=== PATIENT | female | born 1955 | race Two or more races ===

== ENCOUNTER 2024-02-09 12:17 | Outpatient (OUT) | payer MEDICARE, SELFPAY ==
--- NOTE | 2024-02-09 12:28 | ECG_ITS ---
[facility] Test Date: 2024-02-09 Pat Name: GLO MEREDITH Department: Room: - Gender: Female Cat Scan Technologist: : 1955 Requested By: Order Number: [id number] Reading MD: MADELINE GARSIA Measurements Intervals [place] Rate: 70 P: 51 DE: 159 QRS: -26 QRSD: 95 T: 18 QT: 400 QTc: 432 Interpretive Statements SINUS RHYTHM MODERATE VOLTAGE CRITERIA FOR LVH, CONSIDER NORMAL VARIANT [MEETS CRITERIA IN ONE OF: R(aVL), S(V1), R(V5), R(V5/V6)+S(V1)] POSSIBLE LATERAL MYOCARDIAL INFARCTION [30 ms Q WAVE IN I/aVL/V5/V6], PROBABLY OLD No previous ECG available for comparison Electronically Signed On 02-09-2024 22:24:06 EDT by MADELINE GARSIA
== END 2024-02-09 12:18 | disposition home or self-care (01) ==
LOC: PST 12:21
PROVIDERS: PCP Family Medicine; Visit Provider Urology
DX: Z01.810 Encounter for preprocedural cardiovascular examination (principal); N13.5 Crossing vessel and stricture of ureter without hydronephrosis
CPT/HCPCS: 93005

== ENCOUNTER 2024-02-17 12:05 | Day surgery (SDC) | payer MEDICARE, SELFPAY ==
[2024-02-09 12:56] VITALS: BP 130/79; PULSE 72; TEMP 36.3; O2SAT 98; BMI 30.7
[2024-02-17] VITALS (11 sets, daily range): BP systolic 134–155; BP diastolic 71–84; PULSE 65–98; TEMP 36.3–36.4; O2SAT 92–98; BMI 30.5
--- NOTE | 2024-02-17 | XR_ITS ---
The [address] [address] Patient Name: GLO MEREDITH MRN: [id number] date: 1955 Sex: F Assigned Patient Location: SURGOUT Current Patient Location: Accession/Order Number: [id number] Exam Date: 02/17/2024 14:00 Report Date: 02/17/2024 16:15 At the request of: NAUN OSUNA Procedure: XR urethrogram retrograde EXAM: XR urethrogram retrograde HISTORY: Kidney stone COMPARISON: None. TECHNIQUE: FINDINGS: Single frontal spot fluoroscopic image demonstrates placement of a right ureteral stent with proximal end coiled over expected location of the renal pelvis. Distal end projects over urinary bladder. XR/XR urethrogram retrograde IMPRESSION: 1. Right ureteral stent appearing to be in good position. Electronically authenticated by: GINA HONEYCUTT Date: 02/17/2024 16:15
[2024-02-17] MEDS: LACTATED RINGER'S SOLUTION 1,000 ML 50 ML IV (12:48)
[2024-02-17] MEDS: CEFAZOLIN SODIUM 2 GM/50 ML D5W PREMIX IV (13:49)
[2024-02-17] MEDS: IOHEXOL 300 MG/ML - 50 ML BTL INJ (14:39)
--- NOTE | 2024-02-17 14:54 | P.URON_ITS ---
Urology Surgery Operative Note Operative Note Procedure Date: 02/17/24 Time Out Performed: yes Pre-op Diagnosis: Right Ureteropelvic junction obstruction Post-op Diagnosis: same as pre-op Procedures performed: Cystoscopy, right retrograde pyelogram, right ureteroscopy, stent placement Anesthesia: General-LMA (Dr. Bocanegra) Primary Surgeon: Sahra Wadsworth Complications: none Estimated blood loss (mL): 0 Findings: 2+ trabeculated bladder with scattered large diverticuli at bladder base. Right distal ureter narrow, J-hooking, no filling defects or extravasation, ~ 1 cm UPJ narrowing to severe hydronephrosis R URS- able to advance ureteroscope over wire to UPJ without noted tumors or lesions. Mildly cloudy urine in renal pelvis Specimens: none Drains: 7Fr x 22-32 cm JJ right ureteral stent Incision: none Indications for Procedures: 68 year old female with symptomatic UPJ obstruction and increased hydronephrosis since 07/2023. After discussion of risks/benefits of management options, she elected to proceed with the above procedures for decompression and further evaluation. Risks were discussed including but not limited to bleeding, pain, infection, damage to surrounding structures, inability to place a stent, and need for additional procedures. The patient understands the stent is not permanent and needs to be removed or exchanged within 3 months to prevent encrustation, infection, invasive procedures and/or permanent renal damage. Detailed description of Procedure: After informed consent was obtained, the patient was brought to the operating room and transferred onto the operating table in supine position. Sequential compression devices were placed on bilateral lower extremities. The patient received the appropriate dose of preoperative IV antibiotics and general anesthesia LMA was induced. They were positioned in modified dorsolithotomy with the appropriate pressure points padded, prepped, and draped in the usual sterile fashion for this procedure. An operative safety timeout was performed confirming the patient's identity, laterality and procedure, and all present agreed to proceed. I began by inserting a 22 [place] rigid cystoscope with 30 degree lens into the patient's urethra and bladder without difficulty. There were no bladder tumors, lesions, stones or foreign bodies. Bilateral ureteral orifices were orthotopic and patent. I turned my attention to the right ureteral orifice and a 6- [place] open-ended catheter was inserted into the ureteral orifice and dilute contrast was injected for retrograde pyelogram with findings as above. A Sensor wire was inserted into the ureter up to the renal pelvis confirmed on fluoroscopy. Next a flexible ureteroscope was inserted over the wire, however unable to enter UO. A semirigid ureteroscope was inserted over the wire noting some tightness in distal ureter, able to safely advance to UPJ noting no tumors or lesions. There appeared to be narrowing of the UPJ without visible stricture, able to easily insert ureteroscope. The wire was left behind and a pull down ureteroscopy was performed confirming no other abnormalities. The wire was backloaded through the cystoscope and 7Fr x 22-32cm JJ variable length ureteral stent was advanced over the wire, noting adequate curl in the renal pelvis and bladder on fluoroscopic and direct visualization. The bladder was drained and inspected one final time to ensure adequate position of stent and no undue trauma to the bladder was done. The cystoscope was removed. The patient tolerated the procedure well without complication. The patient was awakened from anesthesia and sent to PACU in stable condition. Plan: Discharge home with stent pain medications. Follow up in 2-3 weeks with NM renal scan to determine next steps and re-evaluate symptoms. Other Provider present: No Post Operative care instructions: See discharge instructions Attending Doc Confirm Attending Attestation: Yes
== END 2024-02-17 15:42 | disposition home or self-care (01) ==
PROVIDERS: PCP Family Medicine; Visit Provider Urology
PROC: (CPT 52332; principal; 2024-02-17 13:30)
DX: N13.5 Crossing vessel and stricture of ureter without hydronephrosis (principal); E78.2 Mixed hyperlipidemia; K44.9 Diaphragmatic hernia without obstruction or gangrene; N32.89 Other specified disorders of bladder; N28.1 Cyst of kidney, acquired; Z90.710 Acquired absence of both cervix and uterus
CPT/HCPCS: 52332; 52351; 74420; J0690; J1100; J2250; J2405; J2704; Q9967

== ENCOUNTER 2024-03-03 07:21 | Outpatient (OUT) | payer MEDICARE, SELFPAY ==
--- NOTE | 2024-03-03 07:20 | NM_ITS ---
The [address] [address] Patient Name: GLO MEREDITH MRN: [id number] date: 1955 Sex: F Assigned Patient Location: [place] Current Patient Location: [place] Accession/Order Number: [id number] Exam Date: 03/03/2024 07:20 Report Date: 03/03/2024 13:46 At the request of: NAUN OSUNA Procedure: NM renal flow w/wo pharm int EXAMINATION: NM renal flow w/wo pharm int HISTORY: HYDRONEPHROSIS COMPARISON: No relevant comparison available. TECHNIQUE: After IV administration of Tc-99m MAG-3, sequential renal flow images were acquired followed by sequential static images. Quantitative analysis was performed of both kidneys. Subsequently, the patient was given Lasix IV for determination of renal washout. FINDINGS: ARTERIAL PERFUSION: Normal and symmetric. TIME TO PEAK (LEFT): 9.5 minutes (Normal-less than five minutes). TIME TO PEAK (RIGHT): 19.8 minutes (Normal-less than five minutes). PERCENT UPTAKE: Left 52% : Right 48% T 1/2 POST-LASIX (LEFT): 4.8 minutes. T 1/2 POST-LASIX (RIGHT): 43.2 minutes. (Normal < 10 min, equivocal 10-20 min, abnormal > 20 min.). BLADDER: Normal. OTHER: Negative. NM/NM renal flow w/wo pharm int IMPRESSION: Delayed time to peak on the right with abnormal post Lasix washout Electronically authenticated by: ANA GUADARRAMA Date: 03/03/2024 13:46
--- OUTSIDE RECORDS SUMMARY | 2024-03-03 07:24 | XMS_ITS | CCD ---
Author Organization [facility] Care Team Providers Care Bilingual [employer] Name Role Phone KEILY COWAN Unavailable Unavailable KEILY COWAN Unavailable Unavailable ANGELES HERNANDEZ) Admitting Unavailable ANGELES HERNANDEZ) Attending Unavailable ANGELES HERNANDEZ) Admitting Unavailable ANGELES HERNANDEZ) Attending Unavailable ANGELES HERNANDEZ) Admitting Unavailable ANGELES HERNANDEZ) Attending Unavailable ANGELES HERNANDEZ) Referring Unavailable Barb Gee Primary Care Physician Barb Gee Primary Care Provider Barb Gee Primary Care Provider BARB GEE Primary Care Unavailabl e ROSALBA RACHEL Attending Unavailable RACHELROSALBA Okeefe Referring Unavailable RACHELROSALBA [place] Admitting Unavailable ROSALBA RACHEL Attending Unavailable Julien Anthony Admitting Unavailab Julien Gant Attending Unavailab DO Ayaz Toussaint Attending Unavailable Sahra Wadsworth Attending Unavailable DO Ayaz Charles Attending Unavailable Barb Gee Primary Care Provider [phone] Sahra Wadsworth Attending Unavailable Sahra Wadsworth Attending Unavailable Sahra Wadsworth Referring Unavailable Sahra Wadsworth Attending Unavailable Allergies Allergy Classification Reported Allergen(s) Allergy Type Date of Onset Reaction(s) Facility (9 sources) Sulfonamides (Antibiotic); Translations: [SULFA (SULFONAMIDE ANTIBIOTICS)] Propensity to adverse reactions to drug (disorder) 201 7 Hives [facility] Other [place] Repository (11 sources) Sulfamethoxazole; Translations: [sulfamethoxazole ] Drug Allergy [facility] Medications Current Medications Medication Drug Class(es) Dates Sig (Normalized) Sig (Original) acetaminophen 500 mg oral tablet (15 sources) Start: 03-27-2017 take 2 tablets by mouth at bedtime acetaminophen 500 mg Tab 1,000 mg = 2 tab(s), Oral, Bedtime, Refills(s) 0, Pain Start Date: 03/27/17 Status: Ordered Comment on above: Take 2 tablets by [facility] every 6 hours. aspirin 81 mg delayed release oral tablet (6 sources) Platelet Aggregation Inhibitor, Nonsteroidal Anti-inflammatory Drug Start: 03-28-2017 take 1 tablet by mouth once daily aspirin 81 mg Oral EC Tab 81 mg = 1 tab(s), Oral, Daily, Refills(s) 0, Prophylaxis Start Date: 03/28/17 Status: Ordered calcium carbonate 1500 mg oral tablet (6 sources) Start: 11-04-2017 take 1 tablet by mouth once daily calcium (as carbonate) 600 mg oral tablet 600 mg = 1 tab(s), Oral, Daily, Refills(s) 0, Prophylaxis Start Date: 11/04/17 Status: Ordered cephalexin 500 mg oral capsule (1 source) Cephalosporin Antibacterial Start: 01-24-2024 End: 01-29-2024 take 1 capsule by mouth three times daily Keflex 500 mg Cap 500 mg = 1 cap(s), Oral, TID, X 5 day(s), # 15 cap(s), Refills(s) 0, Pharmacy: [facility] #[facility], 160, cm, 01/24/24 3:58:00 EDT, Height/Length Dosing, 80.4, kg, 01/24/24 3:58:00 EDT, Weight Dosing Start Date: 01/24/24 Stop Date: 01/29/24 Status: Ordered lubiprostone 0.024 mg oral capsule (8 sources) Chloride Channel Activator Start: 08-28-2020 End: 09-22-2022 take 1 capsule by mouth twice daily at mealtime lubiprostone (AMITIZA) 24 mcg capsule Take 1 capsule by mouth twice daily with meals. Patient will be renewing enrollment in the patient assistance program. 180 capsule 3 06/24/2022 Active Comment on above: Take 1 capsule by mo ut twice daily with meals. Take 1 capsule by [facility] twice daily with meals. Patient will be renewing enrollment in the patient assistance program. metoclopramide 10 mg oral tablet (12 sources) Dopamine-2 Receptor Antagonist Start: 11-05-2017 take 1 tablet by mouth three times daily Reglan 10 mg Tab 10 mg = 1 tab(s), Oral, TID, # 90 tab(s), Refills(s) 1, Pharmacy: [id number] Start Date: 11/05/17 Status: Ordered Start: 11-04-2017 take 5 mg by mouth t hree times daily metoclopramide 5 mg, Oral, TID, Refills(s) 0, Indigestion Start Date: 11/04/17 Status: Ordered multivitamin tablet (7 sources) Start: 08-11-2017 take 1 tablet by mouth once daily multivitamin tablet Take 1 tablet by mouth once daily. 08/11/2017 Active Start: 08-11-2017 take 1 tablet by susanne [facility] once daily multivitamin tablet Take 1 tablet by mouth once daily. 0 08/11/2017 Active Comment on above: Take 1 tablet by susanne [facility] once daily. naproxen 500 mg oral tablet (3 sources) Nonsteroidal Anti-inflammatory Drug Start: 01-24-20 take 1 tablet by mouth twice daily as needed for pain Naprosyn 500 mg Tab 500 mg = 1 tab(s), Oral, BID, PRN for pain, # 20 tab(s), Refills(s) 0, Pharmacy: [id number], 160, cm, 01/24/24 3:58:00 EDT, Height/Length Dosing, 80.4, kg, 01/24/24 3:58:00 EDT, Weight Dosing Start Date: 01/24/24 Status: Ordered omeprazole 40 mg oral tablet (6 sources) Proton Pump Inhibitor Start: 11-05-19 take 40 mg by mouth once daily omeprazole 40 mg, Oral, Daily, Refills(s) 0, Prophylaxis Start Date: 11/04/17 Status: Ordered prucalopride 2 mg oral tablet (7 sources) Start: 12-05-19 take 1 tablet by mouth once daily prucalopride 2 mg tablet (MOTEGRITY) Indications: Chronic idiopathic constipation Take 1 tablet (2 mg) by mouth once daily. 30 tablet 6 12/05/2019 Active Comment on above: Take 1 tablet (2 mg) by mouth once daily. simvastatin 10 mg oral tablet (3 sources) HMG-CoA Reductase Inhibitor take 1 tablet by mouth once daily at bedtime simvastatin (ZOCOR) 10 mg tablet Take 10 mg by mouth daily at bedtime. Active Comment on above: Take 10 mg by mouth daily at bedtime. tenapanor 50 mg oral tablet (8 sources) Start: 07-14-19 End: 02-03-20 take 1 tablet by mouth twice daily IBSRELA 50 mg tablet Indications: Irritable bowel syndrome with constipation take one tablet by mouth twice daily 60 tablet 5 02/03/2024 Active Start: 06-24-2022 take 1 tablet by susanne th twice daily tenapanor (IBSRELA) 50 mg tablet Indications: Irritable bowel syndrome with constipation Take 1 tablet (50 mg) by mouth twice daily. 60 tablet 5 06/24/2022 Active Comment on above: Take 1 tablet (50 mg ) by mouth twice daily. Take 1 tablet (50 mg ) by mouth two times a day. Zofran ODT 4 mg Tab-Dis (3 sources) Start: 01-24-2024 take 1 tablet by mouth every six hours Zofran ODT 4 mg Tab-Dis 4 mg = 1 tab(s), Oral, q6hr, # 12 tab(s), Refills(s) 0, Pharmacy: [facility], 160, cm, 01/24/24 3:58:00 EDT, Height/Length Dosing, 80.4, kg, 01/24/24 3:58:00 EDT, Weight Dosing Start Date: 01/24/24 Status: Ordered Completed/Discontinued Medications Medication Drug Class(es) Dates Sig (Normalized) Sig (Original) potassium chloride 20 meq extended release oral tablet (6 sources) Start: 11-04-2017 take 1 tablet by mouth once daily potassium chloride 20 mEq ER Tab 20 mEq = 1 tab(s), Oral, Daily, # 30 tab(s), Refills(s) 0, Prophylaxis Start Date: 11/04/17 Status: Ordered Problems Active Problems Problem Classification Problem Date Documented Da te Episodic/Chronic Disorders of lipid metabolism (2 sources) Mixed hyperlipidemia 01-27-2024 Chronic Joint disorders and dislocations; trauma-related (8 sources) Tear of meniscus of knee 03-08-2015 Episodic Comment on above: medial and lateral r ight knee Nausea and vomiting (1 source) Nausea and vomiting; Translations: [Nausea with vomiting, unspecified] Onset: 4 Episodic Other diseases of kidney and ureters (2 sources) Acquired renal cyst without neoplastic change; Translations: [Cyst of kidney, acquired] Onset: 4 Episodic Other diseases of kidney and ureters (3 sources) Hydronephrosis; Translations: [Unspecified hydronephrosis] Onset: 4 Episodic Other diseases of kidney and ureters (1 source) Stricture of ureter; Translations: [Crossing vessel and stricture of ureter without hydronephrosis] Onset: 4 Episodic Other diseases of kidney and ureters (2 sources) Cyst of kidney 01-27-2024 Episodic Other diseases of kidney and ureters (2 sources) Obstruction of pelviureteric junction 01-27-2024 Episodic Other gastrointestinal disorders (2 sources) Irritable bowel syndrome characterized by constipation; Translations: [Irritable bowel syndrome with constipation] Chronic Other nutritional; endocrine; and metabolic disorders (7 sources) Obesity; Translations: [Obesity, unspecified] Onset: 8 07-27-2017 Chronic Residual codes; unclassified (1 source) Other specified postprocedural states; Translations: [Other specified postprocedural states] Onset: 8 Unclassified (2 sources) Chest pain, unspecified / R07.9(ICD-9) Onset: 7 Unclassified (1 source) Abnormal electrocardiogram [ECG] [EKG] / R94.31(ICD-9) Onset: 7 Unclassified (1 source) Overweight / E66.3(ICD-9) Onset: 7 Unclassified (1 source) K44.9 Onset: 8 Urinary tract infections (1 source) Urinary tract infectious disease; Translations: [Urinary tract infection, site not specified] Onset: 4 Episodic Past or Other Problems Problem Classification Problem Date Documented Da te Episodic/Chronic Abdominal hernia (10 sources) Diaphragmatic hernia without obstruction or gangrene; Translations: [Paraesophageal hernia] Onset: 07-21-2017 07-21-2017 Episodic Abdominal pain (9 sources) Epigastric pain; Translations: [Epigastric pain] Onset: 08-28-2017 08-28-2017 Episodic Nonspecific chest pain (1 source) Chest pain, unspecified; Translations: [Chest pain, unspecified] Onset: 04-23-2017 Episodic Other disorders of stomach and duodenum (7 sources) Gastroparesis syndrome; Translations: [Gastroparesis] Onset: 09-09-2018 09-09-2018 Episodic Other gastrointestinal disorders (1 source) Personal history of other diseases of the digestive system; Translations: [Personal history of other diseases of the digestive system] Onset: 08-28-2017 Episodic Residual codes; unclassified (7 sources) History of hernia repair; Translations: [Other specified postprocedural states] Onset: 08-28-2017 08-28-2017 Episodic Results Test Name Value Interpretation Reference Range Facility Urology Office/Clinic Noteon 01-27-2024 Urology Office/Clinic Note Urology Office/Clinic Note Chief Complaint [facility] follow up HPI Staff [facility] ER visit 01/24/24. Presented with R abdominal pain. UA abnormal. Tx'd w/ Keflex 500mg tid x 5 days. Does not appear that a culture was sent. CT AP w con results: Markedly dilated right renal pelvis and calyces, increasing from prior studies, with mild right perinephric edema. Small nonenhancing right renal cortical cysts, not significantly changed. Unremarkable left kidney. Labs ~Cr 1.0, eGFR 61. Dysuria: denies pain and burning Incomplete bladder emptying: denies Hematuria: denies visible blood Frequency: denies Urgency: denies Nocturia: denies Stream: denies hesitancy Leaking: denies Post void dripping: denies Wearing pads/ Depends: denies Urge incontinence: denies Stress incontinence: denies Incontinence without Sensory Awareness: denies Abdominal pain: denies Flank pain: right sided pain Sexual complaints: _ History of Present Illness Tests reviewed: reviewed UA, external ER notes and labs, ucx, CT scans I have reviewed the previous health record information and history for this patient from external providers. I have reviewed and verified the staff HPI to be accurate for this encounter. Review of Systems PHQ Score Initial Depression Screen Score: 0 SCORE ROS - Provider Constitutional: denies weight loss, denies hot flashes. Eyes: denies eye problems. Gastrointestinal: denies nausea, denies vomiting. Cardiovascular: denies chest pain or angina. Integumentary: no dryness Musculoskeletal: denies musculoskeletal symptoms. ENMT: denies otolaryngeal symptoms. Respiratory: no shortness of breath. Heme/Lymph: denies easy bleeding tendency, denies easy bruising tendency. Psychiatric: no confusion, no anxiety. Genitourinary: See HPI. Physical Exam Vitals & Measurements T: 36 ?C(Temporal Artery) HR: 72(Peripheral) BP: 130/76 General Appearance: alert , no acute distress, well nourished, well developed female. Head: normocephalic . Eyes: normal orbit and globe. ENMT: normal examination of external ears. Chest: symmetric chest rise, respirations non labored . Cardiovascular: regular rate and rhythm. Abdomen: soft , non distended, no tenderness Genitourinary: bladder nonpalpable, no flank tenderness. Skin: warm, dry, no bruising. Psychiatric: cooperative, affect appropriate for age, normal judgement, euthymic mood. Assessment/Plan 68 yo female new pt here for f/u to [facility] ER visit due to UPJ obstruction with hydro. BBS 6. 1. 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 - Prominent R renal collecting system with mild caliectasis, to level of R UPJ unchanged. No calculi bilaterally. No L hydro. [facility] ER 01/24/24 due to right lower abdominal pain and vomiting. UCx neg. CT AP w con - Markedly dilated R renal pelvis and calyces, increasing from prior studies, with mild R perinephric edema. Unremarkable L kidney. Renal fxn - BUN 16, Cr 1.0, GFR 61 UA today shows small blood and small leuks. Taking Keflex per ER. Hx of mild intermittent dull pain in the past, not as severe as ER presentation. States pain has improved. No fever or chills. Denies any changes in pain with urination. Reviewed imaging results. Does not recall high fluid intake around time of recent ER visit which would have contributed to worsening hydro. Advised pt she has an UPJ obstruction which can be congenital or acquired. Discussed risk of compromised renal function or renal failure. Educated pt on next steps including stent placement for acute decompression. -Advised pt recent urine culture was negative, can stop taking abx. -Will schedule Cystoscopy with Right Retrogrades, Right stent placement. The procedure risks, benefits, alternatives and complications have been discussed with the patient. These include but are not limited to bleeding, pain, infection, ureteral perforation, extravasation, stricture formation, sepsis, obstruction. he need for ancillary procedures such as stent placement and removal, retrograde urography, and percutaneous nephrostomy were also discussed. The patient also understood that a ureteral stent may be placed and removal of the stent is critical. Failure to follow up for stent removal can result in recurrent UTIs, encrustation of the stent, loss of kidney function and need for nephrectomy. All of their questions and concerns have been addressed. Full informed consent has been obtained. Will order General anesthesia. -Obtain NM Renal scan after stent in place x 2 weeks and follow up to review -Will reassess renal function and risks/benefits of pyeloplasty vs watchful waiting pending results. 2. Hydronephrosis, right (N13.30: Unspecified hydronephrosis) See #1. 3. Renal cyst (N28.1: Cyst of kidney, acquired) CT AP w con 07/30/[address] [facility] - Multiple cortical cyst, right kidney, largest measuring 1 cm, unchanged. Exophytic LUP (more content not included)... Normal [facility] Comment on above: Result Comment: Elec tronically Signed By: Sahra Wadsworth MD\.br\Date and Time Signed: 01/27/24 11:57 EDT\.br\Electronically Co-Signed By: Claudia Mrate\.br\Date and Time Co-Signed: 01/27/24 11:00 EDT C Urineon 01-26-2024 Bacteria identified Cx Nom (U) Microbiology PROCEDURE: Urine Culture [R1] SOURCE: U CleanCatch BODY SITE: COLLECTED DATE/TIME: 01/24/2024 04:18 EDT RECEIVED DATE/TIME: 01/24/2024 05:09 EDT START DATE/TIME: 01/24/2024 05:09 EDT FREE TEXT SOURCE: Ayaz Charles DO, DO, Kaylinn A FINAL REPORTS Final Report [] Verified Date/Time: 01/26/2024 09:24 EDT 3,000 cfu/ml Mixed skin contaminants Performing Locations R1: This test was performed at: [facility], [address] [place] [address], [id number]- , [place], Normal [facility] Comment on above: Performed By: #### 2 [id number] #### [facility] [address] [place] [address] BMPon 01-24-2024 Anion gap [Moles/Vol] 14 mmol/L Normal 6-16 [facility] Comment on above: Performed By: #### 2 [id number] #### [facility] [address] [place] [address] Calcium [Mass/Vol] 9.7 mg/dL Normal 8.9-11.1 [facility] Comment on above: Performed By: #### 2 [id number] #### [facility] [address] [place] [address] Chloride [Moles/Vol] 101 mmol/L Normal 101-111 [facility] Comment on above: Performed By: #### 2 [id number] #### [facility] [address] [place] [address] CO2 [Moles/Vol] 26 mmol/L Normal 21-31 [facility] Comment on above: Performed By: #### 2 [id number] #### [facility] [address] [place] [address] Creatinine [Mass/Vol] 1.0 mg/dL Normal 0.5-1.3 [facility] Comment on above: Performed By: #### 2 [id number] #### [facility] [address] [place] [address] Glucose [Mass/Vol] 157 mg/dL Normal 55-199 [facility] Comment on above: Performed By: #### 2 [id number] #### [facility] [address] [place] [address] Potassium [Moles/Vol] 4.1 mmol/L Normal 3.5-5.3 [facility] Comment on above: Performed By: #### 2 [id number] #### [facility] [address] [place] [address] Sodium [Moles/Vol] 137 mmol/L Normal 135-145 [facility] Comment on above: Performed By: #### 2 [id number] #### [facility] [address] [place] [address] Urea nitrogen [Mass/Vol] 16 mg/dL Normal 5-21 [facility] Comment on above: Performed By: #### 2 [id number] #### [facility] [address] [place] [address] Urea nitrogen/Creatinine [Mass ratio] 16 No Units Normal 10-20 [facility] Comment on above: Performed By: #### 2 [id number] #### [facility] [address] [place] [address] CBC w/ Auto Diffon 4 Basophils/100 WBC (Bld) 0.4 % Normal 0.0-2.0 [facility] Comment on above: Performed By: #### 2 [id number] #### [facility] [address] [place] [address] Basophils/Leukocytes Auto (Bld) [Pure # fraction] 0.0 E9/L Normal 0.0-0.2 [facility] Comment on above: Performed By: #### 2 [id number] #### [facility] [address] [place] [address] Eosinophils (Bld) [#/Vol] 0.0 E9/L Normal 0.0-0.5 [facility] Comment on above: Performed By: #### 2 [id number] #### [facility] [address] [place] [address] Eosinophils/100 WBC (Bld) 0.0 % Normal 0.0-8.0 [facility] Comment on above: Performed By: #### 2 [id number] #### [facility] [address] [place] [address] Erythrocyte distribution width (RBC) [Ratio] 13.2 % Normal 10.9-14.2 [facility] Comment on above: Performed By: #### 2 [id number] #### [facility] [address] [place] [address] Hematocrit (Bld) [Volume fraction] 45.7 % Normal 34.0-46.0 [facility] Comment on above: Performed By: #### 2 [id number] #### [facility] [address] [place] [address] Hemoglobin (Bld) [Mass/Vol] 15.9 g/dL Normal 12.0-16.0 [facility] Comment on above: Performed By: #### 2 [id number] #### [facility] [address] [place] [address] Lymphocytes (Bld) [#/Vol] 0.9 E9/L Low 1.0-4.0 [facility] Comment on above: Performed By: #### 2 [id number] #### [facility] [address] [place] [address] Lymphocytes/100 WBC (Bld) 8.4 % Low 14.0-50.0 [facility] Comment on above: Performed By: #### 2 [id number] #### [facility] [address] [place] [address] MCH (RBC) [Entitic mass] 30.0 pg Normal 27.0-34.0 [facility] Comment on above: Performed By: #### 2 [id number] #### [facility] [address] [place] [address] MCHC (RBC) [Mass/Vol] 34.7 g/dL Normal 31.4-36.0 [facility] Comment on above: Performed By: #### 2 [id number] #### [facility] [address] [place] [address] MCV (RBC) [Entitic vol] 86.5 fL Normal 80.0-100.0 [facility] Comment on above: Performed By: #### 2 [id number] #### [facility] [address] [place] [address] Monocytes (Bld) [#/Vol] 0.3 E9/L Normal 0.2-1.0 [facility] Comment on above: Performed By: #### 2 [id number] #### [facility] [address] [place] [address] Neutrophils (Bld) [#/Vol] 9.1 E9/L High 2.0-7.5 [facility] Comment on above: Performed By: #### 2 [id number] #### [facility] [address] [place] [address] Neutrophils/100 WBC (Bld) 88.4 % High 36.0-75.0 [facility] Comment on above: Performed By: #### 2 [id number] #### [facility] [address] [place] [address] Platelet mean volume (Bld) [Entitic vol] 8.4 fL Normal 6.4-10.8 [facility] Comment on above: Performed By: #### 2 [id number] #### [facility] [address] [place] [address] Platelets (Bld) [#/Vol] 306.0 E9/L Normal 150.0-500.0 [facility] Comment on above: Performed By: #### 2 [id number] #### [facility] [address] [place] [address] RBC (Bld) [#/Vol] 5.3 E12/L Normal 4.3-5.9 [facility] Comment on above: Performed By: #### 2 [id number] #### [facility] [address] [place] [address] WBC corrected for nucl RBC Auto (Bld) [#/Vol] 10.3 E9/L Normal 4.0-11.0 [facility] Comment on above: Performed By: #### 2 [id number] #### [facility] [address] [place] [address] CHEMISTRYOrdered By: SYSTEM SYSTEM on 01-24-2024 Albumin [Mass/Vol] 4.2 g/dL Normal 3.3 - 5.0 gm/dL Remisol Chem Albumin/Globulin [Mass ratio] 1.4 {ratio} Normal 1.1 - 2.2 Remisol Chem ALP [Catalytic activity/Vol] 98 [iU]/d Normal 21 - 98 Int._Unit/L Remisol Chem ALT No additional P-5'-P [Catalytic activity/Vol] 20 [iU]/d Normal 6 - 46 Int._Unit/L Rem[facility] Chem Anion gap [Moles/Vol] 14 mmol/L Normal 6 - 16 mEq/L R emisol Chem AST [Catalytic activity/Vol] 29 [iU]/d Normal 5 - 43 Int._Unit/L [facility] Bilirubin [Mass/Vol] 1.0 mg/dL Normal 0.0 - 1 .1 mg/dL Rem[facility] Bilirubin.direct [Mass/Vol] 0.1 mg/dL Normal 0.0 - 0.4 mg/dL [facility] Bilirubin.indirect [Mass or moles/Vol] 0.9 mg/dL Normal 0.1 - 0.9 mg/dL [facility] Calcium [Mass/Vol] 9.7 mg/dL Normal 8.9 - 11. 1 mg/dL [facility] Chloride [Moles/Vol] 101 mmol/L Normal 101 - 1 11 mmol/L [facility] CO2 [Moles/Vol] 26 mmol/L Normal 21 - 31 mmol/L [facility] Creatinine [Mass/Vol] 1.0 mg/dL Normal 0.5 - 1.3 mg/dL [facility] eGFR 61 mL/min/1.73 m2 Normal >=59mL/min /1 .73 m2 [facility] Globulin (S) [Mass/Vol] 2.9 g/dL Normal 1.4 - 4.0 gm/dL [facility] Glucose [Mass/Vol] 157 mg/dL Normal 55 - 199 mg/dL [facility] Lipase [Catalytic activity/Vol] 19 U/L Normal 13 - 58 unit/L [facility] Potassium [Moles/Vol] 4.1 mmol/L Normal 3.5 - 5.3 mmol/L [facility] Protein [Mass/Vol] 7.1 g/dL Normal 6.0 - 7.8 gm/dL [facility] Sodium [Moles/Vol] 137 mmol/L Normal 135 - 145 mmol/L [facility] Urea nitrogen [Mass/Vol] 16 mg/dL Normal 5 - 21 mg/dL [facility] Urea nitrogen/Creatinine [Mass ratio] 16 mg/mg Normal 10 - [address] Abdomen/Pelvis w/ Contras ton 01-24-2024 CT Abdomen/Pelvis w/ Contrast Exam Date/Time: 01/24/2024 05:13 EDT Reason for Exam: ABDOMINAL PAIN, ACUTE, NONLOCALIZED;Other (please specify) Report IMPRESSION: INCREASING MARKED DILATATION OF THE RENAL PELVIS AND CALYCES AND MILD PERINEPHRIC EDEMA FROM PRIOR STUDIES, CONSISTENT WITH UPJ OBSTRUCTION. NO OTHER SIGNIFICANT CHANGES IDENTIFIED. EXAM: CT Abdomen/Pelvis w/ Contrast DATE: 01/24/2024 4:56 AM CLINICAL HISTORY: ABDOMINAL PAIN, ACUTE, NONLOCALIZED. COMPARISON: 07/30/2023. TECHNIQUE: Spiral imaging was obtained of the abdomen and pelvis after the uneventful infusion of approximately 100 mL of Isovue [address] scans at this facility use dose modulation, iterative reconstruction, and/or weight based dosing when appropriate to reduce radiation dose to as low as reasonably achievable. Unless otherwise stated, incidental findings identified in this report do not require routine follow-up imaging. FINDINGS: Liver: No enlargement, significant fatty infiltration, suspicious mass or lesion. Biliary: The gallbladder has been removed. No abnormal biliary ductal dilatation. Pancreas: No mass, organized fluid collection, or abnormal pancreatic ductal dilatation. Spleen: Unremarkable. Adrenals: Unremarkable. Kidneys: Markedly dilated right renal pelvis and calyces, increasing from prior studies, with mild right perinephric edema. Small nonenhancing right renal cortical cysts, not significantly changed. Unremarkable left kidney. GI tract: No abnormal dilation or wall thickening. Small hiatal hernia. Mild sigmoid diverticulosis. The appendix is not confidently identified, without findings to suggest acute appendicitis. Lymph nodes: No pathologically enlarged lymph nodes. Mesentery/peritoneum : No ascites or mass. Retroperitoneum: No organized fluid collection or mass. Pelvis: The urinary bladder is unremarkable. Previous hysterectomy Vasculature: Mild calcified atherosclerotic plaquing. Musculoskeletal: No acute osseous findings identified. Moderate degenerative changes, predominantly of the mid to lower lumbar facet joints and both hips. Lower thorax: Noncontributory. Report Ordering Provider: Ayaz Charles FINAL REPORT Dictated: 01/24/2024 10:11 am Tonny Schumacher MD Signed (Electronic Signature): 01/24/2024 10:11 am Signed by: Tonny Schumacher MD Transcribed by: TYLER Technologist: MADONNA Technical Comments GFR (mL/min/1/73m2) 51 Contrast: Isovue 300 Contrast amount in ml's: 100 Rectal Contrast Given? No Normal [facility] ED Clinical Summaryon 2023 ED Clinical Summary ED Clinical Summary [address] [address] ED Clinical Summary Person Information Name: JENNIFER MEREDITH [facility] Age: 68 Years : 1955 Sex: Female Language: Mosotho PCP: Barb Gee MD Marital Status: Single Phone: [phone] Visit Id: Visit Reason: Vomiting; Nausea; Abdominal pain; RT BACK PAIN, VOMITING Speciality: Acuity: 3 Enc Type: Emergency Med Service: Emergency Arrival: 01/24/2024 03:48:58 Discharge: 01/24/2024 06:04:16 LOS: 000 02:16 Checkin: 01/24/2024 03:48:58 Checkout: 01/24/2024 06:04:16 Dispo Type: Home (Routine DC) EVENTS: Event Name Event Status Request Date/Time Start Date/Time Complete Date/Time Arrive Complete 01/24/2024 03:48:58 01/24/2024 03:48:58 01/24/2024 03:48:58 Document Home Meds Request 01/24/2024 03:48:58 Triage Complete 01/24/2024 03:48:58 01/24/2024 03:58:10 01/24/2024 03:58:10 Dr Exam Complete 01/24/2024 03:50:40 01/24/2024 03:50:40 01/24/2024 03:50:40 Registration Complete 01/24/2024 03:50:40 01/24/2024 03:53:01 01/24/2024 03:53:01 Reg Complete Request 01/24/2024 03:53:01 Reg Bed Request Complete 01/24/2024 03:53:01 01/24/2024 03:53:01 01/24/2024 03:53:01 Bed Assign Complete 01/24/2024 03:55:59 01/24/2024 03:55:59 01/24/2024 03:55:59 RN Exam Complete 01/24/2024 03:55:59 01/24/2024 04:21:32 01/24/2024 04:21:32 CT Complete 01/24/2024 04:02:25 01/24/2024 04:56:03 01/24/2024 05:13:13 Meds Admin Complete 01/24/2024 04:02:25 01/24/2024 04:15:26 Pending Labs Complete 01/24/2024 04:02:25 01/24/2024 04:55:04 Lab Complete 01/24/2024 04:02:25 01/24/2024 04:55:04 Pending Labs Complete 01/24/2024 04:29:06 01/24/2024 04:29:06 01/24/2024 04:55:04 Lab Complete 01/24/2024 04:29:06 01/24/2024 04:29:06 01/24/2024 04:55:04 Pending Labs Inlab 01/24/2024 04:43:13 01/24/2024 04:43:13 Lab Inlab 01/24/2024 04:43:13 01/24/2024 04:43:13 Meds Admin Complete 01/24/2024 05:01:20 01/24/2024 05:18:59 Meds Admin Complete 01/24/2024 05:49:16 01/24/2024 05:58:12 Discharge Complete 01/24/2024 05:52:19 01/24/2024 06:04:20 01/24/2024 06:04:20 Transfer Complete 01/24/2024 06:04:20 01/24/2024 06:04:20 01/24/2024 06:04:20 ADDRESS: [facility] [address] [facility] [phone] PHYS DOC NOTES: MEDICAL INFORMATION: Prescriptions Given: New Medications [facility], [address] [place], [place] [id number], [phone] cephalexin (Keflex 500 mg Cap) 1 Capsules By Mouth 3 times a day for 5 Days. Refills: 0. naproxen (Naprosyn 500 mg Tab) 1 Tablets By Mouth 2 times a day as needed for pain. Refills: 0. ondansetron (Zofran ODT 4 mg Tab-Dis) 1 Tablets By Mouth every 6 hours. Refills: 0. Medications to Continue with No Changes Other Medications acetaminophen (acetaminophen 500 mg Tab) 2 Tablets By Mouth at bedtime. aspirin (aspirin 81 mg Oral EC Tab) 1 Tablets By Mouth every day. calcium carbonate (calcium (as carbonate) 600 mg oral tablet) 1 Tablets By Mouth every day. metoclopramide 5 Milligram By Mouth 3 times a day. metoclopramide (Reglan 10 mg Tab) 1 Tablets By Mouth 3 times a day. Refills: 1. omeprazole 40 Milligram By Mouth every day. potassium chloride (potassium chloride 20 mEq ER Tab) 1 Tablets By Mouth every day. PATIENT EDUCATION INFORMATION: Instructions: Urinary Tract Infection, Adult, Uzzt-ha-Ovls; Nausea and Vomiting, Adult, Zbvj-[id number]-Ctzc; Abdominal Pain, Adult, Osre-is-Izfh Follow up: With: Address: When: Sahra Wadsworth In 3 days 01/27/2024 Comments: Take the antibiotics as prescribed you have completed the course. You can use the pain medication, nausea medication as prescribed as needed for pain and nausea. Please follow-up with your primary care doctor in addition to urology for further evaluation of your kidney cyst. Please return to the ED for any new or worsening symptoms. With: Address: When: Barb Gee [address] [place] [address] Business (1) In 3 days 01/27/2024 DIAGNOSIS: Abdominal pain, acute; Acute UTI (urinary tract infection); N&V (nausea and vomiting); Parapelvic renal cyst Normal [facility] ED Note-Physicianon 01-24-20 ED Note-Physician ED Note-Physician Basic Information Time Seen: Ayaz Charles DO 01/24/2024 03:50 Chief Complaint pain to right lower abd. vomiting this am. History of Present Illness Patient is a 68-year-old female with past medical history of IBS, gastroparesis presenting to the ED for evaluation of right lower abdominal pain and vomiting. Patient states she has had intermittent symptoms over the last several years, states she has had multiple imaging studies have been done without definitive cause found. Patient states the pain started this morning with associated nausea and vomiting, described as sharp in the right lower abdomen. Patient does note a history of a cholecystectomy, hysterectomy. Denies any fevers, chills chest pain, shortness of breath. Review of Systems A 10 point review of systems is negative except as noted above. Medical and Surgical History: Reviewed and noted Social history: Lives at home Tobacco: Denies Physical Exam Vitals & Measurements T: 36.5 ?C(Oral) HR: 68(Peripheral) RR: 16 BP: 145/69 SpO2: 99% HT: 160 cm WT: 80.4 kg BMI: 31.41 General: Well developed, non toxic appearing, no acute distress HEENT: Head atraumatic, Mucosa moist, hearing grossly normal Neck: No JVD, tracheal deviation Cardiac: Regular rate, rhythm, no murmurs, or gallops, 2+ radial pulses Respiratory: Lungs clear to auscultation B/L, normal respiratory effort Abdomen: Soft, mild tenderness palpation of the right lower abdomen no rebound or guarding, no peritoneal signs Extremities: No edema noted in the LE B/L, no tenderness to palpation Neurologic: Alert and oriented, speech clear Skin: No rashes or lesions Psych: Appropriate mood and behavior Medical Decision Making MEDICAL DECISION MAKING Number and Complexity of Problems Differential Diagnosis: [] [facility] Data External documents reviewed: [] My EKG interpretation: [] My CT interpretation: [] My X-ray interpretation: [] My Ultrasound interpretation: [] Decision rules/scores evaluated: [] Discussed with: [] Treatment and Disposition ED Course: Patient is a 68-year-old female presenting to the ED for evaluation of right-sided abdominal pain. Patient is nontoxic on arrival, no acute stress. Does have right-sided abdominal pain on examination. Laboratory evaluation is obtained, CT and pelvis is ordered. Patient is given Bentyl, Zofran, IV fluids. Patient's laboratory evaluation is unremarkable exception of urinary tract infection. Patient is given [address] imaging shows no acute findings however there is an incidentally noted large right parapelvic cyst of the kidney. Discussed findings with patient explained that this could be causing her symptoms due to the size of this and gave her a referral to urology. Patient can continue to planing of pain is given Toradol. She is discharged home with prescription for Keflex, naproxen, Zofran. She is to follow-up with her primary care doctor in addition to urology for further evaluation management. She is to return to the ED for any new or worsening symptoms. Shared decision making: [] Code status: [] Assessment/Plan Abdominal pain, acute (R10.9: Unspecified abdominal pain) Acute UTI (urinary tract infection) (N39.0: Urinary tract infection, site not specified) N&V (nausea and vomiting) (R11.2: Nausea with vomiting, unspecified) Parapelvic renal cyst (N28.1: Cyst of kidney, acquired) Orders: ceftriaxone + Sodium Chloride 0.9% intravenous solution 50 mL, 1,000 mg = 1 EA, IV Piggyback, Once, Stop date 01/24/24 5:00:00 EDT, STAT, Start date 01/24/24 5:00:00 EDT, 100 mL/hr, Infuse over 30 minute(s), 01/24/24 5:00:00 EDT cephalexin, 500 mg = 1 cap(s), Oral, TID, X 5 day(s), # 15 cap(s), Refills(s) 0, Pharmacy: [facility], 160, cm, 01/24/24 3:58:00 EDT, Height/Length Dosing, 80.4, kg, 01/24/24 3:58:00 EDT, Weight Dosing dicyclomine, 20 mg = 2 mL, Injection, IntraMuscular, Once, Stop date 01/24/24 4:02:00 EDT, STAT, Start date 01/24/24 4:02:00 EDT, 01/24/24 4:02:00 EDT ketorolac, 15 mg = 1 mL, Injection, IV Push, Once, Stop date 01/24/24 5:49:00 EDT, STAT, Start date 01/24/24 5:49:00 EDT, 01/24/24 5:49:00 EDT naproxen, 500 mg = 1 tab(s), Oral, BID, PRN for pain, # 20 tab(s), Refills(s) 0, Pharmacy: [facility], 160, cm, 01/24/24 3:58:00 EDT, Height/Length Dosing, 80.4, kg, 01/24/24 3:58:00 EDT, Weight Dosing ondansetron, 4 mg = 2 mL, Injection, IV Push, Once, Stop date 01/24/24 4:02:00 EDT, STAT, Start date 01/24/24 4:02:00 EDT, 01/24/24 4:02:00 EDT ondansetron, 4 mg = 1 tab(s), Oral, q6hr, # 12 tab(s), Refills(s) 0, Pharmacy: [facility], 160, cm, 01/24/24 3:58:00 EDT, Height/Length Dosing, 80.4, kg, 01/24/24 3:58:00 EDT, Weight Dosing Sodium Chloride 0.9% intravenous solution, 1,000 mL, Soln-IV, IV, Once, Stop date 01/24/24 4:02:00 EDT, STAT, Start date 01/24/24 4:02:00 EDT, Infuse over 61, minute(s) Basic Metabolic Panel CBC w/ Auto (more content not included)... Normal [facility] Comment on above: Result Comment: Elec tronically Signed By: Ayaz Charles DO.fanny\Date and Time Signed: 01/24/24 05:54 EDT ED Patient Summaryon ED Patient Summary ED Patient Summary [place] [id number] Patient Discharge Instructions Person Information Name: JENNIFER MEREDITH Age: 68 Years Arrival Date: 01/24/2024 03:48:58 Discharge Diagnosis: Abdominal pain, acute; Acute UTI (urinary tract infection); N&V (nausea and vomiting); Parapelvic renal cyst Primary Care Physician: Barb Gee MD Provider Information Primary Provider: Ayaz Charles DO Advanced Hogshead Roller:None The exam and treatment you received in the Emergency Department were for an urgent problem and are not intended as complete care. It is important that you follow up with a doctor, nurse practitioner, or physician?s trust manager assistant for ongoing care. If your symptoms become worse or you do not improve as expected and you are unable to reach your usual health care provider, you should return to the Emergency Department. We are available 24 hours a day. JENNIFER MEREDITH Maurilio has been given the following list of patient education materials, prescriptions and follow-up instructions: Follow-up Instructions: With: Address: When: Sahra Wadsworth In 3 days 01/27/2024 Comments: Take the antibiotics as prescribed you have completed the course. You can use the pain medication, nausea medication as prescribed as needed for pain and nausea. Please follow-up with your primary care doctor in addition to urology for further evaluation of your kidney cyst. Please return to the ED for any new or worsening symptoms. With: Address: When: Barb Gee [address] [place] [id number] [facility] (1) In 3 days 01/27/2024 In the event that this physician does not participate in your insurance network, please consult with your insurance company to find a nearby participating provider. Patient Education Materials: Urinary Tract Infection, Adult, Kpsq-oi-Bgqz; Nausea and Vomiting, Adult, Nnpb-dm-Dqxp; Abdominal Pain, Adult, Djyd-nf-Bjuw A MESSAGE TO ALL PATIENTS REGARDING OPIOIDS PRESCRIPTION OPIOIDS: WHAT YOU NEED TO KNOW Prescription opioids can be used to help relieve iwdroqls-bn-hckdkr pain and are often prescribed following a surgery or injury, or for certain health conditions. These medications can be an important part of the treatment but also come with serious risks. It is important to work with your healthcare provider to make sure you are getting the safest, most effective care. WHAT ARE THE RISKS AND SIDE EFFECTS OF OPIOID USE? Prescription opioids carry serious risks of addiction and overdose, especially with prolonged use. An opioid overdose, often marked by slowed breathing, can cause sudden . The use of prescription opioids can have a number of side effects as well, even when taken as directed: ? Tolerance?meaning you might need to take more of the medication for the same pain relief ? Physical dependence?meaning you have symptoms of withdrawal when a medication is stopped ? Increased sensitivity to pain ? Constipation ? Nausea, vomiting, and dry mouth ? Sleepiness and dizziness ? Confusion ? Depression ? Low levels of testosterone that can result in lower sex drive, energy, and strength ? Itching and sweating RISKS ARE GREATER WITH: ? History of drug misuse, substance use disorder, or overdose ? Mental health conditions (such as depression or anxiety) ? Sleep apnea ? Older age (65 years and older) ? Avoid alcohol while taking prescription opioids. Also, unless specifically advised by your health care provider, medications to avoid include: ? Benzodiazepines (such as Xanax or Valium) ? Muscle relaxants (such as Soma or Flexeril) ? Hypnotics (such as Ambien or Lunesta) ? Other prescription opioids KNOW YOUR OPTIONS Talk to your health care provider about ways to manage your pain that don?t involve prescription opioids. Some of these options may actually work better and have fewer risks and side effects. Options may include: ? Pain relievers such as acetaminophen, ibuprofen, and naproxen ? Some medication that are also used for depression or seizures ? Physical therapy and exercise ? Cognitive behavioral therapy, a psychological, goal-directed approach, in which patients learn how to modify physical, behavioral, and emotional triggers of pain and stress. IF YOU ARE PRESCRIBED OPIOIDS FOR PAIN: ? Never take opioids in greater amounts or more often than prescribed. ? Follow up with your primary health care provider. o Work together to create a plan on how to manage your pain. o Talk about ways to help manage your pain that don?t involve prescription opioids. o Talk about any and all concerns and side effects. ? Help prevent misuse and abuse o Never sell or share prescription opioids. o Never use another person?s prescription opioids. ? Store prescription opioids in a secure place and out of reach of ot (more content not included)... Normal [facility] HEMATOLOGYOrdered By: Amarjit Dick on 01-24-2024 Basophils/100 WBC (Bld) 0.4 % Normal 0.0 - 2.0 % Remisol Heme Basophils/Leukocytes Auto (Bld) [Pure # fraction] 0.0 E9/L Normal 0.0 - 0.2 E9/L Remisol Heme Eosinophils (Bld) [#/Vol] 0.0 E9/L Normal 0.0 - 0.5 E9/L Remisol Heme Eosinophils/100 WBC (Bld) 0.0 % Normal 0.0 - 8.0 % Remisol Heme Erythrocyte distribution width (RBC) [Ratio] 13.2 % Normal 10.9 - 14.2 % Remisol Heme Hematocrit (Bld) [Volume fraction] 45.7 % Normal 34.0 - 46.0 % Remisol Heme Hemoglobin (Bld) [Mass/Vol] 15.9 g/dL Normal 12.0 - 16.0 gm/dL Remisol Heme Lymphocytes (Bld) [#/Vol] 0.9 E9/L Low 1.0 - 4.0 E9/L Remisol Heme Lymphocytes/100 WBC (Bld) 8.4 % Low 14.0 - 50.0 % Remisol Heme MCH (RBC) [Entitic mass] 30.0 pg Normal 27.0 - 34.0 pg Remisol Heme MCHC (RBC) [Mass/Vol] 34.7 g/dL Normal 31.4 - 36.0 gm/dL Remisol Heme MCV (RBC) [Entitic vol] 86.5 fL Normal 80.0 - 100.0 fL Remisol Heme Monocytes (Bld) [#/Vol] 0.3 E9/L Normal 0.2 - 1.0 E9/L Remisol Heme Monocytes/100 WBC (Bld) 2.8 % Low 4.0 - 14.0 % Remisol Heme Neutrophils (Bld) [#/Vol] 9.1 E9/L High 2.0 - 7.5 E9/L Remisol Heme Neutrophils/100 WBC (Bld) 88.4 % High 36.0 - 75.0 % Remisol Heme Platelet mean volume (Bld) [Entitic vol] 8.4 fL Normal 6.4 - 10.8 fL Remisol Heme Platelets (Bld) [#/Vol] 306.0 E9/L Normal 150.0 - 500.0 E9/L Remisol Heme RBC (Bld) [#/Vol] 5.3 E12/L Normal 4.3 - 5.9 E12/L Remisol Heme WBC corrected for nucl RBC Auto (Bld) [#/Vol] 10.3 E9/L Normal 4.0 - 11.0 E9/L Remisol Heme Hep Func Panelon 01-24-2024 Albumin [Mass/Vol] 4.2 g/dL Normal 3.3-5.0 [facility] Comment on above: Performed By: #### 2 [id number] #### [facility] [address] [place] [address] Albumin/Globulin (S) [Mass conc ratio] 1.4 Normal 1.1-2.2 [facility] Comment on above: Performed By: #### 2 [id number] #### [facility] [address] [place] [address] ALP [Catalytic activity/Vol] 98 Int._Unit/L Normal 21-98 [facility] Comment on above: Performed By: #### 2 [id number] #### [facility] [address] [place] [address] ALT No additional P-5'-P [Catalytic activity/Vol] 20 Int._Unit/L Normal 6-46 [facility] Comment on above: Performed By: #### 2 [id number] #### [facility] [address] [place] [address] AST [Catalytic activity/Vol] 29 Int._Unit/L Normal 5-43 [facility] Comment on above: Performed By: #### 2 [id number] #### [facility] [address] [place] [address] Bilirubin [Mass/Vol] 1.0 mg/dL Normal 0.0-1.1 [facility] Comment on above: Performed By: #### 2 [id number] #### [facility] [address] [place] [address] Bilirubin.direct [Mass/Vol] 0.1 mg/dL Normal 0.0-0.4 [facility] Comment on above: Performed By: #### 2 [id number] #### [facility] [address] [place] [address] Bilirubin.indirect [Mass or moles/Vol] 0.9 mg/dL Normal 0.1-0.9 [facility] Comment on above: Performed By: #### 2 [id number] #### [facility] [address] [place] [address] Globulin (S) [Mass/Vol] 2.9 g/dL Normal 1.4-4.0 [facility] Comment on above: Performed By: #### 2 [id number] #### [facility] [address] [place] [address] Protein [Mass/Vol] 7.1 g/dL Normal 6.0-7.8 [facility] Comment on above: Performed By: #### 2 [id number] #### [facility] [address] [place] [address] Lipase Levelon 01-24-2024 Lipase [Catalytic activity/Vol] 19 U/L Normal 13-58 [facility] Comment on above: Performed By: #### 2 [id number] #### [facility] [address] [place] [address] UA with Cult Rflxon 01-24-20 24 Bilirubin Ql (U) Negative Normal Negative [facility] Comment on above: Performed By: #### 4 [id number] #### [facility] [address] [place] [address] Clarity (U) Clear Normal Clear [facility] Comment on above: Performed By: #### 4 [id number] #### [facility] [address] [place] [address] Color (U) Light-Yellow Normal Yellow [facility] Comment on above: Result Comment: Micr oscopic readings are only performed on those samples that meet specific criteria set forth by [facility]. Performed By: #### 4 [id number] #### [facility] [address] [place] [address] Epithelial cells.squamous Auto (Urine sed) [#/Area] 0-2 Invalid Interpretation Code [facility] Comment on above: Performed By: #### 4 [id number] #### [facility] [address] [place] [address] Glucose Ql (U) Negative Normal Negative [facility] Comment on above: Performed By: #### 4 [id number] #### [facility] [address] [place] [address] Hemoglobin Auto test strip (U) [Mass/Vol] 1+ Abnormal Negative [facility] Comment on above: Performed By: #### 4 [id number] #### [facility] [address] [place] [address] Ketones Auto test strip Ql (U) Negative Normal Negative [facility] Comment on above: Performed By: #### 4 [id number] #### [facility] [address] [place] [address] Leukocyte esterase Auto test strip Ql (U) 250 Katrina/uL Abnormal Negative [facility] Comment on above: Performed By: #### 4 [id number] #### [facility] [address] [place] [address] Mucus Auto Ql (U) Trace Normal Negative [facility] Comment on above: Performed By: #### 4 [id number] #### [facility] [address] [place] [address] Nitrite Auto test strip Ql (U) Negative Normal Negative [facility] Comment on above: Performed By: #### 4 [id number] #### [facility] [address] [place] [address] pH (U) 6.0 [pH] Invalid Interpretation Code 5.0-9.0 [facility] Comment on above: Performed By: #### 4 [id number] #### [facility] [address] [place] [address] Protein Ql (U) Negative Normal Negative [facility] Comment on above: Performed By: #### 4 [id number] #### [facility] [address] [place] [address] RBC Ql (U) 4-20 Abnormal 0-3 [facility] Comment on above: Performed By: #### 4 [id number] #### [facility] [address] [place] [address] Specific gravity (U) [Rel density] 1.022 Invalid Interpretation Code 1.005-1.030 [facility] Comment on above: Performed By: #### 4 [id number] #### [facility] [address] [place] [address] Urobilinogen (U) [Mass/Vol] Negative Normal Negative [facility] [facility] Comment on above: Performed By: #### [id number] #### [facility] [address] [place] [address] WBC Auto (Urine sed) [#/Area] 6-15 Abnormal 0-5 [facility] Comment on above: Performed By: #### [id number] #### [facility] [address] [place] [address] Type of Urine collection method Clean Catch Normal [facility] Comment on above: Performed By: #### [id number] #### [facility] [address] [place] [address] URINALYSISOrdered By: Amarjit Dick on 01-24-2024 Bilirubin Ql (U) Negative Normal Negativemg/ d L [facility] UA Auto SS Clarity (U) Clear (01/24/24 4:18 AM) Normal Clear [facility] UA Auto SS Color (U) Light-Yellow 1 (01/24/24 4:18 AM) Normal Yellow [facility] UA Auto SS Comment on above: Interpretive Data: M icroscopic readings are only performed on those samples that meet specific criteria set forth by [facility]. Epithelial cells.squamous Auto (Urine sed) [#/Area] 0-2 graded/HPF Invalid Interpretation Code [facility] UA Auto SS Glucose Ql (U) Negative Normal Negativemg/d L [facility] UA Auto SS Hemoglobin Auto test strip (U) [Mass/Vol] 1+ *ABN* (01/24/24 4:18 AM) Invalid Interpretation Code Negative [facility] UA Auto SS Ketones Auto test strip Ql (U) Negative Normal Negativemg/d L [facility] UA Auto SS Leukocyte esterase Auto test strip Ql (U) 250 Katrina/uL *ABN* (01/24/24 4:18 AM) Invalid Interpretation Code Negative [facility] UA Auto SS Mucus Auto Ql (U) Trace Normal Negative [facility] UA Auto SS Nitrite Auto test strip Ql (U) Negative Normal Negativemg/d L [facility] UA Auto SS pH (U) 6.0 *NA* (01/24/24 4:18 AM) Invalid Interpretation Code 5.0 - 9.0 [facility] UA Auto SS Protein Ql (U) Negative Normal Negativemg/d L [facility] UA Auto SS RBC Ql (U) 4-20 graded/HPF Invalid Interpretation Code 0-3graded/HP F [facility] UA Auto SS Specific gravity (U) [Rel density] 1.022 *NA* (01/24/24 4:18 AM) Invalid Interpretation Code 1.005 - 1.030 [facility] UA Auto SS Urobilinogen (U) [Mass/Vol] Negative Normal Negativemg/d L [facility] UA Auto SS WBC Auto (Urine sed) [#/Area] 6-15 *ABN* (01/24/24 4:18 AM) Invalid Interpretation Code 0-5 [facility] UA Auto SS URINALYSISOrdered By: Rachel Charles on 01-24-2024 UA Spec Desc Clean Catch (01/24/24 4:18 AM) Normal [facility] UA Auto SS eGFRon 01-24-2024 eGFR 61 mL/min/1.73 m2 Normal >=59 [facility] Comment on above: Order Comment: Order added by Discern Expert. Performed By: #### 1 [id number] #### [facility] [address] [place] [address] CT Abdomen/Pelvis w/ Contras ton 07-30-2023 CT Abdomen/Pelvis w/ Contrast Exam Date/Time: 07/30/2023 11:06 EST Reason for Exam: R10.31 Report IMPRESSION: CHOLECYSTECTOMY. HIATAL HERNIA REPAIR. 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 CT OF THE ABDOMEN AND PELVIS WITH INTRAVENOUS CONTRAST MEDIUM. History: R10.31. Right low back and right flank pain for 2 weeks. No known recent injury. Technical Factors: CT imaging of the abdomen and pelvis were obtained and formatted as 5 mm contiguous axial images from the domes of the diaphragm to the symphysis pubis. Sagittal and coronal reconstructions were also obtained. Oral contrast medium: Barium sulfate, 900 mL. Intravenous contrast medium: Isovue-300, 100 mL. Comparison: CT abdomen pelvis, October 28, 2017 Findings: Lungs: Calcified granulomas left lung base. Liver: Normal in size, shape, and attenuation. Bile Ducts: Normal in caliber. Gallbladder: Surgically absent. Pancreas: Normal without masses, cysts, ductal dilatation or calcification. Spleen: Normal in size without masses. Punctate calcification spleen. No splenules. Kidneys: Normal in size and enhancement. Prominent right renal collecting system with mild caliectasis, to level of right ureteral pelvic junction unchanged. No calculi bilaterally. No left hydronephrosis. Multiple cortical cyst, right kidney, largest measuring 1 cm, unchanged. Exophytic left upper pole cortical cyst measuring 2.5 cm, unchanged. Adrenals: Normal. Stomach: Thickening gastroesophageal junction and lesser curvature secondary to interval hiatal hernia repair. Report Small bowel: Normal in caliber. Appendix: Not visualized. Colon: Normal in caliber. Peritoneum: No ascites, free air, or fluid collections. Vessels: Aorta normal in course and caliber. Portal vein, splenic vein, superior mesenteric vein are patent. Lymph nodes: Retroperitoneal: No enlarged retroperitoneal lymph nodes. Mesenteric: No enlarged mesenteric lymph nodes. Pelvic: No enlarged pelvic lymph nodes. Ureters: Normal in course and caliber. No calcifications. Bladder: No wall thickening. Reproductive organs: No pelvic masses. Abdominal Wall: 7 mm fat-containing periumbilical anterior abdominal wall defect. No diastasis of rectus musculature. No edema or masses. Bones: No bone lesions. No degenerative changes. No post operative changes. All CT scans at this facility use dose modulation, iterative reconstruction, and/or weight based dosing when appropriate to reduce radiation dose to as low as reasonably achievable. Ordering Provider: , FINAL REPORT Dictated: 07/30/2023 12:30 pm Akin Ambrocio MD Signed (Electronic Signature): 07/30/2023 12:30 pm Signed by: Akin Ambrocio MD Transcribed by: TYLER Technologist: DPR Technical Comments GFR (mL/min/1/73m2) >60 Contrast: Isovue 300 Contrast amount in ml's: 100 Oral contrast amount in ml's: 900 Normal [facility] Consent for Treatmenton 07-16 Consent for Treatment [id number] #1.00TIFF [facility] JENNIFER MEREDITH Maurilio ([id number]) 1955 F Date Time Provider Department 07/16/23 ROSALBA RACHEL [facility] During your visit today, we recorded the following information about you: Barbra Carrizales 07/16/2023 8:47 AM Signed Outside labs received and scanned on est patient. Barbra Carrizales 07/30/2023 3:[address] scan for review in scanned documents Allergies As of Date: 07/16/2023 Noted Allergy Reaction SULFA (SULFONAMIDE ANTIBIOTICS) 04/30/2017 4 - Hives Date Reviewed: 07/14/2023 Reviewed by: Rosalba Rachel DO - Fully Assessed Reason for Visit: Outside Labs Results [437] Prescriptions as of 09/29/2023 - simvastatin (ZOCOR) 10 mg tablet Take 10 mg by mouth daily at bedtime. - tenapanor (IBSRELA) 50 mg tablet Take 1 tablet (50 mg) by mouth two times a day. - lubiprostone (AMITIZA) 24 mcg capsule Take 1 capsule by mouth twice daily with meals. Patient will be renewing enrollment in the patient assistance program. - prucalopride 2 mg tablet (MOTEGRITY) Take 1 tablet (2 mg) by mouth once daily. - acetaminophen (TYLENOL) 500 mg tablet Take 2 tablets by mouth every 6 hours. - multivitamin tablet Take 1 tablet by mouth once daily. 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] 07/21/2017 Non morbid obesity [E66.9] 07/27/2017 Epigastric pain [R10.13] 08/28/2017 S/P repair of paraesophageal hernia [Z98.890, Z*08/28/2017 Gastroparesis [K31.84] 09/09/2018 Encounter Status:Closed by BARBRA CARRIZALES on 09/29/23 Normal [facility] CHEMISTRYOrdered By: Nellie resendiz on 07-15-2023 Creatinine [Mass/Vol] 0.8 mg/dL Normal 0.5 - 1.3 mg/dL Remisol Chem eGFR 80 mL/min/1.73 m2 Normal >=59mL/min /1 .73 m2 Remisol Chem Consent for Treatmenton 06-17 Consent for Treatment [id number] #1.00TIFF Normal [facility] Creatinineon 07-15-2023 Creatinine [Mass/Vol] 0.8 mg/dL Normal 0.5-1.3 [facility] Comment on above: Performed By: #### 2 [id number] #### [facility] [address] [place] [address] Physician Orderon 07-15-2023 Physician Order [id number]#1.00TIFF Normal [facility] eGFRon 07-15-2023 eGFR 80 mL/min/1.73 m2 Normal >=59 [facility] Comment on above: Order Comment: Order added by Discern Expert. Performed By: #### 2 [id number] #### [facility] [address] [place] [address] CNOVon 07-14-2023 CNOV Office Visit (GASTSP) JENNIFER MEREDITH ([id number]) 1955 F Date Time Provider Department 07/14/23 9:30 AM ROSALBA RACHEL [facility] During your visit today, we recorded the following information about you: Pulse Respiration Blood pressure Weight 84/minute 17/minute 116/79 80.8 kg Height 1.6 m Rosalba Rachel, DO 07/14/2023 9:47 AM Signed FOLLOW UP VISIT CHIEF COMPLAINT Patient presents with: Follow Up: RLQ pain Ms. Meredith is here today for follow-up of: constipation abdominal pain. HPI I saw this 67y/o in f/u for her gi issues. She had the sudden onset of R lateral sharp pain. No hx of kidney stones and no changes in urination. The ibsrela is working for the bowels. Current Outpatient Medications Medication Sig Dispense Refill simvastatin (ZOCOR) 10 mg tablet Take 10 mg by mouth daily at bedtime. tenapanor (IBSRELA) 50 mg tablet Take 1 tablet (50 mg) by mouth twice daily. 60 tablet 5 acetaminophen (TYLENOL) 500 mg tablet Take 2 tablets by mouth every 6 hours. multivitamin tablet Take 1 tablet by mouth once daily. lubiprostone (AMITIZA) 24 mcg capsule Take 1 capsule by mouth twice daily with meals. Patient will be renewing enrollment in the patient assistance program. 180 capsule 3 prucalopride 2 mg tablet (MOTEGRITY) Take 1 tablet (2 mg) by mouth once daily. 30 tablet 6 No current facility-administere d medications for this visit. ALLERGIES Allergen Reactions Sulfa (Sulfonamide * Hives Social History Tobacco Use Smoking status: Never Smokeless tobacco: Never Substance Use Topics Alcohol use: No Drug use: No Comment: denies tx for drug/alcohol abuse in the past. Medical History: No changes since last visit. REVIEW OF SYSTEMS: GENERAL: weight stable, no fevers. 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 Reviewed with patient during visit today. PHYSICAL EXAMINATION: BP 116/79 Pulse 84 Resp 17 Ht 5' 3 (1.60m) Wt 178 lb 2.1 oz (80.8kg) SpO2 97% BMI 31.56 kg/(m2). GENERAL APPEARANCE: Well developed and well nourished. SKIN: Skin color, texture, turgor normal. No rashes or lesions. EYES: Conjunctiva normal without icterus. OROPHARYNX: lips, mucosa, and tongue normal, teeth and gums normal NECK: Supple, full range of motion, no lymphadenopathy, normal thyroid, no carotid bruits and no JVD LUNGS: Normal breath sounds, Clear to auscultation, No wheezes, No crackles. HEART:Normal PMI, Regular rate and rhythm, Normal heart sounds, S1 and S2 and No murmurs. NEURO: Alert and oriented in no acute distress. ABDOMEN: Normal bowel sounds, abdomen flat with no distention, Soft, tender r lateral just off iliac crest, no hepatomegaly. no palpable masses, no abdominal bruits, no rebound and no rigidity. EXTREMITIES:Extremit ies normal, No deformities, No skin discoloration, No edema . Assessment Encounter Diagnosis ICD-10-CM 1. Right lower quadrant abdominal pain R10.31 CT ABD/PEL W IVCON CREATININE BLD 2. Irritable bowel syndrome with constipation K58.1 tenapanor (IBSRELA) 50 mg tablet Rosalba Rachel DO 07/14/2023 Allergies As of Date: 07/14/2023 Noted Allergy Reaction SULFA (SULFONAMIDE ANTIBIOTICS) 04/30/2017 4 - Hives Date Reviewed: 07/14/2023 Reviewed by: Rosalba Rachel DO - Fully Assessed Reason for Visit: Follow Up [171] Cmt: RLQ pain Primary Visit Diagnosis:Right lower quadrant abdominal pain [R10.31] Other Visit Diagnosis:Irritable bowel syndrome with constipation [K58.1] Order(s):tenapanor (IBSRELA) 50 mg tabletTake 1 tablet (50 mg) by mouth two times a day.Disp: 60 tabletRfl: 5 CT ABD/PEL W IVCON [[id number]] Order #: [id number] FUTURE iv contrast (will be provided with radiology test)CT ABD/PEL -Inject, intravenously, once for 1 dose.No IV access, insert saline lock prior to the beginning of sedation, infusion, injection of imaging exam. Discontinue saline lock post exam. If Pt. has a central line or IVAD, may access for administration according to line specific nursing protocol. Once exam is complete flush line and de-access according to line specific nursing protocol in the CT contrast administration guidelines link.Disp: 1 EachRfl: 0 enteric contrast (will be provided with radiology test)For CT ABD/PEL W IVCON Routine order Administer, As Directed One Time Only, via Oral, Rectal, both Oral and Rectal, Enteric Tube, Stoma or Indwelling Catheter, Enteric Contrast as designated per enteric contrast guidelinesDisp: 1 EachRfl: 0 CREATININE BLD [SQCRET] Order #: [id number] FUTURE Prescriptions as of 07/14/2023 - simvastatin (ZOCOR) 10 mg tablet Take 10 mg by mouth daily at bedtime. - tenapanor (IBSRELA) 50 mg tablet Take 1 tablet (50 mg) by mouth two times a day. - iv contrast (will be provided with radiology test) CT ABD (more content not included)... Normal [facility] Physician Orderon 07-14-2023 Physician Order [id number] #1.00TIFF Normal [facility] 05-27-2023 [facility] Telephone (GASTSP) JENNIFER MEREDITH ([id number]) 1955 F Date Time Provider Department 05/27/23 ROSALBA RACHEL [facility] During your visit today, we recorded the following information about you: Yared Mckeon MA 05/27/2023 3:42 PM Signed Called patient. She is no longer on amitiza and does not need to renew the patient assistance program She is on Ibsrela Allergies As of Date: 05/27/2023 Noted Allergy Reaction SULFA (SULFONAMIDE ANTIBIOTICS) 04/30/2017 4 - Hives Date Reviewed: 06/24/2022 Reviewed by: Rosalba Rachel DO - Fully Assessed Reason for Visit: Patient Update [1234] Cmt: Patient trust manager assistant update Prescriptions as of 05/27/2023 - tenapanor (IBSRELA) 50 mg tablet Take 1 tablet (50 mg) by mouth twice daily. - lubiprostone (AMITIZA) 24 mcg capsule Take 1 capsule by mouth twice daily with meals. Patient will be renewing enrollment in the patient assistance program. - prucalopride 2 mg tablet (MOTEGRITY) Take 1 tablet (2 mg) by mouth once daily. - acetaminophen (TYLENOL) 500 mg tablet Take 2 tablets by mouth every 6 hours. - multivitamin tablet Take 1 tablet by mouth once daily. Problem List As Of Date 05/27/2023 Noted Resolved Paraesophageal hernia [K44.9] 07/21/2017 Non morbid obesity [E66.9] 07/27/2017 Epigastric pain [R10.13] 08/28/2017 S/P repair of paraesophageal hernia [Z98.890, Z*08/28/2017 Gastroparesis [K31.84] 09/09/2018 Encounter Status:Closed by YARED MKCEON on 05/27/23 Normal [facility] CHEMISTRYOrdered By: SYSTEM SYSTEM on 12-12-2021 Albumin [Mass/Vol] 3.7 g/dL Normal 3.3 - 5.0 gm/dL [facility] Remisol Albumin/Globulin [Mass ratio] 1.2 {ratio} Normal 1.1 - 2.2 [facility] Remisol ALP [Catalytic activity/Vol] 89 [iU]/d Normal 21 - 98 Int._Unit/L [facility] Remisol ALT No additional P-5'-P [Catalytic activity/Vol] 17 [iU]/d Normal 6 - 46 Int._Unit/L [facility] Remisol Anion gap [Moles/Vol] 12 mmol/L Normal 6 - 16 mEq/L F [facility] Remisol AST [Catalytic activity/Vol] 13 [iU]/d Normal 5 - 43 Int._Unit/L [facility] Remisol Bilirubin [Mass/Vol] 1.5 mg/dL High 0.0 - 1 .1 mg/dL [facility] Remisol Calcium [Mass/Vol] 9.2 mg/dL Normal 8.9 - 11. 1 mg/dL [facility] Remisol Chloride [Moles/Vol] 105 mmol/L Normal 101 - 1 11 mmol/L [facility] Remisol Cholesterol [Mass/Vol] 235 mg/dL High 120 - 200 mg/dL [facility] Remisol Cholesterol in HDL [Mass/Vol] 68 mg/dL Invalid Interpretation Code [facility] Remisol Cholesterol in LDL [Mass/Vol] 150 mg/dL High <=129mg/dL [facility] Remisol Cholesterol in VLDL [Mass/Vol] 17 mg/dL Normal 7 - 40 mg/dL [facility] Remisol CO2 [Moles/Vol] 27 mmol/L Normal 21 - 31 mmol/L [facility] Remisol Creatinine [Mass/Vol] 0.9 mg/dL Normal 0.5 - 1.3 mg/dL [facility] Remisol GFR/1.73 sq M.predicted among blacks MDRD (S/P/Bld) [Vol rate/Area] mL/min/1.73 m2 Normal >=59mL/min/1 .73 m2 [facility] Chem S GFR/1.73 sq M.predicted among non-blacks MDRD (S/P/Bld) [Vol rate/Area] mL/min/1.73 m2 Normal >=59mL/min/1 .73 m2 FT Chem S Globulin (S) [Mass/Vol] 3.0 g/dL Normal 1.4 - 4.0 gm/dL [facility] Remisol Glucose [Mass/Vol] 102 mg/dL Normal 55 - 199 mg/dL [facility] Remisol Potassium [Moles/Vol] 4.5 mmol/L Normal 3.5 - 5.3 mmol/L [facility] Remisol Protein [Mass/Vol] 6.7 g/dL Normal 6.0 - 7.8 gm/dL [facility] Remisol Sodium [Moles/Vol] 139 mmol/L Normal 135 - 145 mmol/L [facility] Remisol Triglyceride [Mass/Vol] 85 mg/dL Normal <=149mg/dL [facility] Remisol TSH Qn 1.39 m[IU]/L Normal 0.34 - 5.60 mcIU/mL [facility] Remisol Urea nitrogen [Mass/Vol] 11 mg/dL Normal 5 - 21 mg/dL [facility] Remisol Urea nitrogen/Creatinine [Mass ratio] 12 mg/mg Normal 10 - 20 [facility] Remisol HEMATOLOGYOrdered By: SYSTEM SYSTEM on 12-12-2021 Basophils/100 WBC (Bld) 1.4 % Normal 0.0 - 2.0 % [facility] HemeAutoSS Basophils/Leukocytes Auto (Bld) [Pure # fraction] 0.1 E9/L Normal 0.0 - 0.2 E9/L [facility] HemeAutoSS Eosinophils/100 WBC (Bld) 2.3 % Normal 0.0 - 8.0 % [facility] HemeAutoSS Eosinophils/Leukocyte s Auto (Bld) [Pure # fraction] 0.1 E9/L Normal 0.0 - 0.5 E9/L [facility] HemeAutoSS Lymphocytes/100 WBC (Bld) 41.2 % Normal 14.0 - 50.0 % [facility] HemeAutoSS Lymphocytes/Leukocyte s Auto (Bld) [Pure # fraction] 1.9 E9/L Normal 1.0 - 4.0 E9/L [facility] HemeAutoSS Monocytes/100 WBC (Bld) 8.2 % Normal 4.0 - 14.0 % [facility] HemeAutoSS Monocytes/Leukocytes Auto (Bld) [Pure # fraction] 0.4 E9/L Normal 0.2 - 1.0 E9/L [facility] HemeAutoSS Neutrophils/100 WBC (Bld) 46.9 % Normal 36.0 - 75.0 % [facility] HemeAutoSS Neutrophils/Leukocyte s Auto (Bld) [Pure # fraction] 2.2 E9/L Normal 2.0 - 7.5 E9/L [facility] HemeAutoSS HEMATOLOGYOrdered By: Ana levy on 12-12-2021 Erythrocyte distribution width (RBC) [Ratio] 13.3 % Normal 10.9 - 14.2 % [facility] HemeAutoSS Hematocrit (Bld) [Volume fraction] 45.5 % Normal 34.0 - 46.0 % [facility] HemeAutoSS Hemoglobin (Bld) [Mass/Vol] 15.0 g/dL Normal 12.0 - 16.0 gm/dL [facility] HemeAutoSS MCH (RBC) [Entitic mass] 28.5 pg Normal 27.0 - 34.0 pg [facility] HemeAutoSS MCHC (RBC) [Mass/Vol] 33.1 g/dL Normal 31.4 - 36.0 gm/dL [facility] HemeAutoSS MCV (RBC) [Entitic vol] 86.2 fL Normal 80.0 - 100.0 fL [facility] HemeAutoSS Platelet mean volume (Bld) [Entitic vol] 8.6 fL Normal 6.4 - 10.8 fL [facility] HemeAutoSS Platelets (Bld) [#/Vol] 304.0 E9/L Normal 150.0 - 500.0 E9/L [facility] HemeAutoSS RBC (Bld) [#/Vol] 5.3 E12/L Normal 4.3 - 5.9 E12/L [facility] HemeAutoSS WBC corrected for nucl RBC Auto (Bld) [#/Vol] 4.7 E9/L Normal 4.0 - 11.0 E9/L [facility] HemeAutoSS XR ABDOMEN 1V SUPINEon 02-24 XR ABDOMEN 1V SUPINE * * *Final Report* * * DATE OF EXAM: Feb 24 2019 3:38PM SPX [id number] - XR ABDOMEN 1V SUPINE / PROCEDURE REASON: Chronic idiopathic constipation * * * * Physician Interpretation * * * * RESULT: EXAM:XR ABDOMEN 1V SUPINE HISTORY: Chronic idiopathic constipation COMPARISON:None IMPRESSION:Bowel gas pattern is nonspecific and nonobstructive. There is moderate amount of stool throughout the colon. Cholecystectomy clips are in place. There are degenerative changes in the lower lumbar spine, bilateral sacroiliac and hip joints. Lung bases are clear. Transcribed Using Voice Recognition Transcribe Date/Time: Feb 24 2019 3:57P Dictated by: JOQAUIN KELLY MD This examination was interpreted and the report reviewed and electronically signed by: JOAQUIN KELLY MD on Feb 24 2019 3:58PM EST [id number] [facility] NM GASTRIC EMPTYING SOLIDon 01-31-2019 NM GASTRIC EMPTYING SOLID * * *Final Report* * * DATE OF EXAM: Jan 31 2019 12:41PM SPN [id number] - NM GASTRIC EMPTYING SOLID / PROCEDURE REASON: Gastroparesis * * * * Physician Interpretation * * * * RESULT: SOLID MEAL GASTRIC EMPTYING STUDY: CLINICAL HISTORY: Early satiety To assess for abnormal gastric emptying of a solid meal. TECHNIQUE: 1 mCi Tc-99m sulfur colloid was given orally in a meal consisting of 4 oz Egg Beaters, 2 pieces toast, Jelly and 8 oz water, consumed over 5 to 10 minutes. 1-minute posterior and anterior spot images of the stomach region at times 0, 1, 2, and 4 hours RESULT: Solid study demonstrates 56% retention at 1hr, 28% retention at 2hr, and 13% retention at 4hr (normal emptying is 37-90% retention at 1hr, 30-60% retention at 2hr, and 0-10% retention at 4hr). There is no evidence of accelerated emptying of gastric contents, with 56% retention at 1hr (rapid emptying is <30% retention at 1hr). IMPRESSION: EVIDENCE OF DELAYED RATE OF GASTRIC EMPTYING OF SOLID MEAL. ABNORMAL STUDY: 11-20% RETENTION AT 4 HOURS IS CONSISTENT WITH MILD GASTROPARESIS. Transcribed Using Voice Recognition Transcribe Date/Time: Jan 31 2019 12:46P Dictated by: AYAN GALLEGOS MD This examination was interpreted and the report reviewed and electronically signed by: AYAN GALLEGOS MD on Jan 31 2019 12:49PM EST [id number] [facility] PROGRESSon 01-31-2019 PROGRESS HNO ID: [id number] Author: Kelley Mcclain [facility] Service: Nuclear Medicine Author Type: ? Type: Progress Notes Filed: 01/31/2019 12:39 PM Note Text: RADIOLOGY SERVICE PROGRESS NOTE SERVICE DATE: 01/31/2019 SERVICE TIME: 12:39 PM PATIENT IDENTITY VERIFICATION COMPLETED USING TWO (2) METHODS: Patient confirmed name and Date of verbally. PATIENT GENDER DATA: .female : No ALLERGIES: Reviewed and unchanged MEDICATIONS REVIEWED: No PATIENT RELEVANT IMPLANT DATA REVIEWED: Not Applicable CREATININE: Creatinine Date Value Ref Range Status 10/27/2018 0.93 0.58 - 0.96 mg/dL Final 08/11/2017 0.66 (L) 0.70 - 1.40 mg/dL Final eGFR-All Other Races Date Value Ref Range Status 08/11/2017 >60 >60 . Final eGFR- Date Value Ref Range Status 08/11/2017 >60 >60 Final P.O.C.T. RESULTS: N/A January 31, [address] PERFORMED: No IV SITE: NM only - not applicable, oral or physician administered agents given to patient POST EXAM PIV STATUS: Not applicable PROCEDURE TYPE: NM GET: 1.0 mCi Tc99m SULFUR COLLOID was administered orally via 4 ounces of Egg Beaters,2 pieces of toast, 1 ounce of jelly with 8 ounces of water orally ADMINISTRATION TIME: 0830 PATIENT DISCHARGED TO: Ambulatory patient, left [place] department area. A Diagnostic radioactive procedure has taken place, with no further precautions necessary other than routine body substance precautions. More information regarding radiation safety can be found using this link: [email or web address] SIGNATURE: Kelley Miles Jose Armandodemetria [facility] PATIENT NAME: Jennifer Meredith DATE: January 31, 2019 TIME: 12:39 PM PAGER/CONTACT #: Normal [facility] Basic Metabolic Panlon 10-27 Anion gap [Moles/Vol] 10 mmol/L Normal 0-[address] [facility] Calcium [Mass/Vol] 9.0 mg/dL Normal 8.6-10.0 [facility] Chloride [Moles/Vol] 104 mmol/L Normal 97-105 [facility] CO2 [Moles/Vol] 28 mmol/L Normal 22-30 [facility] Creatinine [Mass/Vol] 0.93 mg/dL Normal 0.58-0.[address] [facility] Glucose [Mass/Vol] 97 mg/dL Normal 74-99 [facility] Potassium [Moles/Vol] 4.5 mmol/L Normal 3.7-5.[address] [facility] Sodium [Moles/Vol] 142 mmol/L Normal 136-144 [facility] Urea nitrogen [Mass/Vol] 13 mg/dL Normal 7-21 [facility] CBC and Differentialon 10-27 Abs Baso 0.04 k/uL Normal <0.11 [facility] Abs Wolfe 0.56 k/uL Normal <0.87 [facility] Abs Neut 4.71 k/uL Normal 1.45-7.50 [facility] Absolute nRBC <0.01 Normal <0.01 [facility] Basophils/100 WBC (Bld) 0.5 % Normal [facility] DTYPE Auto Diff Normal [facility] Eosinophils (Bld) [#/Vol] 0.06 10*3/uL Normal <0.46 [facility] Eosinophils/100 WBC (Bld) 0.7 % Normal [facility] Erythrocyte distribution width (RBC) [Ratio] 13.2 % Normal 11.5-15.0 [facility] Hematocrit (Bld) [Volume fraction] 40.4 % Normal 36.0-46.0 [facility] Hemoglobin (Bld) [Mass/Vol] 13.6 g/dL Normal 11.5-15.5 [facility] Lymphocytes (Bld) [#/Vol] 2.70 10*3/uL Normal 1.00-4.00 [facility] Lymphocytes/100 WBC (Bld) 33.4 % Normal [facility] MCH (RBC) [Entitic mass] 29.8 pG Normal 26.0-34.0 [facility] MCHC (RBC) [Mass/Vol] 33.7 g/dL Normal 30.5-36.[address] [facility] MCV (RBC) [Entitic vol] 88.6 fL Normal 80.0-100.0 [facility] Monocytes/100 WBC (Bld) 6.9 % Normal [facility] Neutrophils/100 WBC (Bld) 58.5 % Normal [facility] NRBCs 0.0 /100 WBC Normal 0 [facility] Platelet mean volume (Bld) [Entitic vol] 10.2 fL Normal 9.0-12.7 [facility] Platelets (Bld) [#/Vol] 276 10*3/uL Normal 150-400 [facility] RBC (Bld) [#/Vol] 4.56 10*6/uL Normal 3.90-5.20 [facility] WBC (Bld) [#/Vol] 8.09 10*3/uL Normal 3.70-11.00 [facility] NURSING PROGon 10-27-2018 NURSING PROG HNO ID: [id number] Author: Deb (Rn) ROXANNA Alas Service: ? Author Type: Registered Nurse Type: Nursing Progress Note Filed: 10/27/2018 2:38 PM Note Text: Nursing Progress Note Patient Name: Jennifer Meredith Patient Location: /-* Daily Note: Resting in bed. Afebrile, not in acute distress.No complaints of discomfort. Full liquids taken. Tolerated well. 1305 Seen and examined by Dr. Mclaughlin Lunch taken. Tolerated well. For discharge to home today.Checked with Dr Thomas Mclaughlin if can drive herself home. Stated its ok if no dizziness while ambulating. 13[address]. Gait steady. No complaints of dizziness. Dr. Mclaughlin aware. 1400 Discharge instructions given. Verbalized understanding. 1432 Discharged home in stable condition. This note was completed by: Deb Alas RN [facility] PLAN OF CAREon 10-27-2018 PLAN OF CARE HNO ID: [id number] Author: Matthew Grider ([employer]) Service: Pharmacy Author Type: ? Type: Plan of Care Filed: 10/27/2018 3:25 PM Note Text: PHARMACY BEDSIDE DELIVERY SERVICE Patient Name: Jennifer Meredith The marked outpatient medications were Filled at: [facility] and delivered to the patient's bedside to patient Medication List START taking these medications pantoprazole DR 40 mg tablet Commonly known as: PROTONIX Take 1 tablet by mouth twice daily. x sucralfate 1 gram tablet Commonly known as: CARAFATE Take 1 tablet by mouth twice daily. x CONTINUE taking these medications acetaminophen 500 mg tablet Commonly known as: TYLENOL Take 2 tablets by mouth every 6 hours. multivitamin tablet Take 1 tablet by mouth once daily. You might also be taking other medications not listed above. If you have questions about any of your other medications, talk to the person who prescribed them or your Primary Care Provider. Matthew Grider ([employer]) PAGER: [phone] October 27, 2018 3:24 PM [facility] PLAN OF CARE HNO ID: [id number] Author: Matthew PittsCirc[employer]) Service: Pharmacy Author Type: ? Type: Plan of Care Filed: 10/27/2018 1:59 PM Note Text: Pharmacy Discharge Medication Service: This patient has elected to receive their discharge prescriptions through the [facility] Bedside Prescription Delivery program. The prescriptions are currently being processed. A follow-up note will be entered once the prescriptions have been filled and delivered to the patient. Please contact me with any questions or updates to the patient's discharge medications. Matthew Grider ([employer]) DCT Contact Info: [phone] [facility] ANES Jose C 10-26-2018 ANES POST HNO ID: [id number] Author: Zackery Charles Service: Anesthesiology Author Type: Anesthesiologist Type: Anesthesia PostOp Filed: 10/26/2018 2:39 PM Note Text: POST ANESTHESIA EVALUATION NOTE SERVICE DATE: 10/26/2018 SERVICE TIME: 2:39 PM : 1955 Vitals: 10/26/18 0648 10/26/18 0852 10/26/18 1017 10/26/18 1033 Temp: 37.5 ?C (99.5 ?F) 36.3 ?C (97.3 ?F) 37.2 ?C (99 ?F) 37.2 ?C (99 ?F) 10/26/18 0935 10/26/18 0950 10/26/18 1017 10/26/18 1033 BP: 136/55 121/59 123/71 123/71 10/26/18 0935 10/26/18 0950 10/26/18 1017 10/26/18 1033 Pulse: 65 63 69 104 10/26/18 0920 10/26/18 0935 10/26/18 0950 10/26/18 1017 Resp: 16 16 16 16 10/26/18 0935 10/26/18 0950 10/26/18 1017 10/26/18 1033 SpO2: 100% 99% 99% 97% Validated Vital Signs: Yes POST ANES STATUS: No apparent anesthetic complications. The patient is appropriately hydrated with stable respiratory and cardiovascular status. Patient has safe and adequate airway control. The patient has appropriate pain relief and no significant post operative nausea or vomiting. The patient has achieved baseline mental status. Intra-Operative Events: No Significant Anesthesia Events Further assessment by Anesthesia Service: None Other Remarks: SIGNATURE: Zackery Charles DO PATIENT NAME: Jennifer Meredith DATE: October 26, 2018 TIME: 2:39 PM PAGER/CONTACT #: [facility] ANES PREOPon 10-26-2018 ANES PREOP HNO ID: [id number] Author: Zackery Charles Service: Anesthesiology Author Type: Anesthesiologist Type: Anesthesia PreOp Filed: 10/26/2018 7:31 AM Note Text: REGIONAL ANESTHESIOLOGY DAY OF SURGERY NOTE PATIENT NAME: Jennifer Meredith : 1955 Procedure(s) (LRB): EGD (N/A) ENDOSCOPIC PER-ORAL PYLOROMYOTOMY (N/A) Surgeon(s): Keanu Mclaughlin Estimated body mass index is 29.08 kg/m? as calculated from the following: Height as of 09/29/18: 157.5 cm (5' 2 ). Weight as of 09/29/18: 72.1 kg (159 lb). Most recent hematocrit and potassium results: Hematocrit 40.4 08/11/2017 Potassium 4.1 08/11/2017 63F here for POP d/t gastroparesis. PMHx: obese Vitals: 10/26/18 0648 BP: 138/66 Pulse: 72 Resp: 18 Temp: 37.5 ?C (99.5 ?F) TempSrc: Temporal SpO2: 100% ACTIVE PROBLEM LIST Paraesophageal Hernia Non Morbid Obesity Epigastric Pain S/P Repair of Paraesophageal Hernia Gastroparesis PAST MEDICAL HISTORY Diagnosis Date - Gastroparesis - Hiatal hernia 04/10/2017 EGD large hiatal hernia > 15cm with Dr. Tereso Holt - Measles - Non morbid obesity 07/27/2017 PAST SURGICAL HISTORY Procedure Laterality Date - APPENDECTOMY HX - CATARACT EXTRACTION HX Bilateral 03/2016 - CHOLECYSTECTOMY HX laparoscopic - COLONOSCOPY 04/10/2017 - EGD 04/10/2017 - HYSTERECTOMY HX - MENISCAL RT W/TIB PLATEAU Right 2016 - WILLIAM HX 07/2017 FAMILY HISTORY Adopted: Yes Social History: Social History Tobacco Use - Smoking status: Never Smoker - Smokeless tobacco: Never Used Substance Use Topics - Alcohol use: No - Drug use: No Comment: denies tx for drug/alcohol abuse in the past. No current facility-administere d medications on file prior to encounter. Current Outpatient Medications on File Prior to Encounter: acetaminophen (TYLENOL) 500 mg tablet Take 2 tablets by mouth every 6 hours. multivitamin tablet Take 1 tablet by mouth once daily. Current Facility-Administere d Medications: lactated ringers infusion 5-30 mL/hr INTRAVENOUS CONTINUOUS Melissa (Digital Field Service Technician) Nini Last Rate: 30 mL/hr at 10/26/18 0707 30 mL/hr at 10/26/18 07 ciprofloxacin 400 mg in D5W 200 mL (CIPRO) 400 mg INTRAVENOUS ONCE Melissa (Digital Field Service Technician) Nini Last Rate: 200 mL/hr at 10/26/18 0712 400 mg at 10/26/18 07 metroNIDAZOLE iv piggyback 500 mg in NaCl (iso-osmotic) 100 mL (FLAGYL) 500 mg INTRAVENOUS ONCE Melissa (Digital Field Service Technician) Nini Allergies: ALLERGIES Allergen Reactions - Sulfa (Sulfonamide * Hives Adequate NPO Status: Yes Anesthetic Risks, Benefits, Alternatives, Personnel and Consent Discussed: No: Consent by Surgical service, ICU or Primary service Patient agrees to proceed: Yes per patient or per patient's parent/guardian Previous Anesthesia: No history of adverse event Airway Assessment: MP 3; Neck ROM: Full ROM without neurologic symptoms; Airway Evaluation: Short Neck Symptoms of Sleep Apnea: likely Dentition: Teeth intact Poor dentition Additional Physical Exam: Lungs: Patient health status unchanged since recent history and physical. See history and physical for exam findings. Cardiac: Patient health status unchanged since recent history and physical. See history and physical for exam findings. Additional Pertinent Findings: N/A Blood Products: Not anticipated for this procedure Anesthetic Plan: MAC with general as back up Anesthetic Monitoring: Standard ASA Monitors Pain Management Plan: Parenteral or Oral ASA Class: 2 Other Medical Problems: None Chronic Beta Darlene medication administered within 24 hours: N/A I have interviewed and examined the patient. I have reviewed the medical record and/or the pre-anesthesia evaluation, pertinent labs, and test results. Significant changes in the patient's condition since the History and Physical, not otherwise documented in primary service progress notes: No This contains updated information obtained within 48 hours of Surgery/Procedure. SIGNATURE: Zackery Charles DO DATE: October 26, 2018 TIME: 7:30 AM Normal [facility] ECG COMPLETEon 10-26-2018 ECG COMPLETE NAME : JENNIFER MEREDITH PID : [id number] : 1955 Gender : Female Race : ORD : [id number] Procedure Date : Oct 26 2018 06:53:21 Edit Date : Oct 27 2018 20:08:52 Diagnosis:NORMAL SINUS RHYTHM POSSIBLE LATERAL INFARCT , AGE UNDETERMINED ABNORMAL ECG NO PREVIOUS ECGS AVAILABLE Confirmed by SHAVONNE SUE M.D. ([id number]) on 10/27/2018 8:08:45 PM Ventricular Rate : 65 BPM Atrial Rate : 65 BPM P-R Interval : 148 ms QRS Duration : 94 ms Q-T Interval : 422 ms QTC Calculation(Bezet) : 438 ms P Salome : 63 degrees R Salome : -5 degrees T Salome : 39 degrees Test Reason : Pre-OP Location : 2 : 2 SOP Overread By : SHAVONNE SUE M.D. Edited By : SHAVONNE SUE M.D. Referred By : , Acquired by : PANFILO FOSTER [facility] HISTORY PHYSICALon HISTORY PHYSICAL HNO ID: [id number] Author: Indra Lucero Service: General Surgery Author Type: Physician Circulation Worker Type: HANDP Filed: 10/26/2018 7:07 AM Note Text: UPDATED HISTORY AND PHYSICAL EXAMINATION SERVICE DATE: 10/26/2018 SERVICE TIME: 6:53 AM SERVICE: General Surgery Service of Dr. Mclaughlin PHYSICAL EXAM MUST BE COMPLETED ON ADMISSION The History and Physical (completed in the past 30 days) has been reviewed and the patient has been examined. The contents accurately reflect the patient's condition with the following additions or revisions since the HANDP was completed. Patient denies any changes to health since last examination. Denies any Chest Pain, SOB, headache, nausea, vomiting, fevers, chills, diarrhea, constipation, change in vision or hearing, numbness or tingling in the hands or feet. Planned procedure for today is EGD with per oral pyloroplasty. Medication reconciliation list reviewed in [facility]. Past medical history, past surgical history, social history and family history reviewed and updated in [facility]. ALLERGIES Allergen Reactions - Sulfa (Sulfonamide * Hives BP 138/66 Pulse 72 Temp 37.5 ?C (99.5 ?F) (Temporal) Resp 18 SpO2 100% Examination indicates no changes. On examination today: Lungs: Clear to auscultation bilaterally. Heart: RRR, Normal S1/S2, No murmurs, rubs, gallops or thrills appreciated. Abdomen: BS+ in all quadrants, abdomen is soft, non tender, and without guarding. Assessment: Gastroparesis Plan: EGD with per oral pyloroplasty This HANDP can be found in the Electronic Medical Record dated 09/29/2018 Amanda Garcia DREDGE MATE SIGNATURE: Indra Lucero II, PA-C PATIENT NAME: Jennifer Meredith DATE: October 26, 2018 TIME: 6:53 AM [facility] NURSING PROGon 10-26-2018 NURSING PROG HNO ID: [id number] Author: Annmarie PittsRn) ROXANNA Paris Service: ? Author Type: Registered Nurse Type: Nursing Progress Note Filed: 10/27/2018 6:12 AM Note Text: Nursing Progress Note Patient Name: Jennifer Meredith Patient Location: DC/ DC-* Daily Note: 1930 Assumed care of pt. Pt has no complaints at this time. 2138 Full assessment completed, see NPR. Medicated with tylenol per MAR for H/A. 0115 Call with vice president of advertising to notify of BP. No new orders. Pt asymptomatic. 0515 Pt sleeping at this time. 0610 Pt educated on incentive spirometer. She has no complaints this morning. This note was completed by: ANNMARIE Paris RN [facility] NURSING PROG HNO ID: [id number] Author: Deb PittsRn) ROXANNA Alas Service: ? Author Type: Registered Nurse Type: Nursing Progress Note Filed: 10/26/2018 8:15 PM Note Text: Nursing Progress Note Patient Name: Jennifer Meredith Patient Location: DC/ DC-* Daily Note: Received from PACU via cart at. Had underwent Pyomylotomy. Repoistioned in comfort. Oriented to room and surroundings. Assessment completed. See NPR. 1220 To radiology department via cart for Upper GI series. 1300 Returned to room at . Repositioned in comfort. 1420 Seen and examined by Dr. Mclaughlin. 1800 No complaints of discomfort. This note was completed by: Deb Alas RN [facility] NURSING PROG HNO ID: [id number] Author: Jory PittsRn) ROXANNA Hanley Service: Nursing Author Type: Registered Nurse Type: Nursing Progress Note Filed: 10/26/2018 7:08 AM Note Text: Nursing Progress Note Patient Name: Jennifer Meredith Patient [facility] 0700 Pre op ekg done at bedside, reviewed by vicente Britton to give preop dose of cipro. This note was completed by: Jory Hanley RN [facility] PT EDon 10-26-2018 PT ED HNO ID: [id number] Author: Jonelle Ramirez RN Service: Nursing Author Type: Registered Nurse Type: Patient Education Filed: 10/26/2018 9:00 AM Note Text: PATIENT EDUCATION TOPIC: PROCEDURE / SURGERY: Procedure/Surgery: POP PATIENT NAME: Jennifer Meredith PATIENT LOCATION: [facility] READINESS TO LEARN COGNITIVE ABILITY: Alert and oriented MOTIVATION TO LEARN: Eager FAMILY SUPPORT: None - Unavailable/disinter ested INSTRUCTION PROVIDED TO: Patient PATIENT LEARNS BEST BY: Verbal Instruction FACTORS AFFECTING LEARNING: None PHYSICAL LIMITATIONS AFFECTING LEARNING: None LEARNING RESPONSE DIAGNOSIS: ADULT: POP PATIENT/FAMILY RESPONSE: Verbalizes understanding of: POST-OPERATIVE INSTRUCTIONS-Correct actions to take to reduce postoperative complications METHOD OF INSTRUCTION: Verbal instruction FOLLOW-UP PLAN: Complete - No need for follow-up INSTRUCTIONAL AIDS USED: NA SUPPLEMENTAL MATERIAL PROVIDED TO PATIENT: None REFERRAL (RECOMMENDATION): None Electronically Signed By: Jonelle Ramirez RN [facility] PT ED HNO ID: [id number] Author: Jory Hanley RN Service: Nursing Author Type: Registered Nurse Type: Patient Education Filed: 10/26/2018 6:51 AM Note Text: PATIENT EDUCATION TOPIC: PROCEDURE / SURGERY: Pre-op Teaching: Logistics Protocols Complication Prevention PATIENT NAME: Jennifer Meredith PATIENT LOCATION: [facility] READINESS TO LEARN COGNITIVE ABILITY: Alert and oriented MOTIVATION TO LEARN: Eager FAMILY SUPPORT: Unable to assess - Family not present INSTRUCTION PROVIDED TO: Patient PATIENT LEARNS BEST BY: Verbal Instruction FACTORS AFFECTING LEARNING: None PHYSICAL LIMITATIONS AFFECTING LEARNING: None LEARNING RESPONSE DIAGNOSIS: ADULT: gastroparesis PATIENT/FAMILY RESPONSE: Verbalizes understanding of: PAIN MANAGEMENT-Effective strategies to manage pain in addition to pain medication PRE-OPERATIVE INSTRUCTIONS-Correct action to take to follow pre-operative instructions METHOD OF INSTRUCTION: Verbal instruction FOLLOW-UP PLAN: Patient instructed to call with any further issues INSTRUCTIONAL AIDS USED: NA SUPPLEMENTAL MATERIAL PROVIDED TO PATIENT: None REFERRAL (RECOMMENDATION): None Electronically Signed By: Jory Hanley RN [facility] XR UPPER GI SINGLE CONTRASTo n 10-26-2018 XR UPPER GI SINGLE CONTRAST * * *Final Report* * * DATE OF EXAM: Oct 26 2018 1:37PM SPX [id number] - XR UPPER GI SINGLE CONTRAST / PROCEDURE REASON: Gastroparesis * * * * Physician Interpretation * * * * RESULT: LIMITED UPPER GI Indication: Postop evaluation of per oral pyloromyotomy (POP), Comparison: None. Findings: KUB bony structures show degenerative change. Barium and left colon diverticulum. Gas pattern nonspecific. Fecal residue throughout the colon. Surgical clips right upper quadrant. Myotomy clips are quadrant. Nonspecific calcifications. Omnipaque 300 taken orally, Shows contrast flowing freely from the distal esophagus into the stomach, which shows areas of thickened mucosa. Contrast flows freely past the myotomy clips into the duodenum without evidence of extravasation IMPRESSION No evidence of post pyloromyotomy extravasation Mild distal esophageal dysmotility identified Left lung base shows atelectatic and nodular densities follow-up recommended Transcribed Using Voice Recognition Transcribe Date/Time: Oct 26 2018 1:39P Dictated by: EVENS JOHNSON DO This examination was interpreted and the report reviewed and electronically signed by: EVENS JOHNSON DO on Oct 26 2018 1:44PM EST [id number] [facility] PROGRESSon 10-25-2018 PROGRESS HNO ID: [id number] Author: Melissa Terrazas Service: General Surgery Author Type: Nurse Practitioner Type: Progress Notes Filed: 10/25/2018 9:17 AM Note Text: I have reviewed the patient's allergies and entered the orders requested by the procedural physician or per anesthesia guidelines. Melissa Terrazas APRN. CNP October 25, 2018 9:17 AM [facility] NURSING PROGon 10-06-2018 NURSING PROG HNO ID: [id number] Author: Etta Hodges RN Service: ? Author Type: Registered Nurse Type: Nursing Progress Note Filed: 10/06/2018 1:49 PM Note Text: PACC Nurse Progress Note History AND Physical: PACC Visit Date: 09/29/18 Original HANDP Date: N/A ED visit Date: N/A Outside HANDP Scanned Date: N/A Labs Within Last 6 Months: N/A Imaging Within Last 12 Months: N/A Cardiac Testing: N/A Last Menstrual Period: LMP Date: N/A Postmenopausal >1yr: Yes, S/P Hysterectomy: N/A BMI Percentile (PEDS): N/A Risk Assessment: N/A Anesthesia Review: N/A Narrative: N/A Pre-op Considerations: N/A Chart Check: COMPLETED Etta Hodges RN October 06, 2018 1:48 PM [facility] HOSPon 09-14-2018 HOSP Patient:Kavon Meredith MRN: Height:5' 2 (1.575 m) Weight:159 lb (72.122 kg) Outpatient Medications as of 10/26/18: acetaminophen (TYLENOL) 500 mg tablet multivitamin tablet Admission/Clinic Administered Medications as of 10/26/18: ciprofloxacin 400 mg in D5W 200 mL (CIPRO) Problem List: Paraesophageal hernia [K44.9] Non morbid obesity [E66.9] Epigastric pain [R10.13] S/P repair of paraesophageal hernia [Z98.890, Z87.19] Gastroparesis [K31.84] Allergies: Sulfa (Sulfonamide Antibiotics) Date Verified: 10/26/18 Lab Values No results within the last 30 days for the following basenames: K,HCT Progress Notes [facility] Nunu Henderson RN 10/07/2018 3:46 PM Signed patient called office and is unclear as to what diet she is on rafael operatively for POP reviewed pre op instructions of full liquid diet 3 days before scheduled procedure all questions answered satisfactorily Progress Notes ([facility]): Ly Herrera RN, RN 10/06/2018 2:45 PM Signed Patient was called to review instructions for upcoming POP/EGD with Dr. Mclaughlin on 10-26-18 Message left for patient to return call. Advised that a telephone call will be received one day prior to procedure to confirm time. Ly Herrera RN [facility] ALLIED HEALTHon 07-05-2018 ALLIED HEALTH HNO ID: [id number] Author: Lucia (Rt) Sharita Li Service: Radiology Author Type: Manager Financial Planning Type: Allied Health Filed: 07/05/2018 8:46 AM Note Text: Radiology Service Progress Note PATIENT NAME: Jennifer Meredith DATE OF SERVICE: July 05, 2018 TIME: 8:45 AM PATIENT IDENTITY VERIFICATION COMPLETED USING TWO (2) METHODS: Patient confirmed name verbally and ID band matches.. PATIENT GENDER DATA: Female. status: : No status: N/A PATIENT RELEVANT IMPLANT DATA REVIEWED: Not Applicable RADIOLOGY DEPARTMENT: General X-ray: Exam(s) Completed: GI/ Procedure(s): Upper GI with barium contrast PERIPHERAL IV DATA: Not applicable SIGNED BY: RT Coleen July 05, 2018 8:45 AM [facility] XR UPPER GI DOUBLE CONTRAST/ AIRon 07-05-2018 XR UPPER GI DOUBLE CONTRAST/AIR * * *Final Report* * * DATE OF EXAM: Jul 05 2018 8:45AM FVX [id number] - XR UPPER GI DOUBLE CONTRAST/AIR / PROCEDURE REASON: multiple diagnoses * * * * Physician Interpretation * * * * HISTORY: S/P repair of paraesophageal hernia S/P repair of paraesophageal hernia UPPER GI: TECHNIQUE: Fluoroscopic Radiation Summary: Plane A, Air Kerma: 177.1 mGy Plane B, Air Kerma: 0.0 mGy Dose Area Product (DAP): 0.0 mGy*cmS2 Fluoro time: 5:36 min:sec Total number of images and acquisition: 35 RESULT: The patient swallowed barium and effervescent without any difficult. No aspiration or penetration of the barium is noted. The caliber, course and mucosal pattern of the esophagus are within normal limits. No hiatal hernia is noted. Evidence of mild gastroesophageal reflux is demonstrated with change in patient's position. No esophageal stricture is noted. No esophageal dysmotility is identified. The stomach is well distended with barium and air . The mucosal pattern of the stomach show no significant abnormality. No evidence of gastritis, ulcer disease, or other significant abnormality is noted at the stomach. There is delayed excretion of the contrast from the gastric antral/pyloric area into the duodenal bulb and C-loop, approximately 15 minutes following the upper GI study. Evaluation of duodenal bulb and c-loop shows no evidence of ulcer disease or other significant abnormality. IMPRESSION: No hiatal hernia. Mild gastroesophageal reflux is demonstrated during the examination. Delayed gastric emptying. Further clinical correlation/evaluati on is recommended. Service Consultant: MARISOL Transcribe Date/Time: Jul 05 2018 1:46P Dictated by : MARILEE MEDLEY MD This examination was interpreted and the report reviewed and electronically signed by: MARILEE MEDLEY MD on Jul 05 2018 1:50PM EST [id number] Normal [facility] HISTORY PHYSICALon 8 HISTORY PHYSICAL HNO ID: [id number] Author: Angeles Valdez) David Service: General Surgery Author Type: Physician Type: HANDP Filed: 09/15/2017 9:37 AM Note Text: Assessment NEW CONSULT Chief Complaint: Chest pain HPI: Jennifer Meredith is a 61 year old female with chest pain PAST MEDICAL HISTORY: PAST MEDICAL HISTORY Diagnosis Date - Hiatal hernia 04/10/2017 EGD large hiatal hernia > 15cm with Dr. Tereso Holt - Measles - Non morbid obesity 07/27/2017 PAST SURGICAL HISTORY: PAST SURGICAL HISTORY Procedure Laterality Date - APPENDECTOMY HX - CATARACT EXTRACTION HX Bilateral 03/2016 - CHOLECYSTECTOMY HX laparoscopic - COLONOSCOPY 04/10/2017 - EGD 04/10/2017 - HYSTERECTOMY HX - MENISCAL RT W/TIB PLATEAU Right 2016 FAMILY HISTORY: FAMILY HISTORY Problem Relation Age of Onset - Adopted: Yes SOCIAL HISTORY: Social History Substance Use Topics - Smoking status: Never Smoker - Smokeless tobacco: Never Used - Alcohol use No COMPLETE REVIEW OF SYSTEMS Constitutional--Nega tive for fevers, chills, fatigue. No Unintentional weight loss Cardiovascular--Nega tive for orthopnea, PND, positive for intermittent lower extremity edema Gastrointestinal--Se e HPI Pulmonary--Negative for intermittent dyspnea cough or hemoptysis : No history of dysuria, frequency or incontinence A 10 point review of systems was otherwise negative PHYSICAL EXAMINATION: BP 129/70 Pulse 84 SpO2 99% General appearance: Well appearing, alert, in no acute distress, well-hydrated, well nourished. Psych: Appropriate affect, alert and oriented to person, place and time Skin: Skin color, texture, turgor normal, no suspicious rashes or lesions Head: Normocephalic, no masses, lesions, tenderness or abnormalities Eyes: Anicteric sclera. Pupils are equally round. Extraocular movements are intact. Oropharynx: Lips, mucosa, and tongue normal, teeth and gums normal, oropharynx normal Neck: Supple, no adenopathy; thyroid symmetric, normal size Lungs: Lungs clear to auscultation. No wheezing, rhonchi, rales Heart: Regular rate and rhythm. Abdomen: Abdomen soft, non-tender. No masses, organomegaly Extremities: No deformities, edema, skin discoloration. Good capillary refill. Musculoskeletal: Muscular strength intact, No joint swelling, deformity, or tenderness Peripheral pulses: Normal radial pulse Neuro: Gait normal. Sensation grossly intact. IMAGING: None LABS: NA IMPRESSION: Chest pain PLAN: Jennifer Meredith is a very pleasant 61 year old female, with chest discomfort s/p PEH repair. EGD today. R/B/A explained including bleeding and perforation. This office note will be sent to the referring provider via electronic medical record and US mail. Angeles Hernandez MD [facility] NURSING PROGon 09-15-2017 Protein mass conc HNO ID: [id number] Author: Marissa (Rn) ROXANNA Vuong Service: (none) Author Type: Registered Nurse Type: Nursing Progress Note Filed: 09/15/2017 11:06 AM Note Text: PATIENT EDUCATION TOPIC: PROCEDURE / SURGERY: Post-op Teaching: Symptom Management READINESS TO LEARN COGNITIVE ABILITY: Alert and oriented MOTIVATION TO LEARN: Interested FAMILY SUPPORT: High - Very involved in pt care INSTRUCTION PROVIDED TO: Patient and family member PATIENT LEARNS BEST BY: Individual Instruction Written Instruction - Hand-outs Verbal Instruction FACTORS AFFECTING LEARNING: None PHYSICAL LIMITATIONS AFFECTING LEARNING: None LEARNING RESPONSE PATIENT/FAMILY RESPONSE: Information received as demonstrated by interest and questions METHOD OF INSTRUCTION: Teachback, Individual instruction Written instruction - handouts Verbal instruction including teachback FOLLOW-UP PLAN: Patient instructed to call with any further issues, Will receive a follow up phone call, and contact information given. INSTRUCTIONAL AIDS USED: NA SUPPLEMENTAL MATERIAL PROVIDED TO PATIENT: Post op discharge instructions. [facility] PT EDon 09-15-2017 PT ED HNO ID: [id number] Author: Maribell Do Service: (none) Author Type: (none) Type: Patient Education Filed: 09/15/2017 8:41 AM Note Text: PATIENT EDUCATION TOPIC: PROCEDURE / SURGERY: Procedure/Surgery: EGD PATIENT NAME: Jennifer Meredith PATIENT LOCATION: [place] [address] READINESS TO LEARN COGNITIVE ABILITY: Alert and oriented MOTIVATION TO LEARN: Eager FAMILY SUPPORT: Unable to assess - Family not present INSTRUCTION PROVIDED TO: Patient PATIENT LEARNS BEST BY: Verbal Instruction FACTORS AFFECTING LEARNING: None PHYSICAL LIMITATIONS AFFECTING LEARNING: None LEARNING RESPONSE DIAGNOSIS: ADULT: Upper Scope PATIENT/FAMILY RESPONSE: Information received as demonstrated by interest and questions METHOD OF INSTRUCTION: Verbal instruction FOLLOW-UP PLAN: Complete - No need for follow-up INSTRUCTIONAL AIDS USED: NA SUPPLEMENTAL MATERIAL PROVIDED TO PATIENT: None REFERRAL (RECOMMENDATION): None Electronically Signed By: Maribell Do [facility] SURGICAL PATHOLOGYon 018 SURGICAL PATHOLOGY Specimen originated from [facility] Specimen #: [id number] Submitting Physician: ANGELES HERNANDEZ MD FINAL DIAGNOSIS Antrum, biopsy - Gastric antral and oxyntic mucosa with no diagnostic alteration. - No histomorphologic evidence of Helicobacter pylori. EDK/gp 09/16/2017 Performed at [facility]. [address] [place] [address] Kathryn Estrada D.O. (Electronic Signature) SPECIMEN SUBMITTED A: ANTRUM, COLD BIOPSY CLINICAL DATA ATYPICAL CHEST PAIN GASTROPARESIS, GASTRITIS, RULE OUT H. PYLORI GROSS DESCRIPTION A. Received in formalin are two pieces of valenzuela, soft tissue aggregating to 0.2 x 0.2 x 0.1 cm. Totally submitted in one cassette. Gross examination performed at [facility], [address] [place] [address] AB 09/15/2017 3:49:04 PM Date of Report: 09/16/2017 Date of Procedure: 09/15/2017 Date of Receipt: 09/15/2017 Submitted by: ANGELES HERNANDEZ MD Location: [facility] Diagnostic interpretation performed at [place] [address]. [facility] Comment on above: Performed By: #### P ATHS ####[id number] [place] [address] HOSPon 08-28-2017 HOSP Patient:Kavon Meredith H MRN: Height:5' 4 (1.626 m) Weight:170 lb (77.111 kg) Outpatient Medications as of 09/15/17: acetaminophen (TYLENOL) 500 mg tablet multivitamin tablet CALCIUM CARB,GLUC/MAG OX,GLUC (CALCIUM MAGNESIUM ORAL) potassium chloride ER (K-DUR, KLOR-CON) 20 mEq tablet aspirin, enteric coated (ASPIRIN, ENTERIC COATED) 81 mg EC tablet Admission/Clinic Administered Medications as of 09/15/17: NaCl 0.9% iv infusion Problem List: Paraesophageal hernia [K44.9] Non morbid obesity [E66.9] Epigastric pain [R10.13] S/P repair of paraesophageal hernia [Z98.890, Z87.19] Allergies: Sulfa (Sulfonamide Antibiotics) Date Verified: 09/15/17 Lab Values No results within the last 30 days for the following basenames: K,HCT Progress Notes ([facility]): Angeles Hernandez MD 09/08/2017 5:46 PM Signed Patient is scheduled for EGD next week. She continues to have the significant chest pain even on a liquid diet. We'll make further management recommendations after the EGD has been done. Progress Notes ([facility]): Lyric Briones RN 09/03/2017 10:35 AM Signed Patient called to reschedule EGD. Patient is unable to find ride for 09/11/2017. Please notify patient of the new procedure date below. Patient Name: Jennifer Meredith Doctor: Angeles Hernandez MD Procedure: EGD Procedure Date: 09/18/2017 Procedure Time: 9:45am Time To Arrive: 8:45am Hospital: [address] [place] [address] Pre Admission Testing: NOT REQUIRED FOR THIS PROCEDURE. Pre Operative Instructions: ? Take nothing by mouth after midnight the night before surgery. ? Avoid taking any type of Aspirin or Ibuprofen, Coumadin, Plavix products beginning 5 days before your surgery. If you need to take something for pain, take Tylenol. ? Other Instructions: Report to 1st Floor Outpatient Surgery Department. ? Should you have any questions, please call the office at Maritza Villafana Ma 09/03/2017 11:03 AM Signed Spoke to patient and she is aware of the appointment date of 09/18 @ 9:45 with arrival time @ 8:45. Call back number provided patient to call with any questions or concerns. Maritza Vann PSArnie 09/03/2017 11:15 AM Signed Patient unable to get a ride for scheduled EGD on 09/18. Asked that it be rescheduled for a Thursday. Madelaine Vann PSR Lyric Briones RN 09/03/2017 12:51 PM Signed Before rescheduling, please confirm patient will have ride on 09/15/2017Thursday. We can schedule her between 9:00 am-11:00 am. Please confirm with patient and I will reschedule. Lyric Briones RN 09/03/2017 2:14 PM Signed Confirm EGD appointment with patient please. Procedure: EGD Procedure Date: 09/15/2017 Procedure Time: 10:00am Time To Arrive: 9:00am ? Hospital: [place] [address] [place] [address] ? Pre Admission Testing: NOT REQUIRED FOR THIS PROCEDURE. ? Pre Operative Instructions: ? ? Take nothing by mouth after midnight the night before surgery. ? ? Avoid taking any type of Aspirin or Ibuprofen, Coumadin, Plavix products beginning 5 days before your surgery. If you need to take something for pain, take Tylenol. ? ? Other Instructions: Report to 1st Floor Outpatient Surgery Department. ? ? Should you have any questions, please call the office at ? Maritza Villafana Ma 09/07/2017 8:41 AM Signed Called patient and she is aware of procedure 09/15 @ 10 a.m with a 9 a.m arrival time. 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 Normal [facility] XR UPPER GI SINGLE CONTRASTo n 08-27-2017 XR UPPER GI SINGLE CONTRAST * * *Final Report* * * DATE OF EXAM: Aug 27 2017 8:14AM FVX [id number] - XR UPPER GI SINGLE CONTRAST / PROCEDURE REASON: paraesophageal hernia * * * * Physician Interpretation * * * * UPPER GI SERIES: CLINICAL INFORMATION: Paraesophageal hernia status post laparoscopic William fundoplication. TECHNIQUE: A single contrast upper GI series was performed under fluoroscopy. Initially water-soluble contrast was used. During the second portion of the examination didn't contrast was used. The patient also received a radiopaque tablet. Fluoroscopic Radiation Summary: Plane A, Air Kerma: 217.5 mGy Plane B, Air Kerma: 0.0 mGy Dose Area Product (DAP): 0.0 mGy*cmS2 Fluoro time: 6:00 min:sec RESULT: There is mild delay in primary esophageal peristalsis with tertiary waves and to and fro motion. There is no leak identified. The patient received a radiopaque tablet. The radiopaque tablet remained in the distal esophagus just proximal to the GE junction even after administration of additional water. There is a fundoplication defect. There is no focal stricture. The stomach demonstrates no outlet obstruction. The duodenal bulb demonstrates no ulceration. There is no reflux identified. There is gaseous distention of the colon. IMPRESSION: Postsurgical changes from a fundoplication. The patient received a radiopaque tablet. The radiopaque tablet remained in the distal esophagus even after administration of additional water. Service Consultant: MARISOL Transcribe Date/Time: Aug 27 2017 8:33A Dictated by : WILIAM SPEARS MD This examination was interpreted and the report reviewed and electronically signed by: WILIAM SPEARS MD on Aug 27 2017 8:38AM EST [id number] CN Normal [facility] Basic Metabolic Panlon 08-11 Anion gap molar conc 14 mmol/L Normal 9-18 [facility] Comment on above: Performed By: #### C BCDIF, BMP #### [place] [phone] Calcium mass conc 8.5 mg/dL Normal 8.5-10.5 [facility] Comment on above: Performed By: #### C BCDIF, BMP #### [place] [phone] Chloride molar conc 104 mmol/L Normal 98-110 [facility] Comment on above: Performed By: #### C BCDIF, BMP #### [place] [phone] CO2 molar conc 23 mmol/L Normal 23-32 [facility] Comment on above: Performed By: #### C BCDIF, BMP #### [place] [phone] Creatinine mass conc 0.66 mg/dL Low 0.70-1.40 [facility] Comment on above: Performed By: #### C BCDIF, BMP #### [place] [phone] eGFR- Amer. >60 Normal >60 [facility] Comment on above: Performed By: #### C BCDIF, BMP #### [place] [phone] GFR/1.73 sq M predicted among non-blacks MDRD vol rate/area (S/P/Bld) mL/min/{1.73_m2} Normal >60 [facility] Comment on above: Performed By: #### C BCDIF, BMP #### [place] [phone] Glucose mass conc 109 mg/dL High 65-100 [facility] Comment on above: Performed By: #### C BCDIF, BMP #### [place] [phone] Potassium molar conc 4.1 mmol/L Normal 3.5-5.0 [facility] Comment on above: Performed By: #### C BCDIF, BMP #### [place] [phone] Sodium molar conc 141 mmol/L Normal 132-148 [facility] Comment on above: Performed By: #### C BCLUCITAF, BMP #### [place] [phone] Urea nitrogen mass conc 9 mg/dL Normal 8-25 [facility] Comment on above: Performed By: #### C BCLUCITAF, BMP #### [place] [phone] CBC and Differentialon 08-11 Abs Baso <0.03 Normal <0.11 [facility] Comment on above: Performed By: #### C BCDIF, BMP #### [place] [phone] Abs Wolfe 0.71 k/uL Normal <0.87 [facility] Comment on above: Performed By: #### C BCDIF, BMP #### [place] [phone] Abs Neut 6.30 k/uL Normal 1.45-7.50 [facility] Comment on above: Performed By: #### C BCDIF, BMP #### [place] [phone] Basophils/100 WBC (Bld) 0.2 % Normal [facility] Comment on above: Performed By: #### C BCDIF, BMP #### [place] [phone] DTYPE Auto Diff Normal [facility] Comment on above: Performed By: #### C BCDIF, BMP #### [place] [phone] Eosinophils #/vol (Bld) 0.03 10*3/uL Normal <0.46 [facility] Comment on above: Performed By: #### C BCDIF, BMP #### [address] Eosinophils/100 WBC (Bld) 0.3 % Normal [facility] Comment on above: Performed By: #### C BCDIF, BMP #### [place] [address] Erythrocyte distribution width Ratio (RBC) 14.8 % Normal 11.5-15.0 [facility] Comment on above: Performed By: #### C BCDIF, BMP #### [address] Hematocrit Volume Fraction (Bld) 40.4 % Normal 36.0-46.0 [facility] Comment on above: Performed By: #### C BCDIF, BMP #### [place] [phone] Hemoglobin mass conc (Bld) 13.6 g/dL Normal 11.5-15.5 [facility] Comment on above: Performed By: #### C BCDIF, BMP #### [place] [phone] Lymphocytes #/vol (Bld) 1.52 10*3/uL Normal 1.00-4.00 [facility] Comment on above: Performed By: #### C BCDIF, BMP #### [address] Lymphocytes/100 WBC (Bld) 17.7 % Normal [facility] Comment on above: Performed By: #### C BCDIF, BMP #### [place] [phone] MCH Entitic mass (RBC) 29.2 pG Normal 26.0-34.0 [facility] Comment on above: Performed By: #### C BCDIF, BMP #### [place] [phone] MCHC mass conc (RBC) 33.7 g/dL Normal 30.5-36.0 [facility] Comment on above: Performed By: #### C BCDIF, BMP #### [place] [phone] MCV Entitic volume (RBC) 86.7 fL Normal 80.0-100.0 [facility] Comment on above: Performed By: #### C BCDIJuan, BMP #### [place] [phone] Monocytes/100 WBC (Bld) 8.3 % Normal [facility] Comment on above: Performed By: #### C BCDIF, BMP #### [place] [phone] Neutrophils/100 WBC (Bld) 73.5 % Normal [facility] Comment on above: Performed By: #### C BCSUZAN, BMP #### [place] [phone] Platelet mean volume Entitic volume (Bld) 11.2 fL Normal 9.0-12.7 [facility] Comment on above: Performed By: #### C BCDIF, BMP #### [place] [phone] Platelets #/vol (Bld) 240 10*3/uL Normal 150-400 [facility] Comment on above: Performed By: #### C BCDIF, BMP #### [place] [phone] RBC #/vol (Bld) 4.66 10*6/uL Normal 3.90-5.20 [facility] Comment on above: Performed By: #### C BCDIF, BMP #### [place] [phone] WBC #/vol (Bld) 8.58 10*3/uL Normal 3.70-11.00 [facility] Comment on above: Performed By: #### C KENDRA, VENUS #### [place] [phone] NURSING PROGon 08-11-2017 Protein mass conc HNO ID: [id number] Author: Lexie (Rn) Wilman, RN Service: Nursing Author Type: Registered Nurse Type: Nursing Progress Note Filed: 08/11/2017 1:05 PM Note Text: 0820: Pt A+Ox3, speech clear. Abdomen soft, pt denies pain. Lap sites x 5 [employer] with skin glue, no drainage present. Pt denies flatus post-op, ambulation encouraged. Tolerating liquid diet, denies NANDV. IVF with K+ infusing at 50 ml/hr. IPC's maintained bilaterally. Temp 99.7F orally, IS use encouraged, pt reaches ~1000 with use. 1000: Rounds with Dr Hernandez @ bedsideMD updated on slight temp this AM. Anticipated d/c home today. 1245: Discharge order recv'd. Pt tolerated full liquid diet for lunch. 1300: D/c education provided to pt and family member, all questions and concerns addressed. Follow up appt scheduled 08/24. Pt medicated with tylenol prior to d/c for 2/10 aching abdominal pain. Pt left unit with all personal belongings. Normal [facility] PLAN OF CAREon 08-11-2017 PLAN OF CARE HNO ID: [id number] Author: Onelia Fletcher (Pharmacist) Service: Pharmacy Author Type: Pharmacist Type: Plan of Care Filed: 08/11/2017 10:58 AM Note Text: DISCHARGE MEDICATION REVIEW BY PHARMACY Patient Name: Jennifer Meredith Admission Date: 08/10/2017 Date of Contact: August 11, 2017 Time of Contact: 10:58 AM Medication list was reviewed by a Pharmacist for drug interactions or drug related problems:Yes Onelia Fletcher, Pharmacist August 11, 2017 10:58 AM Medication List START taking these medications acetaminophen 500 mg tablet Commonly known as: TYLENOL Take 2 tablets by mouth every 6 hours. CHANGE how you take these medications multivitamin tablet Take 1 tablet by mouth once daily. What changed: - how much to take - when to take this CONTINUE taking these medications aspirin, enteric coated 81 mg EC tablet Commonly known as: ASPIRIN, ENTERIC COATED CALCIUM MAGNESIUM ORAL potassium chloride ER 20 mEq tablet Commonly known as: K-DUR, KLOR-CON Take 1 tablet by mouth once daily. Where to Get Your Medications Information about where to get these medications is not yet available ! Ask your nurse or doctor about these medications - acetaminophen 500 mg tablet - multivitamin tablet [facility] PROGRESSon 08-11-2017 Protein mass conc HNO ID: [id number] Author: Angeles Hernandez Service: General Surgery Author Type: Physician Type: Progress Notes Filed: 08/11/2017 11:41 AM Note Text: General Surgery Progress Note Service Date: August 11, 2017 Assessment and Plan: 61 year old female POD 1 s/p laparoscopic paraesophageal hernia repair and William fundoplication - Diet: Advanced to full liquids, will stay on fulls for 4 weeks after discharge - GI: Zofran for nausea - Resp: BPH, IS - CVS/Heme: Heme stable - Renal: Strict I/Os - Neuro: Cognitive intact, alert oriented x 3 - ID: No abx indication - Activity: OOBx5 - Pain control: Continue current regimen - scheduled Tylenol, PRN PO roxicodone, IV dilaudid - Pending results: Pathology - Prophylaxis: SQH, SCDs - Dispo: Home today pending tolerates PO, ambulation, pain control Plan to be discussed with Dr. Angeles Valdez) David. Subjective: Acute events overnight: none. Pain: well controlled. Nausea: No. Vomiting: No. Bowel movement: No. Physical Exam: BP 126/67 Pulse 77 Temp 37.5 ?C (99.5 ?F) (Oral) Resp 18 Ht 160 cm (5' 3 ) Wt 82.1 kg (181 lb) SpO2 93% BMI 32.06 kg/m2 GENERAL: well appearing 61 year old female in no distress LUNGS: nonlabored breathing on RA CARDIAC: warm and well perfused throughout ABDOMEN: wound C/D/I, soft, non distended, expected incisional tenderness Labs: CBC, BMP, MG, PHOS Recent Labs 08/11/17 0634 WBC 8.58 HB 13.6 HCT 40.4 PLT 240 NA 141 K 4.1 CHLOR 104 CO2 23 BUN 9 CREAT 0.66* GLUC 109* CA 8.5 Liver Function, Amylase, AND Lipase No results for input(s): TPROT, ALB, ALT, AST, ALKPHOS, TBILI, LACT in the last 14322 hours. Invalid input(s): REY, LIP Coags No results for input(s): APTT, INR in the last 90856 hours. Invalid input(s): PT Intake and Output: Date 08/10/17699 - 08/11/17 0608/11/17699 - 08/12/17 0659 Shift 3988-2136 6783-3793 0333-7270 24 Hour Total 4307-7223 7145-6030 1688-0649 24 Hour Total I N T A K E PO 100 480 580 PO 100 480 580 IV 500 365 865 D5 0.45%NS w/20KCL 500 365 865 Shift Total 100 227 710 7949 O U T P U T Urine 200 175 250 625 Void (ml) 175 250 425 Tube Output ([REMOVED] Indwelling Urinary Catheter 08/10/17 Cár[place] 16 Fr 08/10/17 1430) 200 200 Emesis 0 0 0 Emesis (ml) 0 0 0 # of BMs Number of BMs 0 x 0 x 0 x Shift Total 200 175 250 625 Weight (kg) 82.1 82.1 82.1 82.1 82.1 82.1 82.1 82.1 Current Medications: Current hospital medications: 0.9% NaCl 2-10 mL 2-10 mL INTRAVENOUS q 12 H dextrose 5% in NaCl 0.45% with 20 mEq/L KCl iv infusion 50 mL/hr INTRAVENOUS CONTINUOUS heparin 5,000 Units injection 5,000 Units SUBCUTANEOUS q 12 H oxyCODONE 5-10 mg oral liquid (ROXICODONE) 5-10 mg ORAL q 4 H PRN ondansetron 4 mg tab(s) (ZOFRAN) 4 mg ORAL q 6 H PRN ondansetron (PF) 4 mg injection (ZOFRAN) 4 mg INTRAVENOUS q 6 H PRN HYDROmorphone 0.2 mg injection (DILAUDID) 0.2 mg INTRAVENOUS q 3 H PRN acetaminophen 1,000 mg tab(s) (TYLENOL) 1,000 mg ORAL q 6 H Signature: Kristi Colorado MD Pager: [phone] Date: August 11, 2017 Time: 8:03 AM Patient Name: Jennifer Meredith STAFF NOTE I have independently seen and examined the patient today. I have independently reviewed all the imaging and the labs. I agree with daly components of the resident's note above. Care plan and decision making has been discussed. Doing great, tolerating full liquid diet without dysphagia. Okay for DC Angeles Hernandez MD, MPH, FACS General/Trauma/HPB Surgery Pager: [phone] Cell: [phone] August 11, 2017 [facility] ANES Jose C 08-10-2017 ANES POST HNO ID: [id number] Author: PINO Dsouza (Aa) Service: Anesthesiology Author Type: Crab Fisherman Type: Anesthesia PostOp Filed: 08/10/2017 11:33 AM Note Text: POST ANESTHESIA EVALUATION NOTE SERVICE DATE: 08/10/2017 SERVICE TIME: 11:32 AM : 1955 Vitals: 08/10/17 0632 08/10/17 1059 Temp: 36.2 ?C (97.2 ?F) 36 ?C (96.8 ?F) 08/10/17 0632 08/10/17 1059 08/10/17 1115 08/10/17 1130 BP: 136/64 93/73 120/80 128/71 08/10/17 0632 08/10/17 1059 08/10/17 1115 08/10/17 1130 Pulse: 74 87 86 86 08/10/17 0632 08/10/17 1059 08/10/17 1115 08/10/17 1130 Resp: 16 15 22 24 08/10/17 0632 08/10/17 1059 08/10/17 1115 08/10/17 1130 SpO2: 100% 100% 100% 97% Validated Vital Signs: Yes POST ANES STATUS: No apparent anesthetic complications. The patient is appropriately hydrated with stable respiratory and cardiovascular status. Patient has safe and adequate airway control. The patient has appropriate pain relief and no significant post operative nausea or vomiting. The patient has achieved baseline mental status. Further assessment by Anesthesia Service: None Other Remarks: SIGNATURE: PINO Dsouza PATIENT NAME: Jennifer Meredith DATE: August 10, 2017 TIME: 11:32 AM PAGER/CONTACT #: [facility] ASHLEE PREOPon 08-10-2017 ANES PREOP HNO ID: [id number] Author: Natalio Cee Service: Anesthesiology Author Type: Anesthesiologist Type: Anesthesia PreOp Filed: 08/10/2017 7:25 AM Note Text: REGIONAL ANESTHESIOLOGY DAY OF SURGERY NOTE PATIENT NAME: Jennifer Meredith : 1955 Procedure(s) (LRB): LAPAROSCOPIC HERNIORRHAPHY PARAESOPHAGEAL (N/A) Surgeon(s): Angeles Hernandez Estimated body mass index is 31.1 kg/(m2) as calculated from the following: Height as of 07/27/17: 162.6 cm (5' 4 ). Weight as of 07/27/17: 82.2 kg (181 lb 3.2 oz). ASA Class: 2 Adequate NPO status: Yes Allergies: ALLERGIES Allergen Reactions - Sulfa (Sulfonamide * Hives Airway Assessment: MP 2; Neck ROM: Full ROM without neurologic symptoms; Airway Evaluation: Thick neck Dentition: Complete lower dentures Symptoms of Sleep Apnea: Denies Most recent lab results: No results found for this basename: Hb,HCT,K,Plt,PTSEC,A PTT,INR,Creat HCG not indicated Vitals: 08/10/17 0632 BP: 136/64 Pulse: 74 Resp: 16 Temp: 36.2 ?C (97.2 ?F) SpO2: 100% Anesthesia History: Previous Anesthesia: No history of adverse event Family history of anesthetic problems: None Physical Exam and other tests: Lungs: Lungs clear to auscultation. Good diaphragmatic excursion. CHEST XRAY: Not indicated HEART EXAM:Regular rate and rhythm CARDIAC TESTS: not indicated EKG: Sinus Rhythm CAD HX: Pt denies GA and CAD Other Medical Problems/ Important Considerations: Pt can walk 2-3 flights of stairs and 4-5 block without SOB, CP, fainting, lightheadedness. Denies chest pain and SOB with exertion. Denies change in functional capacity. Denies GERD. Chronic Beta Darlene medication administered within 24 hours: not indicated Anesthetic risks, benefits, alternatives, personnel and consent discussed: Yes Patient agrees to proceed: Yes Blood Products: Will accept Blood/Blood Products Anesthetic Plan: General ETT; Standard ASA Monitors Pain Management Plan: Parenteral or Oral [facility] Chart Review ACTIVE PROBLEM LIST Paraesophageal Hernia Non Morbid Obesity PAST MEDICAL HISTORY Diagnosis Date - Hiatal hernia 04/10/2017 EGD large hiatal hernia > 15cm with Dr. Tereso Holt - Measles - Non morbid obesity 07/27/2017 PAST SURGICAL HISTORY Procedure Laterality Date - APPENDECTOMY HX - CATARACT EXTRACTION HX Bilateral 03/2016 - CHOLECYSTECTOMY HX laparoscopic - COLONOSCOPY 04/10/2017 - EGD 04/10/2017 - HYSTERECTOMY HX - MENISCAL RT W/TIB PLATEAU Right 2016 FAMILY HISTORY Problem Relation Age of Onset - Adopted: Yes Social History: Social History Substance Use Topics - Smoking status: Never Smoker - Smokeless tobacco: Never Used - Alcohol use No No current facility-administere d medications on file prior to encounter. Current Outpatient Prescriptions on File Prior to Encounter: potassium chloride ER (K-DUR, KLOR-CON) 20 mEq tablet Take 1 tablet by mouth once daily. CALCIUM CARB,GLUC/MAG OX,GLUC (CALCIUM MAGNESIUM ORAL) Take by mouth once daily. MULTIVITAMIN ORAL Take by mouth. aspirin, enteric coated (ASPIRIN, ENTERIC COATED) 81 mg EC tablet Take 81 mg by mouth once daily. Inpatient medications reviewed in [facility]. I have interviewed and examined the patient. I have reviewed the medical record and/or the pre-anesthesia evaluation, pertinent labs, and test results. This contains updated information obtained within 48 hours of Surgery/Procedure. SIGNATURE: PINO Dsouza DATE: August 10, 2017 TIME: 7:12 AM Attending Note: Daly findings confirmed. Patient examined. Discussed with the AA and the patient. Plan as outlined. Natalio Cee MD August 10, 2017 7:25 AM Normal [facility] NURSING PROGon 08-10-2017 Protein mass conc HNO ID: [id number] Author: Lexie (Rn) Wilman, RN Service: Nursing Author Type: Registered Nurse Type: Nursing Progress Note Filed: 08/10/2017 12:51 PM Note Text: Nursing Progress Note Patient Name: Jennifer Meredith Patient Location: [address] Transfer Note: Patient transferred into room/unit [facility] in stable condition. Actions taken: No futher actions taken at this time. Will continue to monitor and check with patient. Patient belongings with patient. Pt arrived unit via cart with cousin Casimiro accompanying. VSS, afebrile. A+Ox3, speech clear. Clear liquid diet ordered, no swallowing deficit. Abdomen soft, 5 lap sites closed with glue intact, no drainage present. Bowel sounds present. Lung sounds clear, non-productive cough. Cárdenas cath patent. IS education given, pt encouraged frequent use. IPC's intact bilat. Safety maintained, will continue with plan of care. This note was completed by: Lexie Stovall RN [facility] OPERATIVE NOon 08-10-2017 OPERATIVE NO HNO ID: [id number] Author: Angeles Valdez) David Service: General Surgery Author Type: Physician Type: Operative Report Filed: 08/11/2017 6:23 PM Note Text: [facility] - Operative Report JENNIFER MEREDITH : 1955 AGE: 61 SEX: F ACCTNUM: [id number] [facility]: LOCATION: [facility] ATTENDING PHYSICIAN: Angeles Hernandez MD DATE OF PROCEDURE: 08/10/2017 PREOPERATIVE DIAGNOSIS: Paraesophageal hernia. POSTOPERATIVE DIAGNOSIS: Same. NAME OF OPERATION: 1. Laparoscopic repair of paraesophageal hernia. 2. Laparoscopic posterior hernioplasty. 3. Laparoscopic William fundoplication. 4. Laparoscopic placement of transversus abdominis, fascial block. SURGEON: Angeles Hernandez MD KENO TERMINAL OPERATOR: Chris Cat M.D. ANESTHESIA: General endotracheal anesthesia. COMPLICATIONS: None. ESTIMATED BLOOD LOSS: Less than 10 cc. SPECIMENS: Sac, wound class is A. INDICATIONS: The patient is a pleasant 61-year-old female with a symptomatic paraesophageal hernia. She had a preoperative workup. She did not have any significant esophageal dysmotility. The patient was scheduled for laparoscopic hernia repair. FINDINGS: 1. An uncomplicated paraesophageal hernia repair was done. 2. William fundoplication was performed over 60-Vietnamese bougie. 3. Leak test was noted to be negative via endoscopy. PROCEDURE: The patient was brought to the operating room and placed supine on the operating table. General anesthesia was induced. The abdomen was prepped and draped in the usual standard surgical fashion. A 5-mm left upper quadrant incision was made. Entry was gained to the abdomen using standard Optiview technique. Under direct vision, a 12-mm port was placed in the left supraumbilical region. A 12-mm port was placed in the right midclavicular and sub- paraumbilical. Another 5 mm port was placed in the right midclavicular and subcostally. A 5-mm incision was made in the epigastrium and Jenn retractor was placed. The patient was placed in steep head-up position. The stomach was reduced back into the abdomen. The pars flaccida was opened up. Dissection was taken to the real. The sac was transected from right to left. The entire sac was removed from the chest, was dissected off the chest. The posterior real was identified, both on the right and the left side. A Timur drain was passed around this, secured using PDS Endoloop. Further dissection of the esophagus was performed to free the esophagus up to the chest. At this point, a comfortable 3 to 4 cm of esophagus was noted in the abdomen. The excess sac was transected and passed off the field as a specimen. Posterior hydroplasty was performed using four [id number] stitch using silk. Next, a bougie was passed under direct vision into the stomach. A floppy short William fundoplication was created using two silk sutures on top of the bougie, and the bougie was removed. An endoscopy was performed, and a leak test was done without any evidence of leak. The William was noted to be intact. The stomach was desufflated. Vicryl sutures were placed on both the 12-mm port sites. Transversus abdominis block was performed using 20 cc of Exparel on both sides. All the ports were in direct vision. The fascia at the 12-mm port sites were closed using the pre-placed sutures. The skin was closed using Monocryl and SureClose. The patient tolerated the procedure without complications well. I was present and scrubbed in throughout the operation. Please refer to the brief op note for start time and the end time. Angeles Hernandez MD Dept Of Surgery TA:[id number] /[id number] [facility] PROGRESSon 08-10-2017 Protein mass conc HNO ID: [id number] Author: Minoo Acevedo (Res) MD Victor Manuel Service: General Surgery Author Type: Resident Type: Progress Notes Filed: 08/10/2017 6:30 PM Note Text: Post-Op Check 61 year old female POD 0 s/p laparoscopic paraesophageal hernia repair and William fundoplication Subj: Denies chills, chest pain, palpitations, difficulty breathing, shortness of breath Denies nausea and vomiting No complains of pain Not ambulating Cárdenas catheter in place BP 114/60 Pulse 82 Temp 36.9 ?C (98.5 ?F) (Oral) Resp 16 Ht 160 cm (5' 3 ) Wt 82.1 kg (181 lb) SpO2 96% BMI 32.06 kg/m2 Gen: Laying in bed, NAD Resp: Breathing comfortable on 3L NC, speaking in full sentences, lungs clear CTAB in anterior de jesus Card: RRR, no MRG, 2+ DP and radial pulses Abd: Flat, soft, nondistended, mildly tender to palpation, dressing clean, dry and intact Ext: No edema, SCDs in place Plans: - Diet: Clear liquid diet, will advance to full liquid tomorrow, and will stay on fulls for 4 weeks after discharge - GI: Zofran for nausea - Resp: BPH, IS, wean oxygen as able - CVS/Heme: Heme stable - Renal: Strict I/os - Neuro: Cognitive intact, alert oriented x 3 - ID: No abx indication - Activity: OOB, ambulate as able - Pain control: Continue current regimen - IV dilaudid PO roxicodone - Pending results: Pathology - Prophylaxis: DVT prophylaxis, SCDs - Dispo: Victor Manuel Cortez PGY-1 Gen Surg [id number] [facility] SURGICAL PATHOLOGYon 018 SURGICAL PATHOLOGY Specimen originated from [facility] Specimen #: [id number] Submitting Physician: ANGELES HERNANDEZ MD FINAL DIAGNOSIS Paraesophageal hernia, herniorrhaphy - Hernia sac. - Benign-appearing lymph node. SEK/laron/08/11/17 Rajendra Mohr MD (Electronic Signature) SPECIMEN SUBMITTED A: HERNIA SAC CLINICAL DATA PARAESOPHAGEAL HERNIA GROSS DESCRIPTION A. Received in formalin designated hernia sac is a single segment of valenzuela-pink membranous tissue with minimally attached fibrofatty tissue. The specimen is serially sectioned and palpated and no areas of induration or nodularity are identified. Online Trader section is submitted in one cassette. Gross examination performed at [facility], [address] [place] [address] BF/lbk 08/10/2017 Date of Report: 08/12/2017 Date of Procedure: 08/10/2017 Date of Receipt: 08/10/2017 Submitted by: ANGELES HERNANDEZ MD Location: [facility] Diagnostic interpretation performed at [facility], [address] [place] [address]. Normal [facility] Comment on above: Performed By: #### P ATHS ####[id number] [place] [address] NURSING PROGon 08-04-2017 Protein mass conc HNO ID: [id number] Author: Crista (Rn) Jose, ROXANNA Service: (none) Author Type: Registered Nurse Type: Nursing Progress Note Filed: 08/04/2017 11:32 AM Note Text: PACC Nurse Progress Note History AND Physical: PACC Visit Date: 07/27 Original HANDP Date: N/A ED visit Date: N/A Outside HANDP Scanned Date: N/A Labs Within Last 6 Months: CBC: Date 06/18/17 external available Imaging Within Last 12 Months: N/A Cardiac Testing: EKG in last 12 Months: Yes: Date: 03/27/17, Comment: external available in epic Last Menstrual Period: LMP Date: N/A Postmenopausal >1yr: N/A, S/P Hysterectomy: Yes BMI Percentile (PEDS): N/A Risk Assessment: N/A Anesthesia Review: N/A Narrative: N/A Pre-op Considerations: N/A Chart Check: COMPLETED Crista Garcia RN August 04, 2017 11:31 AM Normal [facility] HOSPon 07-23-2017 HOSP Patient:Kavon Meredith H MRN: Height:5' 4 (1.626 m) Weight:181 lb 3.2 oz (82.192 kg) Outpatient Medications as of 08/10/17: potassium chloride ER (K-DUR, KLOR-CON) 20 mEq tablet CALCIUM CARB,GLUC/MAG OX,GLUC (CALCIUM MAGNESIUM ORAL) MULTIVITAMIN ORAL aspirin, enteric coated (ASPIRIN, ENTERIC COATED) 81 mg EC tablet Admission/Clinic Administered Medications as of 08/10/17: 0.9% NaCl 2-10 mL heparin 5,000 Units injection ceFAZolin 2 g in dextrose (iso-osmotic) 100 mL (ANCEF, KEFZOL) promethazine 12.5 mg tab(s) (PHENERGAN) albuterol 2.5 mg /3 mL (0.083 %) 2.5 mg (PROVENTIL) NaCl 0.9% iv infusion morphine 2 mg injection fentaNYL 50 mcg/mL 25 mcg injection (SUBLIMAZE) ondansetron 4 mg tab(s) (ZOFRAN) ondansetron (PF) 4 mg injection (ZOFRAN) scopolamine 1 mg over 3 days 1 Patch (TRANSDERM-SCOP) scopolamine - VERIFY patch scopolamine - REMOVE PATCH meperidine (PF) 12.5 mg injection (DEMEROL) Problem List: Paraesophageal hernia [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 No 0 on a scale of 0 to 10 PROGRESS: Nutrition Intervention (date of last encounter 06/22/17): dd a premier protein drink in the evening and have a 2 oz low fat cheese, and 4 zo meat at lunch to get to protein goal TAKE vitamins as directed in plan Take stool softener daily; add Sugar benefiber daily; look for benefiber sugar free drink mixes. 1. Continue to follow Protein Sparing Modified Fast meal plan 14 ounces protein and 2 vegetable servings per day 2. Continue to take the following supplements: Potassium as prescribed by Dr. Hernandez Calcium 5055-7447 milligram /day. Limit calcium supplements to 600 mg per dose for best absorption. Calcium Carbonate needs to be taken with food for absorption. Calcium Citrate does not need to be taken with food. Multivitamin/mineral daily Magnesium 500 milligram per day Sodium (salt)1500 milligram per day 3. Continue to drink 64 ounces calorie free beverages per day 4. Check ketones at least 2x per week to ensure you are in ketosis (with Ketostix or Chemstrips) 5. Continue to exercise with goal: 150 - 250 minutes aerobic activity per week Resistance training two times per week for 10 - 20 minutes CHANGES IN TREATMENT: Patient met goal(s): Yes Actions to implement interventions: Is patient exercising? Yes-bike 10 min Days per week? 6-7 Duration of exercise? <30 minutes/session Is patient drinking > 64 oz fluids per day: Yes Aspartame < 36 oz: Yes Ketone strips used? No How often? Not used Does patient eat recommended level of protein? No, less than recommended Does the patient eat recommended servings of vegetables? Yes Does patient take recommended MVI? Yes Does patient take recommended Magnesium? Yes Does patient take recommended Calcium? Yes Does patient salt food or use recommended sodium? Yes Does patient take recommended potassium? Yes Has patient obtained monthly labs? No Diet History: Breakfast - protein drink (premier), tea Snack - no Lunch - meat and veg or salad ([employer]) Snack - no Dinner - protein and cheese, tea Snack - no Beverages - water, tea, diet pop Vitamins/Supplements - [facility] CL[facility]ICAL IMPRESSIONS: good REVISIONS IN DIAGNOSIS: Diagnosis: has not changed. Allergies: Sulfa (Sulfonamide Antibiotics) Medications: Current Outpatient Prescriptions: CALCIUM CARB,GLUC/MAG OX,GLUC (CALCIUM MAGNESIUM ORAL) Take by mouth once daily. Disp: Rfl: MULTIVITAMIN ORAL Take by mouth. Disp: Rfl: potassium chloride ER (K-DUR, KLOR-CON) 20 mEq tablet Take 1 tablet by mouth once daily. Disp: 30 tablet Rfl: [address] (PROTONIX) 40 mg tablet Take 40 mg by mouth once daily. Disp: Rfl: aspirin, enteric coated (ASPIRIN, ENTERIC COATED) 81 mg EC tablet Take 81 mg by mouth once daily. Disp: Rfl: No current facility-administere d medications for this visit. (currently taking) Anthropometrics: Height: Last 1 Encounter Ht Readings: Date: Ht: 07/27/2017 162.6 cm (5' 4 ) Current weight: Last 1 Encounter Wt Readings: Date: Wt: 07/27/2017 81.9 kg (180 lb 8 oz) Body mass index is 30.98 kg/(m2). Resting Metabolic Rate: 1373 NUTRITION ASSESSMENT: Malnutrition Screening Significant unintentional weight loss? No Eating less than 75% of usual intake for more than 2 weeks? No RECOMMENDED MALNUTRITION DIAGNOSIS: NO MALNUTRITION IDENTIFIED Educational materials provided: none this visit READINESS TO LEARN Cognitive ability: Alert and oriented Motivation to learn: Interested Family support: Unable to assess - Family not present Instruction provided to: Patient Patient learns best by: Individual Instruction Factors affecting learning: None Physical limitations affecting learning: None Likelihood of Adherence: Moderate Patient presents for follow up MNT for weightloss following PSMF diet. Start date of SPMF 05/18/17 at 201 pounds, Diet recall reviewed, found to adhere to most aspects of PSMF diet (vegetable, fluid, supplements,). Protein less than recommended, this was also discussed last visit Exercise less than recommended, does not like to exercise Supporting weight loss of 5 pounds since last visit, total loss since start of plan 20 pjounds/11% Bw loss. Tolerating plan fair, no hunger but with some issues with constipation, taking stool softener. Weight goal 170 to have surgery; surgery is schedules in two weeks ,plans to stay on diet post surgery. Nutrition Diagnosis: Overweight Obesity,follow [facility] Nutrition Intervention 07/27/2017: modify type and amount of food or beverage 1. Continue to follow Protein Sparing Modified Fast meal plan 14 ounces protein and 2 vegetable servings per day 2. Continue to take the following supplements: Potassium as prescribed by Dr. Hernandez Calcium 7349-4667 milligram /day. Limit calcium supplements to 600 mg per dose for best absorption. Calcium Carbonate needs to be taken with food for absorption. Calcium Citrate does not need to be taken with food. Multivitamin/mineral daily Magnesium 500 milligram per day Sodium (salt)1500 milligram per day 3. Continue to drink 64 ounces calorie free beverages per day 4. Check ketones at least 2x per week to ensure you are in ketosis (with Ketostix or Chemstrips) 5. Continue to exercise with goal: 150 - 250 minutes aerobic activity per week Resistance training two times per week for 10 - 20 minutes Ensure adequate protein Increase exercise Nutrition Monitoring AND Evaluation: 2-5 pound weightloss per week Criteria: patient update Need for Follow up: 6 weeks Referred/Supervised by: David/Yong CRAWFORD Billing Type: Re-assess/15 min 1 unit SIGNATURE: Akila Nix MS RD LD PATIENT NAME: Jennifer Meredith DATE: July 27, 2017 TIME: 10:07 AM Progress Notes ([facility]): Lyric Briones RN 07/22/2017 3:51 PM Signed AMBULATORY PATIENT EDUCATION NOTE TOPIC: SURVIVAL SKILLS: Complication Prevention Diet Pain Management Safety Precautions Symptom Management Wound Care READINESS TO LEARN COGNITIVE ABILITY: Alert and oriented MOTIVATION TO LEARN: Eager FAMILY SUPPORT: Unable to assess - Family not present INSTRUCTION PROVIDED TO: Patient PATIENT LEARNS BEST BY: Individual Instruction FACTORS AFFECTING LEARNING: None PHYSICAL LIMITATIONS AFFECTING LEARNING: None LEARNING RESPONSE DIAGNOSIS: paraesophageal hernia METHOD OF INSTRUCTION: Written instruction - handouts Verbal instruction PATIENT / FAMILY RESPONSE: Information received as demonstrated by interest and questions FOLLOW-UP PLAN: Complete - No need for follow-up Patient instructed to call with any further issues Contact information given. SUPPLEMENTAL MATERIAL: [facility] pre op and post op instructions REFERRAL (RECOMMENDATION): None Electronically Signed By: Lyric Briones RN In Department: GENERAL SURGERY [facility] Vital Signs Date Time Vital Sign Value Performing Clinician Gina castillo 01-27-2024 09:50-0400 Blood Pressure Location Sahra Wadsworth [facility] 01-27-2024 09:50-0400 Body temperature 96.8 [degF] Sahra Lue [facility] 01-27-2024 09:50-0400 Diastolic blood pressure 76 mm[Hg] Sahra Lue [facility] 01-27-2024 09:50-0400 Heart rate 72 /min Sahra Lue [facility] 01-27-2024 09:50-0400 Systolic blood pressure 130 mm[Hg] Sahra Lue [facility] 01-24-2024 05:50-0400 Diastolic blood pressure 72 mm[Hg] Kaylinn Dokken [facility] 01-24-2024 05:50-0400 Heart rate 83 /min Kaylinn Dokken [facility] 01-24-2024 05:50-0400 Mean blood pressure 92 mm[Hg] Kaylinn Dokken [facility] 01-24-2024 05:50-0400 Respiratory rate 16 /min Kaylinn Dokken [facility] 01-24-2024 05:50-0400 SaO2% (BldA) [Mass fraction] 93 % Kaylinn Dokken [facility] 01-24-2024 05:50-0400 Systolic blood pressure 133 mm[Hg] Kaylinn Dokken [facility] 01-24-2024 05:21-0400 Diastolic blood pressure 72 mm[Hg] Kaylinn Dokken [facility] 01-24-2024 05:21-0400 Heart rate 78 /min Kaylinn Dokken [facility] 01-24-2024 05:21-0400 Mean blood pressure 95 mm[Hg] Kaylinn Dokken [facility] 01-24-2024 05:21-0400 Respiratory rate 18 /min Kaylinn Dokken [facility] 01-24-2024 05:21-0400 SaO2% (BldA) [Mass fraction] 96 % Kaylinn Dokken [facility] 01-24-2024 05:21-0400 Systolic blood pressure 140 mm[Hg] Kaylinn Dokken [facility] 01-24-2024 04:21-0400 Diastolic blood pressure 71 mm[Hg] Kaylinn Dokken [facility] 01-24-2024 04:21-0400 Heart rate 72 /min Kaylinn Dokken [facility] 01-24-2024 04:21-0400 Mean blood pressure 92 mm[Hg] Kaylinn Dokken [facility] 01-24-2024 04:21-0400 Respiratory rate 16 /min Kaylinn Dokken [facility] 01-24-2024 04:21-0400 SaO2% (BldA) [Mass fraction] 98 % Kaylinn Dokken [facility] 01-24-2024 04:21-0400 Systolic blood pressure 134 mm[Hg] Kaylinn Dokken [facility] 01-24-2024 03:56-0400 Body temperature 97.7 [degF] Kaylinn Dokkcamilla [facility] 01-24-2024 03:56-0400 Heart rate 68 /min Ayaz Halltanyacamilla [facility] Encounters Encounter Date Encounter Type Care Provider Facility Start: 02-24-2024 End: 02-24-2024 ambulatory Sahra Wadsworth Facility:[facility] Start: 02-24-2024 End: 02-24-2024 Off-Site Sahra Wadsworth [facility] Start: 02-17-2024 End: 02-17-2024 ambulatory Sahra Wadsworth Facility:[id number] Start: 02-03-2024 End: 02-03-2024 Refill Rosalba S Rachel DO Work Phone: Gastroenterology Comment on above: Refill Request Start: 01-27-2024 ambulatory Sahra Wadsworth Facility:[facility] Start: 01-27-2024 End: 01-27-2024 Patient encounter [facility] Start: 01-25-2024 ambulatory Sahra Wadsworth Facility:[facility] Brady Start: 01-24-2024 End: 01-24-2024 Emergency department patient visit Ayaz Miles Antoniocamilla [facility] Start: 08-07-2023 ambulatory Rosalba S Clin e DO Work Phone: Gastroenterology Comment on above: Ct test results Start: 07-30-2023 End: 07-30-2023 ambulatory ROSALBA S RACHEL Facility:[facility] Start: 07-30-2023 End: 07-30-2023 Patient encounter procedure ROSALBA S RACHEL [facility] Start: 07-16-2023 Telephone encounter Rosalba Rachel DO Work Phone: Gastroenterology Comment on above: Outside Labs Results Start: 07-15-2023 End: 07-15-2023 ambulatory Julien Anthony Facility:[facility] Start: 07-15-2023 End: 07-15-2023 Patient encounter procedure Kermit Anthony [facility] Start: 07-14-2023 End: 07-14-2023 ambulatory BARB GEE Facility:[facility] Start: 12-15-2022 End: 12-15-2022 Patient encounter procedure Abi BIRD [facility] Start: 06-24-2022 Telephone encounter Rosalba Rachel DO Work Phone: Gastroenterology Comment on above: Medication Preauthor ization ([place] for Ibsrela) Start: 06-24-2022 End: 06-24-2022 Patient encounter procedure Rosalba Rachel DO Work Phone: Gastroenterology Comment on above: Irritable bowel synd low with constipation (Primary Dx) Start: 04-29-2022 Telephone encounter Rosalba Rachel DO Work Phone: Gastroenterology Comment on above: Patient Question Patient Assistance Emiliana pompa ([employer] for Amitiza) Start: 12-27-2021 End: 12-27-2021 Patient encounter procedure Eliane Duron [facility] Start: 12-12-2021 End: 12-12-2021 Patient encounter procedure Eliane Duron [facility] Start: 07-05-2018 Patient encounter procedure ANGELES VALDEZ) [facility] Start: 09-15-2017 End: 09-15-2017 Patient encounter procedure ANGELES VALDEZ) [facility] Start: 08-27-2017 Patient encounter procedure ANGELES VALDEZ) [facility] Start: 08-10-2017 End: 08-11-2017 Patient encounter procedure ANGELES VALDEZ) [facility] Start: 04-23-2017 Ambulatory KEILY COWAN Facility: [id number] Start: 04-23-2017 Ambulatory Facility:[id number] Procedures Date Procedure Procedure Detail Performing Clinician Start: 03-15-2016 Bilateral cataracts (disorder) Eliane Duron Start: 03-26-2015 Arthrs knee w/menisc ectomy med&lat w/shaving Sahra Wadsworth Start: 03-26-2015 right knee arthroscopy Eliane Duron Hiatal hernia (disorder) Pepper hy Lue Hysterectomy Eliane Rochegles Laparoscopic cholecystectomy Eliane Duron Plan of Treatment Date Care Activity Detail Author Start: 03-09-2024 ambulatory Ambulatory Facility:[facility] Start: 02-14-2024 Influenza vaccination [facility] Start: 06-15-2023 Advance Directive Discussion Advance Directive Discussion [facility] Start: 06-15-2023 Behavioral Health Screening Behavioral Health Screening [facility] Start: 06-15-2023 Depression Assessment Depression Assessment [facility] Start: 02-13-2023 Covid-19 Vaccine ( season) Covid-19 Vaccine () [facility] Start: 02-13-2023 Influenza vaccination Influenza Vaccine (#1) [facility] Start: 06-15-2022 ADVANCE DIRECTIVE DISCUSSION ADVANCE DIRECTIVE DISCUSSION [facility] Start: 06-15-2022 DEPRESSION ASSESSMENT DEPRESSION ASSESSMENT [facility] Start: 03-06-2022 COVID-19 VACCINE (5 - Booster for Pfizer series) COVID-19 VACCINE (5 - Booster for Pfizer series) [facility] Start: 02-13-2022 Influenza vaccination INFLUENZA (#1) [facility] Start: 10-27-2021 DIABETES SCREEN DIABETES SCREEN [facility] Start: 10-27-2021 Diabetes Screening Diabetes Screening [facility] Start: 06-15-2021 ADVANCE DIRECTIVE DISCUSSION ADVANCE DIRECTIVE DISCUSSION [facility] Start: 06-15-2021 DEPRESSION ASSESSMENT DEPRESSION ASSESSMENT [facility] Start: 09-19-2020 BONE DENSITY BONE DENSITY [facility] Start: 09-19-2020 Pneumococcal Vaccine: 65+ (1 of 1 - PCV) Pneumococcal Vaccine: 65+ (1 of 1 - PCV) [facility] Start: 09-19-2020 PNEUMOCOCCAL: 65+ (1 - PCV) PNEUMOCOCCAL: 65+ (1 - PCV) [facility] Start: 09-19-2020 Screening for osteoporosis Bone Density Screening [facility] Start: 2015 RSV Vaccine (1 - 1-dose 60+ series) RSV Vaccine (1 - 1-dose 60+ series) [facility] Start: 09-19-2005 SHINGRIX VACCINE (1 of 2) SHINGRIX VACCINE (1 of 2) [facility] Start: 09-19-2000 COLOGUARD (FIT-DNA) COLOGUARD (FIT-DNA) [facility] Start: 09-19-2000 Colonoscopy COLONOSCOPY [facility] Start: 09-19-2000 COLORECTAL CANCER SCREENING COLORECTAL CANCER SCREENING [facility] Start: 09-19-[address] COLONOGRAPHY [facility] Start: 09-19-2000 FECAL OCCULT BLOOD FECAL OCCULT BLOOD [facility] Start: 09-19-2000 Lipid panel Lipid Screening [facility] Start: 09-19-2000 LIPID SCREEN LIPID SCREEN [facility] Start: 09-19-2000 Screening for malignant neoplasm of colon [facility] Start: 09-19-2000 SIGMOIDOSCOPY SIGMOIDOSCOPY [facility] Start: 1995 Mammography MAMMOGRAM [facility] Start: 1995 Screening for malignant neoplasm of breast Mammogram Screening [facility] Start: 09-19-1974 Urine microalbumin profile [facility] Start: 09-19-1973 Anxiety Screening Anxiety Screening [facility] Start: 09-19-1973 Depression Screening Depression Screening [facility] Start: 09-19-1973 HEPATITIS C SCREENING HEPATITIS C SCREENING [facility] Start: 09-19-1973 Hepatitis C screening Hepatitis C Screening [facility] Start: 03-21-1956 COVID-19 VACCINE (#1) COVID-19 VACCINE (#1) [facility] Immunizations Immunization Date Immunization Notes Care Provider Radha briggs 01-09-2022 SARS-CoV-2 mRNA (icxlgznjvvs-pcwa-zbjjd se) vaccine Sahra Lue [facility] 05-16-2021 SARS-CoV-2 (COVID-19 ) mRNA BNT-162b2 vax Sahra Lue [facility] 07-24-2020 SARS-CoV-2 (COVID-19 ) mRNA BNT-162b2 vax Sahra Lue [facility] Comment on above: Result Comment: 2023: [id number] 07-03-2020 SARS-CoV-2 (COVID-19 ) mRNA BNT-162p8 vax Sahra Lue [facility] Comment on above: Result Comment: 2023: [id number] 03-23-2019 influenza virus vaccine, unspecified formulation Rosalba Rachel DO Work Phone: [facility] 03-16-2019 influenza virus vaccine, unspecified formulation Sahra Lue [facility] 04-09-2017 influenza virus vaccine, unspecified formulation Sahra Lue [facility] 04-09-2017 influenza, seasonal, injectable Rosalba Rachel DO Work Phone: [facility] 03-09-2006 hepatitis B vaccine, adult dosage Sahra Lue [facility] Payers Date Payer Category Payer Private Health Insurance CLI [id number] 2020 Private Health Insurance [employer] VICTORIA [id number] 2020-Present [phone] [place] [id number] CATHERINE CARDENAS [id number] Open Access [id number] 2020 Medicare MEDICARE MEDICAR E A AND B [id number] 2020-Present [phone] [place] [address] Medicare [id number] 2020 Medicare [id number] 1955 Unknown [id number] 1955 Unknown [id number] 1955 Unknown [id number] 1955 Unknown [id number] 1955 Unknown [id number] 1955 Unknown [id number] 1955 Unknown [id number] 1955 Unknown [id number] Private Health Insurance [id number] Social History Date Type Detail Facility Tobacco smoking status No Smokin g Status Entered [facility] Start: 05-23-2020 End: 07-14-2023 Sex Assigned At Female [facility] Start: 07-21-2017 End: 01-27-2024 Tobacco smoking status NHIS Never smoked tobacco [facility] Start: 07-21-2017 End: 07-14-2023 Tobacco use and exposure Smokeless tobacco non-user [facility] Start: 04-12-2019 End: 07-14-2023 Alcohol intake Current non-drinker of alcohol (finding) [facility] Start: 1955 Sex Assigned At Not on file [facility] Tobacco smoking status No Smokin g Status Entered [facility] Start: 05-23-2020 End: 07-14-2023 History of Social function [facility] PHQ2 Score [address] Functional Status Date Assessment Result Facility 01-27-2024 Functional Status N/A [facility] 01-24-2024 Functional Status N/A [facility] Clinical Notes 04-29-2022 to 02-03-2024 Telephone Encounter - Raquel Barksdale MA - 02/03/2024 2:38 PM EDTTelephone Encounter - Raquel Barksdale MA - 02/03/2024 2:38 PM EDT Note Date & Type Note Facility 02-03-2024 Telephone encount er Note Name of medication: Marvinreljannette Name of ordering provider: Dr. Rachel LILA: 07/14/2023 LDH: Visit date not found NOV: Visit date not found NDH: Spoke with patient - confirmed patient is requesting refill. Yes Has patient been seen within the year? Yes Pharmacy updated: Yes Medication pended - please file if appropriate. [facility] 02-03-2024 Miscellaneous Notes Formattin g of this note might be different from the original. Name of medication: Ibsreljannette Name of ordering provider: Dr. Rachel LILA: 07/14/2023 LDH: Visit date not found NOV: Visit date not found NDH: Spoke with patient - confirmed patient is requesting refill. Yes Has patient been seen within the year? Yes Pharmacy updated: Yes Medication pended - please file if appropriate. documented in this encounter [facility] 01-27-2024 Hospital Discharg e instructions Patient Education 01/27/2024 10:56:15 Hydronephrosis Hydronephrosis Hydronephrosis is the swelling of one or both kidneys due to a blockage that stops urine from flowing out of the body. Kidneys filter waste from the blood and produce urine. This condition can lead to kidney failure and may become life-threatening if not treated promptly. What are the causes? In infants and children, common causes include problems that occur when a baby is developing in the womb. These can include problems in the kidneys or in the tubes that drain urine into the bladder (ureters). In adults, common causes include: Kidney stones. . A tumor or cyst in the abdomen or pelvis. An enlarged prostate gland. Other causes include: Bladder infection. Scar tissue from a previous surgery or injury. A blood clot. Cancer of the prostate, bladder, uterus, ovary, or colon. What are the signs or symptoms? Symptoms of this condition include: Pain or discomfort in your side (flank) or abdomen. Swelling in your abdomen. Nausea and vomiting. Fever. Pain when passing urine. Feelings of urgency when you need to urinate. Urinating more often than normal. In some cases, you may not have any symptoms. How is this diagnosed? This condition may be diagnosed based on: Your symptoms and medical history. A physical exam. Blood and urine tests. Imaging tests, such as an ultrasound, CT scan, or MRI. A procedure to look at your urinary tract and bladder by inserting a scope into the urethra (cystoscopy). How is this treated? Treatment for this condition depends on where the blockage is, how long it has been there, and what caused it. The goal of treatment is to remove the blockage. Treatment may include: Antibiotic medicines to treat or prevent infection. A procedure to place a small, thin tube (stent) into a blocked ureter. The stent will keep the ureter open so that urine can drain through it. A nonsurgical procedure that crushes kidney stones with shock waves (extracorporeal shock wave lithotripsy). If kidney failure occurs, treatment may include dialysis or a kidney transplant. Follow these instructions at home: Take dxre-czc-lfutzdd and prescription medicines only as told by your health care provider. If you were prescribed an antibiotic medicine, take it exactly as told by your health care provider. Do not stop taking the antibiotic even if you start to feel better. Rest and return to your normal activities as told by your health care provider. Ask your health care provider what activities are safe for you. Drink enough fluid to keep your urine pale yellow. Keep all follow-up visits. This is important. Contact a health care provider if: You continue to have symptoms after treatment. You develop new symptoms. Your urine becomes cloudy or bloody. You have a fever. Get help right away if: You have severe flank or abdominal pain. You cannot drink fluids without vomiting. Summary Hydronephrosis is the swelling of one or both kidneys due to a blockage that stops urine from flowing out of the body. Hydronephrosis can lead to kidney failure and may become life-threatening if not treated promptly. The goal of treatment is to remove the blockage. It may include a procedure to insert a stent into a blocked ureter, a procedure to break up kidney stones, or taking antibiotic medicines. Follow your health care provider's instructions for taking care of yourself at home, including instructions about drinking fluids, taking medicines, and limiting activities. This information is not intended to replace advice given to you by your health care provider. Make sure you discuss any questions you have with your health care provider. Document Revised: 09/18/2020 Document Reviewed: 09/18/2020 [employer] Patient Education 2022 [employer]. 01/27/2024 10:56:06 Ureteral Stent Implantation, Care After Ureteral Stent Implantation, Care After The following information offers guidance on how to care for yourself after your procedure. Your health care provider may also give you more specific instructions. If you have problems or questions, contact your health care provider. What can I expect after the procedure? After the procedure, it is common to have: Nausea. Mild pain when you urinate. You may feel this pain in your lower back or lower abdomen. The pain should stop within a few minutes after you urinate. This pattern may last for up to 1 week. A small amount of blood in your urine for several days. Follow these instructions at home: Medicines Take kxlf-hez-uamditx and prescription medicines only as told by your health care provider. If you were prescribed antibiotics, take them as told by your health care provider. Do not stop using the antibiotic even if you start to feel better. If you were given a sedative during the procedure, it can affect you for several hours. Do not drive or operate machinery until your health care provider says that it is safe. Ask your health care provider if the medicine prescribed to you: ?Requires you to avoid driving or using machinery. ?Can cause constipation. You may need to take these actions to prevent or treat constipation: ?Take kkvd-zzw-ljxytdq or prescription medicines. ?Eat foods that are high in fiber, such as beans, whole grains, and fresh fruits and vegetables. ?Limit foods that are high in fat and processed sugars, such as fried or sweet foods. Activity Rest as told by your health care provider. Do not sit for a long time without moving. Get up to take short walks every 1 2 hours. This will improve blood flow and breathing. Ask for help if you feel weak or unsteady. Return to your normal activities as told by your health care provider. Ask your health care provider what activities are safe for you. General instructions If you have a catheter: ?Follow instructions from your health care provider about taking care of your catheter and collection bag. ?Do not take baths, swim, or use a hot tub until your health care provider approves. Ask your health care provider if you may take showers. You may only be allowed to take sponge baths. Drink enough fluid to keep your urine pale yellow. Do not use any products that contain nicotine or tobacco. These products include cigarettes, chewing tobacco, and vaping devices, such as e-cigarettes. These can delay healing after surgery. If you need help quitting, ask your health care provider. Keep all follow-up visits. Contact a health care provider if: You start passing blood clots, or you have more than a small amount of blood in your urine. You have pain that gets worse or does not get better with medicine, especially pain when you urinate. You have trouble urinating. You feel nauseous or you vomit again and again during a period of more than 2 days after the procedure. You have a fever. Get help right away if: You are passing blood clots that are 1 inch (2.5 cm) or larger in size. You are leaking urine (have incontinence), or you cannot urinate. The end of the stent comes out of your urethra. You have sudden, sharp, or severe pain in your abdomen or lower back. You have swelling or pain in your legs. You have trouble breathing. These symptoms may be an emergency. Get help right away. Call 911. Do not wait to see if the symptoms will go away. Do not drive yourself to the hospital. Summary After the procedure, it is common to have mild pain when you urinate that goes away within a few minutes after you urinate. This may last for up to 1 week. Take mowa-crv-gzuwwfv and prescription medicines only as told by your health care provider. Drink enough fluid to keep your urine pale yellow. Call your health care provider if you start passing blood clots, or you have more than a small amount of blood in your urine. This information is not intended to replace advice given to you by your health care provider. Make sure you discuss any questions you have with your health care provider. Document Revised: 07/07/2022 Document Reviewed: 07/07/2022 [employer] Patient Education 2022 [employer] 01/27/2024 10:56:05 Ureteral Stent Implantation Ureteral Stent Implantation Ureteral stent implantation is a procedure to insert (implant) a flexible, soft, plastic tube (stent) into a ureter. Ureters are the tubelike parts of the body that drain urine from the kidneys. A ureteral stent may be implanted: After a procedure to remove a blockage from the ureter (ureterolysis or pyeloplasty). To open the flow of urine when a blockage is caused by a kidney stone, tumor, blood clot, or infection. You have two ureters, one on each side of your body. The ureters connect your kidneys to your bladder. The stent is placed so that one end is in your kidney, and one end is in your bladder. The stent supports the ureter while it heals and helps to drain urine. The stent is usually taken out after your ureter has healed. Depending on your condition, you may have a stent for just a few weeks, or you may have a long-term stent that will need to be replaced every few months. Tell a health care provider about: Any allergies you have. All medicines you are taking, including vitamins, herbs, eye drops, creams, and bqka-imo-xiqcvsv medicines. Any problems you or family members have had with anesthetic medicines. Any bleeding problems you have. Any surgeries you have had. Any medical conditions you have. Whether you are or may be . What are the risks? Generally, this is a safe procedure. However, problems may occur, including: Infection. Bleeding. Allergic reactions to medicines. Damage to nearby structures or organs, such as tearing (perforation) of the ureter. Movement of the stent away from where it is placed during surgery (migration). Buildup of a crust or hard coating (encrustation) on the stent. This happens when bacteria in the body form crystals on the stent, causing it to weaken. What happens before the procedure? Medicines Ask your health care provider about: Changing or stopping your regular medicines. These include any diabetes medicines or blood thinners you take. Taking medicines such as aspirin and ibuprofen. These medicines can thin your blood. Do not take them unless your health care provider tells you to. Taking tqsr-fem-gmvanol medicines, vitamins, herbs, and supplements. When to stop eating and drinking Follow instructions from your health care provider about what you may eat and drink. These may include: 8 hours before your procedure ?Stop eating most foods. Do not eat meat, fried foods, or fatty foods. ?Eat only light foods, such as toast or crackers. ?All liquids are okay except energy drinks and alcohol. 6 hours before your procedure ?Stop eating. ? Drink only clear liquids, such as water, clear fruit juice, black coffee, plain tea, and sports drinks. ?Do not drink energy drinks or alcohol. 2 hours before your procedure ?Stop drinking all liquids. ?You may be allowed to take medicines with small sips of water. If you do not follow your health care provider's instructions, your procedure may be delayed or canceled. General instructions Do not use any products that contain nicotine or tobacco for at least 4 weeks before the procedure. These products include cigarettes, chewing tobacco, and vaping devices, such as e-cigarettes. If you need help quitting, ask your health care provider. You may have an exam or testing, such as imaging or blood tests. If you will be going home right after the procedure, plan to have a responsible adult: ?Take you home from the hospital or clinic. You will not be allowed to drive. ?Care for you for the time you are told. Ask your health care provider what steps will be taken to help prevent infection. These steps may include: ?Removing hair at the surgery site. ?Washing skin with a soap that kills germs. ?Taking antibiotic medicine. What happens during the procedure? An IV will be inserted into one of your veins. You may be given: ?A medicine to help you relax (sedative). ?A medicine to make you fall asleep (general anesthetic). A thin, tube-shaped instrument with a light and tiny camera at the end (cystoscope) will be inserted into your urethra. The urethra is the part of your body that drains urine from the bladder. The urethra opens at the end of the penis or in front of the vaginal opening. The cystoscope will be passed into your bladder. Guided imagery using X-ray may be used to pass a thin wire (guide wire) through your bladder and into your ureter. This wire is used to guide the stent into your ureter. The stent will be inserted into your ureter. The guide wire and the cystoscope will be removed. A thin, flexible tube (catheter) may be put through your urethra so that one end is in your bladder. This helps to drain urine from your bladder. The procedure may vary among hospitals and health care providers. What happens after the procedure? Your blood pressure, heart rate, breathing rate, and blood oxygen level will be monitored until you leave the hospital or clinic. You may continue to get medicine and fluids through an IV. You may have some soreness or pain in your abdomen and urethra. You may be given medicines for this. You will be encouraged to get up and walk around as soon as you can. You may have a catheter draining your urine. Summary Ureteral stent implantation is a procedure to insert a flexible, soft, plastic tube (stent) into a ureter. You may have a stent implanted to support the ureter while it heals after a procedure or to open the flow of urine if there is a blockage. You may have a stent for just a few weeks, or you may have a long-term stent that will need to be replaced every few months. Follow instructions from your health care provider about taking medicines and about eating and drinking before the procedure. This information is not intended to replace advice given to you by your health care provider. Make sure you discuss any questions you have with your health care provider. Document Revised: 07/07/2022 Document Reviewed: 07/07/2022 [employer] Patient Education 2022 [employer] Follow Up Care 01/25/2024 15:59:53 With:Ananth PARTIDA, ESTELA Sheikh, URO Address: [address] [place] [address] [phone] When: Unknown Comments:sched cysto/R RGP/stent placement [facility] 01-27-2024 Note Patient Education Urology Hydronephrosis Hydronephrosis is the swelling of one or both kidneys due to a blockage that stops urine from flowing out of the body. Kidneys filter waste from the blood and produce urine. This condition can lead to kidney failure and may become life-threatening if not treated promptly. What are the causes? In infants and children, common causes include problems that occur when a baby is developing in the womb. These can include problems in the kidneys or in the tubes that drain urine into the bladder (ureters). In adults, common causes include: ? Kidney stones. ? . ? A tumor or cyst in the abdomen or pelvis. ? An enlarged prostate gland. Other causes include: ? Bladder infection. ? Scar tissue from a previous surgery or injury. ? A blood clot. ? Cancer of the prostate, bladder, uterus, ovary, or colon. What are the signs or symptoms? Symptoms of this condition include: ? Pain or discomfort in your side (flank) or abdomen. ? Swelling in your abdomen. ? Nausea and vomiting. ? Fever. ? Pain when passing urine. ? Feelings of urgency when you need to urinate. ? Urinating more often than normal. In some cases, you may not have any symptoms. How is this diagnosed? This condition may be diagnosed based on: ? Your symptoms and medical history. ? A physical exam. ? Blood and urine tests. ? Imaging tests, such as an ultrasound, CT scan, or MRI. ? A procedure to look at your urinary tract and bladder by inserting a scope into the urethra (cystoscopy). How is this treated? Treatment for this condition depends on where the blockage is, how long it has been there, and what caused it. The goal of treatment is to remove the blockage. Treatment may include: ? Antibiotic medicines to treat or prevent infection. ? A procedure to place a small, thin tube (stent) into a blocked ureter. The stent will keep the ureter open so that urine can drain through it. ? A nonsurgical procedure that crushes kidney stones with shock waves (extracorporeal shock wave lithotripsy). ? If kidney failure occurs, treatment may include dialysis or a kidney transplant. Follow these instructions at home: ? Take gzuk-ygq-rrgvotn and prescription medicines only as told by your health care provider. ? If you were prescribed an antibiotic medicine, take it exactly as told by your health care provider. Do not stop taking the antibiotic even if you start to feel better. ? Rest and return to your normal activities as told by your health care provider. Ask your health care provider what activities are safe for you. ? Drink enough fluid to keep your urine pale yellow. ? Keep all follow-up visits. This is important. Contact a health care provider if: ? You continue to have symptoms after treatment. ? You develop new symptoms. ? Your urine becomes cloudy or bloody. ? You have a fever. Get help right away if: ? You have severe flank or abdominal pain. ? You cannot drink fluids without vomiting. Summary ? Hydronephrosis is the swelling of one or both kidneys due to a blockage that stops urine from flowing out of the body. ? Hydronephrosis can lead to kidney failure and may become life-threatening if not treated promptly. ? The goal of treatment is to remove the blockage. It may include a procedure to insert a stent into a blocked ureter, a procedure to break up kidney stones, or taking antibiotic medicines. ? Follow your health care provider's instructions for taking care of yourself at home, including instructions about drinking fluids, taking medicines, and limiting activities. This information is not intended to replace advice given to you by your health care provider. Make sure you discuss any questions you have with your health care provider. Document Revised: 09/18/2020 Document Reviewed: 09/18/2020 [employer] Patient Education ? 2022 [employer] Ureteral Stent Implantation, Care After The following information offers guidance on how to care for yourself after your procedure. Your health care provider may also give you more specific instructions. If you have problems or questions, contact your health care provider. What can I expect after the procedure? After the procedure, it is common to have: ? Nausea. ? Mild pain when you urinate. You may feel this pain in your lower back or lower abdomen. The pain should stop within a few minutes after you urinate. This pattern may last for up to 1 week. ? A small amount of blood in your urine for several days. Follow these instructions at home: Medicines ? Take dtyv-ewg-fkxqbhu and prescription medicines only as told by your health care provider. ? If you were prescribed antibiotics, take them as told by your health care provider. Do not stop using the antibiotic even if you start to feel better. ? If you were given a sedative during the procedure, it can affect you for (more content not included)... [facility] 01-24-2024 Evaluation + Plan note Extrac ronit from: Title:ED Note Author:Ayaz Charles DO Date :01/24/24 Abdominal pain, acute (R10.9 : Unspecified abdominal pain) Acute UTI (urinary tract infection) (N39.0: Urinary tract infection, site not specified) N&V (nausea and vomiting) (R11.2: Nausea with vomiting, unspecified) Parapelvic renal cyst (N28.1: Cyst of kidney, acquired) Orders: ceftriaxone + Sodium Chloride 0.9% intravenous solution 50 mL, 1,000 mg = 1 EA, IV Piggyback, Once, Stop date 01/24/24 5:00:00 EDT, STAT, Start date 01/24/24 5:00:00 EDT, 100 mL/hr, Infuse over 30 minute(s), 01/24/24 5:00:00 EDT cephalexin, 500 mg = 1 cap(s), Oral, TID, X 5 day(s), # 15 cap(s), Refills(s) 0, Pharmacy: [facility], 160, cm, 01/24/24 3:58:00 EDT, Height/Length Dosing, 80.4, kg, 01/24/24 3:58:00 EDT, Weight Dosing dicyclomine, 20 mg = 2 mL, Injection, IntraMuscular, Once, Stop date 01/24/24 4:02:00 EDT, STAT, Start date 01/24/24 4:02:00 EDT, 01/24/24 4:02:00 EDT ketorolac, 15 mg = 1 mL, Injection, IV Push, Once, Stop date 01/24/24 5:49:00 EDT, STAT, Start date 01/24/24 5:49:00 EDT, 01/24/24 5:49:00 EDT naproxen, 500 mg = 1 tab(s), Oral, BID, PRN for pain, # 20 tab(s), Refills(s) 0, Pharmacy: [facility], 160, cm, 01/24/24 3:58:00 EDT, Height/Length Dosing, 80.4, kg, 01/24/24 3:58:00 EDT, Weight Dosing ondansetron, 4 mg = 2 mL, Injection, IV Push, Once, Stop date 01/24/24 4:02:00 EDT, STAT, Start date 01/24/24 4:02:00 EDT, 01/24/24 4:02:00 EDT ondansetron, 4 mg = 1 tab(s), Oral, q6hr, # 12 tab(s), Refills(s) 0, Pharmacy: [facility], 160, cm, 01/24/24 3:58:00 EDT, Height/Length Dosing, 80.4, kg, 01/24/24 3:58:00 EDT, Weight Dosing Sodium Chloride 0.9% intravenous solution, 1,000 mL, Soln-IV, IV, Once, Stop date 01/24/24 4:02:00 EDT, STAT, Start date 01/24/24 4:02:00 EDT, Infuse over 61, minute(s) Basic Metabolic Panel CBC w/ Auto Diff CT Abdomen/Pelvis w/ Contrast eGFR Hepatic Function Panel Lipase Level UA with Cult Rflx Urine Culture Diagnostic Tests Pending * Urine Culture 01/24/24 [facility] 08-11-2024 Hospital Discharge instructions Patient Education 01/24/2024 06:04:20 Urinary Tract Infection, Adult, Xglr-fm-Ztub Urinary Tract Infection, Adult A urinary tract infection (UTI) is an infection of any part of the urinary tract. The urinary tractincludes: The kidneys. The ureters. The bladder. The urethra. These organs make, store, and get rid of pee (urine) in the body. What are the causes? This infection is caused by germs (bacteria) in your genital area. These germs grow and cause swelling (inflammation) of your urinary tract. What increases the risk? The following factors may make you more likely to develop this condition: Using a small, thin tube (catheter) to drain pee. Not being able to control when you pee or poop (incontinence). Being female. If you are female, these things can increase the risk: ?Using these methods to prevent : ?A medicine that kills sperm (spermicide). ?A device that blocks sperm (diaphragm). ?Having low levels of a female hormone (estrogen). ?Being . You are more likely to develop this condition if: You have genes that add to your risk. You are sexually active. You take antibiotic medicines. You have trouble peeing because of: ?A prostate that is bigger than normal, if you are male. ?A blockage in the part of your body that drains pee from the bladder. ?A kidney stone. ?A nerve condition that affects your bladder. ?Not getting enough to drink. ?Not peeing often enough. You have other conditions, such as: ?Diabetes. ?A weak disease-fighting system (immune system). ?Sickle cell disease. ?Gout. ?Injury of the spine. What are the signs or symptoms? Symptoms of this condition include: Needing to pee right away. Peeing small amounts often. Pain or burning when peeing. Blood in the pee. Pee that smells bad or not like normal. Trouble peeing. Pee that is cloudy. Fluid coming from the vagina, if you are female. Pain in the belly or lower back. Other symptoms include: Vomiting. Not feeling hungry. Feeling mixed up (confused). This may be the first symptom in older adults. Being tired and grouchy (irritable). A fever. Watery poop (diarrhea). How is this treated? Taking antibiotic medicine. Taking other medicines. Drinking enough water. In some cases, you may need to see a specialist. Follow these instructions at home: Medicines Take jpnr-jby-ciwxygn and prescription medicines only as told by your doctor. If you were prescribed an antibiotic medicine, take it as told by your doctor. Do not stop taking it even if you start to feel better. General instructions Make sure you: ?Pee until your bladder is empty. ?Do not hold pee for a long time. ?Empty your bladder after sex. ?Wipe from front to back after peeing or pooping if you are a female. Use each tissue one time whenyou wipe. Drink enough fluid to keep your pee pale yellow. Keep all follow-up visits. Contact a doctor if: You do not get better after 1 2 days. Your symptoms go away and then come back. Get help right away if: You have very bad back pain. You have very bad pain in your lower belly. You have a fever. You have chills. You feeling like you will vomit or you vomit. Summary A urinary tract infection (UTI) is an infection of any part of the urinary tract. This condition is caused by germs in your genital area. There are many risk factors for a UTI. Treatment includes antibiotic medicines. Drink enough fluid to keep your pee pale yellow. This information is not intended to replace advice given to you by your health care provider. Make sure you discuss any questions you have with your health care provider. Document Revised: 01/11/2021 Document Reviewed: 01/11/2021 [employer] Patient Education 2022 [employer]. 01/24/2024 06:04:20 Nausea and Vomiting, Adult, Hric-ia-Yqxj Nausea and Vomiting, Adult Nausea is feeling that you have an upset stomach and that you are about to vomit. Vomiting is when food in your stomach forcefully comes out of your mouth. Vomiting can make you feel weak. If you vomit, or if you are not able to drink enough fluids, you may not have enough water in your body (get dehydrated). If you do not have enough water in your body, you may: Feel tired. Feel thirsty. Have a dry mouth. Have cracked lips. Pee (urinate) less often. Older adults and people with other diseases or a weak body defense system (immune system) are at higher risk for not having enough water in the body. If you feel like you may vomit or you vomit, it is important to follow instructions from your doctor about how to take care of yourself. Follow these instructions at home: Watch your symptoms for any changes. Tell your doctor about them. Eating and drinking Take an ORS (oral rehydration solution). This is a drink that is sold at pharmacies and stores. Drink clear fluids in small amounts as you are able, such as: ?Water. ?Ice chips. ?Fruit juice that has water added (diluted fruit juice). ?Low-calorie sports drinks. Eat bland, eohu-ow-nvidhy foods in small amounts as you are able, such as: ?Bananas. ?Applesauce. ?Rice. ?Low-fat (lean) meats. ?[place]. ?Crackers. Avoid drinking fluids that have a lot of sugar or caffeine in them. This includes energy drinks, sports drinks, and soda. Avoid alcohol. Avoid spicy or fatty foods. General instructions Take duvr-ngd-numjiyd and prescription medicines only as told by your doctor. Drink enough fluid to keep your pee (urine) pale yellow. Wash your hands often with soap and water for at least 20 seconds. If you cannot use soap and water, use hand flash developer. Make sure that everyone in your home washes their hands well and often. Rest at home until you feel better. Watch your condition for any changes. Take slow and deep breaths when you feel like you may vomit. Keep all follow-up visits. Contact a doctor if: Your symptoms get worse. You have new symptoms. You have a fever. You cannot drink fluids without vomiting. You feel like you may vomit for more than 2 days. You feel light-headed or dizzy. You have a headache. You have muscle cramps. You have a rash. You have pain while peeing. Get help right away if: You have pain in your chest, neck, arm, or jaw. You feel very weak or you faint. You vomit again and again. You have vomit that is bright red or looks like black coffee grounds. You have bloody or black poop (stools) or poop that looks like tar. You have a very bad headache, a stiff neck, or both. You have very bad pain, cramping, or bloating in your belly (abdomen). You have trouble breathing. You are breathing very quickly. Your heart is beating very quickly. Your skin feels cold and clammy. You feel confused. You have signs of losing too much water in your body, such as: ?Dark pee, very little pee, or no pee. ?Cracked lips. ?Dry mouth. ?Sunken eyes. ?Sleepiness. ?Weakness. These symptoms may be an emergency. Get help right away. Call 911. Do not wait to see if the symptoms will go away. Do not drive yourself to the hospital. Summary Nausea is feeling that you have an upset stomach and that you are about to vomit. Vomiting is when food in your stomach comes out of your mouth. Follow instructions from your doctor about eating and drinking. Take tfte-fxw-lpwaqhu and prescription medicines only as told by your doctor. Contact your doctor if your symptoms get worse or you have new symptoms. Keep all follow-up visits. This information is not intended to replace advice given to you by your health care provider. Make sure you discuss any questions you have with your health care provider. Document Revised: 12/06/2021 Document Reviewed: 12/06/2021 [employer] Patient Education 2022 [employer]. 01/24/2024 06:04:20 Abdominal Pain, Adult, Fnnt-sz-Ihai Abdominal Pain, Adult Many things can cause belly (abdominal) pain. Most times, belly pain is not dangerous. Many cases of belly pain can be watched and treated at home. Sometimes, though, belly pain is serious. Your doctor will try to find the cause of your belly pain. Follow these instructions at home: Medicines Take bmlg-tow-krdrtew and prescription medicines only as told by your doctor. Do not take medicines that help you poop (laxatives) unless told by your doctor. General instructions Watch your belly pain for any changes. Drink enough fluid to keep your pee (urine) pale yellow. Keep all follow-up visits as told by your doctor. This is important. Contact a doctor if: Your belly pain changes or gets worse. You are not hungry, or you lose weight without trying. You are having trouble pooping (constipated) or have watery poop (diarrhea) for more than 2 3 days. You have pain when you pee or poop. Your belly pain wakes you up at night. Your pain gets worse with meals, after eating, or with certain foods. You are vomiting and cannot keep anything down. You have a fever. You have blood in your pee. Get help right away if: Your pain does not go away as soon as your doctor says it should. You cannot stop vomiting. Your pain is only in areas of your belly, such as the right side or the left lower part of the belly. You have bloody or black poop, or poop that looks like tar. You have very bad pain, cramping, or bloating in your belly. You have signs of not having enough fluid or water in your body (dehydration), such as: ?Dark pee, very little pee, or no pee. ?Cracked lips. ?Dry mouth. ?Sunken eyes. ?Sleepiness. ?Weakness. You have trouble breathing or chest pain. Summary Many cases of belly pain can be watched and treated at home. Watch your belly pain for any changes. Take hbdv-uoz-aaxaifw and prescription medicines only as told by your doctor. Contact a doctor if your belly pain changes or gets worse. Get help right away if you have very bad pain, cramping, or bloating in your belly. This information is not intended to replace advice given to you by your health care provider. Make sure you discuss any questions you have with your health care provider. Document Revised: 10/10/2019 Document Reviewed: 10/10/2019 [employer] Patient Education 2022 [employer] Follow Up Care 01/24/2024 03:50:24 With:Sahra Wadsworth Address:Unknown When:01/27/2024 05:51:58 Comments:Take the antibiotics as prescribed you have completed the course. You can use the pain medication, nausea medication as prescribed as needed for pain and nausea. Please follow-up with your primary care doctor in addition to urology for further evaluation of your kidney cyst. Please return to the EDfor any new or worsening symptoms. With:Barb Gee Address: [address] [place] [address]- Business (1) When:01/27/2024 05:51:56 [facility] 08-11-2024 NoteED Patient Education Note Gastroenterology Nausea and Vomiting, Adult Nausea is feeling that you have an upset stomach and that you are about to vomit. Vomiting is when food in your stomach forcefully comes out of your mouth. Vomiting can make you feel weak. If you vomit, or if you are not able to drink enough fluids, you may not have enough water in your body (get dehydrated). If you do not have enough water in your body, you may: ? Feel tired. ? Feel thirsty. ? Have a dry mouth. ? Have cracked lips. ? Pee (urinate) less often. Older adults and people with other diseases or a weak body defense system (immune system) are at higher risk for not having enough water in the body. If you feel like you may vomit or you vomit, it is important to follow instructions from your doctor about how to take care of yourself. Follow these instructions at home: Watch your symptoms for any changes. Tell your doctor about them. Eating and drinking ? Take an ORS (oral rehydration solution). This is a drink that is sold at pharmacies and stores. ? Drink clear fluids in small amounts as you are able, such as: ? Water. ? Ice chips. ? Fruit juice that has water added (diluted fruit juice). ? Low-calorie sports drinks. ? Eat bland, uicq-wf-qvgkdy foods in small amounts as you are able, such as: ? Bananas. ? Applesauce. ? Rice. ? Low-fat (lean) meats. ? [place]. ? Crackers. ? Avoid drinking fluids that have a lot of sugar or caffeine in them. This includes energy drinks, sports drinks, and soda. ? Avoid alcohol. ? Avoid spicy or fatty foods. General instructions ? Take mnmd-sgm-ujdlcvo and prescription medicines only as told by your doctor. ? Drink enough fluid to keep your pee (urine) pale yellow. ? Wash your hands often with soap and water for at least 20 seconds. If you cannot use soap and water, use hand flash developer. ? Make sure that everyone in your home washes their hands well and often. ? Rest at home until you feel better. ? Watch your condition for any changes. ? Take slow and deep breaths when you feel like you may vomit. ? Keep all follow-up visits. Contact a doctor if: ? Your symptoms get worse. ? You have new symptoms. ? You have a fever. ? You cannot drink fluids without vomiting. ? You feel like you may vomit for more than 2 days. ? You feel light-headed or dizzy. ? You have a headache. ? You have muscle cramps. ? You have a rash. ? You have pain while peeing. Get help right away if: ? You have pain in your chest, neck, arm, or jaw. ? You feel very weak or you faint. ? You vomit again and again. ? You have vomit that is bright red or looks like black coffee grounds. ? You have bloody or black poop (stools) or poop that looks like tar. ? You have a very bad headache, a stiff neck, or both. ? You have very bad pain, cramping, or bloating in your belly (abdomen). ? You have trouble breathing. ? You are breathing very quickly. ? Your heart is beating very quickly. ? Your skin feels cold and clammy. ? You feel confused. ? You have signs of losing too much water in your body, such as: ? Dark pee, very little pee, or no pee. ? Cracked lips. ? Dry mouth. ? Sunken eyes. ? Sleepiness. ? Weakness. These symptoms may be an emergency. Get help right away. Call 911. ? Do not wait to see if the symptoms will go away. ? Do not drive yourself to the hospital. Summary ? Nausea is feeling that you have an upset stomach and that you are about to vomit. Vomiting is when food in your stomach comes out of your mouth. ? Follow instructions from your doctor about eating and drinking. ? Take usuv-tpp-yvtuvrj and prescription medicines only as told by your doctor. ? Contact your doctor if your symptoms get worse or you have new symptoms. ? Keep all follow-up visits. This information is not intended to replace advice given to you by your health care provider. Make sure you discuss any questions you have with your health care provider. Document Revised: 12/06/2021 Document Reviewed: 12/06/2021 [employer] Patient Education ? 2022 [employer] Abdominal Pain, Adult Many things can cause belly (abdominal) pain. Most times, belly pain is not dangerous. Many cases of belly pain can be watched and treated at home. Sometimes, though, belly pain is serious. Your doctor will try to find the cause of your belly pain. Follow these instructions at home: Medicines ? Take cfye-leo-gdnmlwr and prescription medicines only as told by your doctor. ? Do not take medicines that help you poop (laxatives) unless told by your doctor. General instructions ? Watch your belly pain for any changes. ? Drink enough fluid to keep your pee (urine) pale yellow. ? Keep all follow-up visits as told by your doctor. This is important. Contact a doctor if: ? Your belly pain changes or gets worse. (more content not included)...[facility]02-27-2024 Miscellaneous Notes* Telephone Encounter - Pretty Mcleod RN - 08/11/2023 2:21 PM EST Called to patient to discuss continued pain. Patient informs that pain is not as severe than when she was last seen. Pain is in RLQ, currently rated 3/10. States she is regular since starting Ibsrela. She is concerned that she is not pain free. * Telephone Encounter - Crista Abernathy RN - 08/07/2023 10:52 AM EST ,, The CT results are in scan documents. Please advise,. Crista Abernathy Rn documented in [facility] encounterReg[facility] Miscellaneous Notes* Telephone Encounter - Barbra Carrizales - 07/30/2023 3:[address] scan for review in scanned documents * Telephone Encounter - Barbra Carrizales - 07/16/2023 8:46 AM EST Outside labs received and scanned on est patient. documented in this encounterRegency [facility] Company01-30-2024 NoteHNO ID: [id number] Author: ROSALBA RACHEL, DO Service: ? Author Type: Physician Type: Progress Notes Filed: 07/14/2023 09:47 Note Text: FOLLOW UP VISIT CHIEF COMPLAINT Patient presents with: Follow Up: RLQ pain Ms. Meredith is here today for follow-up of: constipation abdominal pain. HPI I saw this 67y/o in f/u for her gi issues. She had the sudden onset of R lateral sharp pain. No hx of kidney stones and no changes in urination. The ibsrela is working for the bowels. Current Outpatient Medications Medication Sig Dispense Refill simvastatin (ZOCOR) 10 mg tablet Take 10 mg by mouth daily at bedtime. tenapanor (IBSRELA) 50 mg tablet Take 1 tablet (50 mg) by mouth twice daily. 60 tablet 5 acetaminophen (TYLENOL) 500 mg tablet Take 2 tablets by mouth every 6 hours. multivitamin tablet Take 1 tablet by mouth once daily. lubiprostone (AMITIZA) 24 mcg capsule Take 1 capsule by mouth twice daily with meals. Patient will be renewing enrollment in the patient assistance program. 180 capsule 3 prucalopride 2 mg tablet (MOTEGRITY) Take 1 tablet (2 mg) by mouth once daily. 30 tablet 6 No current facility-administered medications for this visit. ALLERGIES Allergen Reactions Sulfa (Sulfonamide * Hives Social History Tobacco Use Smoking status: Never Smokeless tobacco: Never Substance Use Topics Alcohol use: No Drug use: No Comment: denies tx for drug/alcohol abuse in the past. Medical History: No changes since last visit. REVIEW OF SYSTEMS: GENERAL: weight stable, no fevers. 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 Reviewed with patient during visit today. PHYSICAL EXAMINATION: BP 116/79 Pulse 84 Resp 17 Ht 5' 3 (1.60m) Wt 178 lb 2.1 oz (80.8kg) SpO2 97% BMI 31.56 kg/(m2). GENERAL APPEARANCE: Well developed and well nourished. SKIN: Skin color, texture, turgor normal. No rashes or lesions. EYES: Conjunctiva normal without icterus. OROPHARYNX: lips, mucosa, and tongue normal, teeth and gums normal NECK: Supple, full range of motion, no lymphadenopathy, normal thyroid, no carotid bruits and no JVD LUNGS: Normal breath sounds, Clear to auscultation, No wheezes, No crackles. HEART:Normal PMI, Regular rate and rhythm, Normal heart sounds, S1 and S2 and No murmurs. NEURO: Alert and oriented in no acute distress. ABDOMEN: Normal bowel sounds, abdomen flat with no distention, Soft, tender r lateral just off iliac crest, no hepatomegaly. no palpable masses, no abdominal bruits, no rebound and no rigidity. EXTREMITIES:Extremities normal, No deformities, No skin discoloration, No edema . Assessment Encounter Diagnosis ICD-10-CM 1. Right lower quadrant abdominal pain R10.31 CT ABD/PEL W IVCON CREATININE BLD 2. Irritable bowel syndrome with constipation K58.1 tenapanor (IBSRELA) 50 mg tablet [facility]alba RachelDO [facility] Miscellaneous Notes* Telephone Encounter - Fahad Ortega RN - 06/24/2022 4:06 PM EST Email received from [employer] ([place]): Good afternoon, We wanted to provide your office with the status update that Jennifer Meredith has been approved for our Patient Assistance Program for the Ibsrela medication through 06/14/2023. Please do not hesitate to reach out with any questions. Thank you, Lucian Mcclain Patient Services Commercial Singer [employer]ud[employer]ilaist * Telephone Encounter - Fahad Ortega RN - 06/24/2022 4:01 PM EST APPROVED for IBSRELA Auth period: 06/15/22 - 06/14/23 Patient and pharmacy notified. * Telephone Encounter - Tina Sloan - 06/24/2022 3:06 PM EST PA for Ibsrela initiated electronically. Awaiting response [employer] Medicare Part D ID# [id number] Rx BIN [id number] Rx PCN MEDDADV Rx Grp RXCVSD documented in this encounterRegency [facility] Company01-10-2023 History of Present illness Narrative* Rosalba RachelDO - 06/24/2022 11:03 AM EST FOLLOW UP VISIT CHIEF COMPLAINT Patient presents with: Establish Care: Follow up Ms. Meredith is here today for follow-up of: constipation. HPI I saw this 66y/o in f/u for her gi issues. She can have diarrhea 2 times a week then normal stools to missing a day or so. Her weight is stable. We will try Ibsrela in place of the Amitiza given the inconsistent bowel movements. Current Outpatient Medications Medication Sig Dispense Refill lubiprostone (AMITIZA) 24 mcg capsule Take 1 capsule by mouth twice daily with meals. Patient will be renewing enrollment in the patient assistance program. 180 capsule 3 acetaminophen (TYLENOL) 500 mg tablet Take 2 tablets by mouth every 6 hours. multivitamin tablet Take 1 tablet by mouth once daily. prucalopride 2 mg tablet (MOTEGRITY) Take 1 tablet (2 mg) by mouth once daily. 30 tablet 6 No current facility-administered medications for this visit. ALLERGIES Allergen Reactions Sulfa (Sulfonamide * Hives Social History Tobacco Use Smoking status: Never Smokeless tobacco: Never Substance Use Topics Alcohol use: No Drug use: No Comment: denies tx for drug/alcohol abuse in the past. Medical History: No changes since last visit. REVIEW OF SYSTEMS: GENERAL: weight stable, no fevers. 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 Reviewed with patient during visit today. PHYSICAL EXAMINATION: There were no vitals taken for this visit. GENERAL APPEARANCE: Well developed and well nourished. SKIN: Skin color, texture, turgor normal. No rashes or lesions. EYES: Conjunctiva normal without icterus. OROPHARYNX: lips, mucosa, and tongue normal, teeth and gums normal NECK: Supple, full range of motion, no lymphadenopathy, normal thyroid, no carotid bruits and no JVD LUNGS: Normal breath sounds, Clear to auscultation, No wheezes, No crackles. HEART:Normal PMI, Regular rate and rhythm, Normal heart sounds, S1 and S2 and No murmurs. NEURO: Alert and oriented in no acute distress. ABDOMEN: Normal bowel sounds, abdomen flat with no distention, Soft, non-tender, no hepatomegaly. no palpable masses, no abdominal bruits, no rebound and no rigidity. EXTREMITIES:Extremities normal, No deformities, No skin discoloration, No edema . Assessment Encounter Diagnosis ICD-10-CM 1. Irritable bowel syndrome with constipation K58.1 tenapanor (IBSRELA) 50 mg tablet Rosalba Rachel DO 06/24/2022 documented in this encounterCleveland [id number] Miscellaneous Notes* Telephone Encounter - SHANA Powell - 04/29/2022 4:19 PM EST Appt scheduled Rx pended SHANA Powell * Telephone Encounter - Bel Anderson Pss - 04/29/2022 3:32 PM EST Jennifer Meredith is calling Rosalba Rachel DO today stating that she received a call/voicemail today but is not sure who called her. Patient stating that message mentioned something about medication lubiprostone (AMITIZA) 24 mcg capsule not getting refilled since she has not seen Dr. Rachel and something about a program ending. Patient requesting a call from whoever left her a voicemail. Please contact patient: [phone] Patient has been identified by name and birthdate. Bel Anderson Pss documented in this encounterRegency Hospital Company11-15-2022 Miscellaneous Notes* Telephone Encounter - Fahad Ortega RN - 04/29/2022 4:02 PM EST Patient called back. She has been scheduled for follow up appt with Dr. Rachel on 06/24/2022. [employer] forms Patient Assistance program for RENEWAL of Amitiza - filled out and signed by Dr. Rachel. Original forms mailed out to patient and she was notified. Per patient, she will keep copies for herself so she won't need to mail us back her part. She will mail completed forms to [employer]. Copy filed in PAP black box. * Telephone Encounter - Fahad Ortega RN - 04/29/2022 3:58 PM EST [employer] notification that patient's PAP for Amitiza will be expiring 05/2022. LILA = 03/2019 Last script refill = 08/2020. Called message - request call back to schedule a follow up appt in order to get new script. documented in this encounterRegency Hospital CompanyEvaluation + Plan note No data available for this section [facility] Future Appointments Appointment Date:07/30/2023 11:00:00 AM Scheduled Provider: [facility] App[facility] Type:CT Abdomen/Pelvis Combo () Future Scheduled Tests Radiology* CT Abdomen/Pelvis w/ Contrast 07/30/23 [facility] Future Appointments Appointment Date:03/09/2024 09:45:00 AM Scheduled Provider:Ananth PARTIDA, Sahra Wells Location:[facility] Appointment Type:URO Office Visit [facility] Caitlyn Evaluation note* Diagnosis Irritable bowel syndrome with constipation- Primary Irritable bowel syndrome documented in this encounter [facility] note* Diagnosis Preop examination- Primary Preoperative examination, unspecified Gastroparesis S/P repair of paraesophageal hernia Other postprocedural status Irritable bowel syndrome with constipation Irritable bowel syndrome [facility] No data available for this section [facility] No data available for this section [facility] Summary Purpose Family History No Family History Records FoundNo Family History Records FoundNo Family History Records FoundNo Family History Records Found No data available for this section No data available for this section No Family History Records Found No data available for this section No Family History Records FoundNo Family History Records FoundNo Family History Records FoundNo Family History Records FoundNo Family History Records FoundNo Family History Records FoundNo Family History Records Found No data available for this section No data available for this section No Family History Records Found Advance Directives No Advanced Directives Records FoundNo Advanced Directives Records FoundNo Advanced Directives Records FoundNo Advanced Directives Records FoundNo Advanced Directives Records FoundNo Advanced Directives Records FoundNo Advanced Directives Records FoundNo Advanced Directives Records FoundNo Advanced Directives Records FoundNo Advanced Directives Records FoundNo Advanced Directives Records FoundNo Advanced Directives Records FoundNo Advanced Directives Records Found Hospital Course Note HNO ID: [id number] Author: Gabby lewis (Tree Puller) JOSELYN Meza Service: General Surgery Author Type: Nurse Practitioner Type: Discharge Summaries Filed: 08/11/2017 1:38 PM Note Text: DISCHARGE SUMMARY PATIENT NAME: Jennifer Meredith ADMISSION DATE: 08/10/2017 DISCHARGE DATE: 08/11/2017 ATTENDING PHYSICIAN: Angeles Hernandez REASON FOR HOSPITALIZATION: scheduled surgery DIAGNOSIS: Active Problems: * No active hospital problems. * Resolved Problems: * No resolved hospital problems. * Ruled Out OPERATIONS DURING HOSPITALIZATION: Laparoscopic paraesophageal hernia repair, Laparoscopic William fundoplication PROCEDURES DURING HOSPITALIZATION: No procedures performed HOSPITAL COURSE: Admitted on 08/10/17 for scheduled surgery with Dr. Hernandez - Laparoscopic paraesophageal hernia repair, Laparoscopic William fundoplication. Post-op went well on the regular nursing floor. Diet advanced until tolerating full liquid diet. No dysphagia no pain. Pain controlled with tylenol, declined roxicodone. A (more content not included)... Note HNO ID: [id number] Author: Subhash Cat Service: General Surgery Author Type: Resident Type: Brief Op Note Filed: 08/10/2017 10:48 AM Note Text: BRIEF OPERATIVE / PROCEDURE NOTE LOG ID: [id number] Surgery/Procedure Date: 08/10/2017 Incision/Procedure Start Time: 8:12 AM Incision Close/Procedure End Time: 10:43 AM Surgeon(s)/Proceduralist(s) and Circulation Worker(s): Surgeon(s) and Role: * Angeles Hernandez - Primary * Chris Cat - Resident - Assisting No Additional Staff Procedure(s): Laparoscopic paraesophageal hernia repair Laparoscopic William fundoplication Anesthesia: General Findings: Paraesophageal hernia, reduced, sack excised, crural closed with sutures over 60 Fr bougie and william fundoplication performed Estimated Blood Loss: 10 mls Specimens: Hernia sac Wound Classification: Class 1, operative wound clean, non-traumatic, with no inflammation encountered, no break in technique, gastrointestinal and genitor-urinary tracts not entered Complications: None Pre- (more content not included)... Note HNO ID: [id number] Author: Gracia Mclaughlin Service: General Surgery Author Type: Physician Type: Discharge Summary Filed: 10/27/2018 10:38 PM Note Text: DISCHARGE SUMMARY PATIENT NAME: Jennifer Meredith Code Status: Not on file Highest Readmission Risk Score: 7 The 30 day readmissions risk score is derived from an internally validated risk model which evaluates patient level characteristics, utilization history, medication orders and lab results up until the day of discharge. Patients with a score of 40 or above are considered highest risk for readmission. Specific patient level drivers will be listed at the bottom of the summary. ADMIT DATE: 10/26/2018 DISCHARGE DATE: 10/27/18 Activity When You Leave the Hospital May bathe and shower May drive May use stairs No lifting restrictions Resume pre- hospital activity Diet Instructions After general anesthetic, your stomach may be sensitive. Begin slowly by drinking water, then clear liquids, and then a light meal Resume your pre-ho (more content not included)... Procedure Findings Note HNO ID: [id number] Author: Subhash Cat Service: General Surgery Author Type: Resident Type: Brief Op Note Filed: 08/10/2017 10:48 AM Note Text: BRIEF OPERATIVE / PROCEDURE NOTE LOG ID: [id number] Surgery/Procedure Date: 08/10/2017 Incision/Procedure Start Time: 8:12 AM Incision Close/Procedure End Time: 10:43 AM Surgeon(s)/Proceduralist(s) and Circulation Worker(s): Surgeon(s) and Role: * Angeles Hernandez - Primary * Chris Cat - Resident - Assisting No Additional Staff Procedure(s): Laparoscopic paraesophageal hernia repair Laparoscopic William fundoplication Anesthesia: General Findings: Paraesophageal hernia, reduced, sack excised, crural closed with sutures over 60 Fr bougie and william fundoplication performed Estimated Blood Loss: 10 mls Specimens: Hernia sac Wound Classification: Class 1, operative wound clean, non-traumatic, with no inflammation encountered, no break in technique, gastrointestinal and genitor-urinary tracts not entered Complications: None Pre- (more content not included)... Additional Source Comments INFORMATION SOURCE (unrecogn ized section and content) DATE CREATED AUTHOR 12/08/2017 [facility] DATE CREATED AUTHOR AUTHOR'S ORGANIZ ATION 12/08/2017 [facility] DATE CREATED AUTHOR AUTHOR'S ORGANIZ ATION 07/15/2018 [facility] DATE CREATED AUTHOR AUTHOR'S ORGANIZ ATION 02/24/2019 [facility] DATE CREATED AUTHOR AUTHOR'S ORGANIZ ATION 09/30/2023 [facility] DATE CREATED AUTHOR AUTHOR'S ORGANIZ ATION 01/25/2024 [facility] DATE CREATED AUTHOR AUTHOR'S ORGANIZ ATION 01/27/2024 [facility] DATE CREATED AUTHOR AUTHOR'S ORGANIZ ATION 02/25/2024 [facility] Care Team (unrecognized sect ion and content) Bilingual Counter Sales Retail Relationship Specialty Start Date End Date Barb Gee PCP - General Family Medicine 03/13/15 [employer] Retail Relationship Specialty Start Date End Date Barb Gee PCP - General Family Medicine 03/13/15 Bilingual [employer] Sales Retail Relationship Specialty Start Date End Date Barb eGe PCP - General Family Medicine 03/13/15 Bilingual Counter Sales Retail Relationship Specialty Start Date End Date Barb Gee PCP - General Family Medicine 03/13/15 Bilingual Counter Sales Retail Relationship Specialty Start Date End Date Barb Gee PCP - General Family Medicine 03/13/15 Bilingual Counter Sales Retail Relationship Specialty Start Date End Date Barb Gee PCP - General Family Medicine 03/13/15 Bilingual Counter Sales Retail Relationship Specialty Start Date End Date Barb Gee PCP - General Family Medicine 03/13/15 Source Comments (unrecognize d section and content) In the event this informatio n is protected by the Federal Confidentiality of Alcohol and Drug Abuse Patient Records regulations: The Federal rules restrict any use of the information to criminally investigate or prosecute any alcohol or drug abuse patient.[facility] CompanyIn the event this information is protected by the Federal Confidentiality of Alcohol and Drug Abuse Patient Records regulations: The Federal rules restrict any use of the information to criminally investigate or prosecute any alcohol or drug abuse patient.[facility] CompanyIn the event this information is protected by the Federal Confidentiality of Alcohol and Drug Abuse Patient Records regulations: The Federal rules restrict any use of the information to criminally investigate or prosecute any alcohol or drug abuse patient.[facility] CompanyIn the event this information is protected by the Federal Confidentiality of Alcohol and Drug Abuse Patient Records regulations: The Federal rules restrict any use of the information to criminally investigate or prosecute any alcohol or drug abuse patient.[facility] CompanyIn the event this information is protected by the Federal Confidentiality of Alcohol and Drug Abuse Patient Records regulations: The Federal rules restrict any use of the information to criminally investigate or prosecute any alcohol or drug abuse patient.[facility] CompanyIn the event this information is protected by the Federal Confidentiality of Alcohol and Drug Abuse Patient Records regulations: The Federal rules restrict any use of the information to criminally investigate or prosecute any alcohol or drug abuse patient.[facility] CompanyIn the event this information is protected by the Federal Confidentiality of Alcohol and Drug Abuse Patient Records regulations: The Federal rules restrict any use of the information to criminally investigate or prosecute any alcohol or drug abuse patient.[facility] Reason for Visit (unrecogniz ed section and content) Reason Comments Patient Question Reason Comments Patient Assistance Program [employer] for Am itiza Reason Comments Establish Care Follow up Reason Comments Medication Preauthorization PA for Ibsre la Reason Comments Outside Labs Results Reason Comments Refill Request FOR RECORDS PERTAINING TO PATIENTS WHO ARE OR HAVE BEEN ENROLLED IN A CHEMICAL DEPENDENCY/SUBSTANCEABUSE PROGRAM, SOME INFORMATION MAY BE OMITTED. This clinical summary was aggregated from multiple sources. Caution should be exercised in using it in the provision of clinical care. This summary normalizes information from multiple sources, and as a consequence, information in this document may materially change the coding, format and clinical context of patient data. In addition, data may be omitted in some cases. CLINICAL DECISIONS SHOULD BE BASED ON THE PRIMARY CLINICAL RECORDS. [employer] [facility] provides no warranty or guarantee of the accuracy or completeness of information in this document.
[2024-03-03 07:55] VITALS: BP 00/00
[2024-03-03] MEDS: FUROSEMIDE 40 MG/4 ML VIAL IVP (07:55)
== END 2024-03-03 07:22 | disposition home or self-care (01) ==
LOC: NM 07:22
PROVIDERS: PCP Family Medicine; Visit Provider Urology
DX: N13.30 Unspecified hydronephrosis (principal)
CPT/HCPCS: 78709; A9562; J1940